=== PATIENT | female | born 1960 | race Caucasian/White ===

== ENCOUNTER 2018-08-26 05:59 | Inpatient (IN) | payer OTHER ==
--- NOTE | 2018-08-19 10:38 | HP ---
AMENDED REPORT NOW INCLUDES COSIGNER DESIGNATION - ESIGNED BEFORE ADJUSTMENT PREOPERATIVE HISTORY AND PHYSICAL: DATE OF ADMISSION: 08/26/18 PROVIDER: Yolette Allison MD * (DICTATED BY ALISE PRAKASH) CHIEF COMPLAINT: Left shoulder pain. HISTORY OF PRESENT ILLNESS: Matthew is a 58-year-old female who has had ongoing trouble for her left shoulder pain. She has tried glenohumeral subacromial injections. She has known glenohumeral osteoarthritis. She has tried physical therapy with minimal relief. She is interested in surgical intervention at this point for correction of her problem. PAST MEDICAL HISTORY: 1. Depression. 2. History of pulmonary embolus. 3. History of drug addiction, has been sober since 1983. 4. Osteoarthritis. PAST SURGICAL HISTORY: 1. Vein stripping in bilateral legs. 2. Breast reduction. 3. Gastric bypass surgery. 4. Tonsillectomy. 5. Carpal tunnel release. 6. Shoulder debridement. 7. Ankle surgery. She reports no complications with anesthesia. CURRENT MEDICATIONS: 1. Folic acid 1 mg daily. 2. Voltaren gel to her finger joints 3 times daily. 3. Venlafaxine HCl 75 mg daily. 4. Famotidine 20 mg twice daily. 5. Cyanocobalamin 1000 mcg/mL injected monthly. 6. Calcium citrate supplement 1 tab twice daily. 7. Diclofenac sodium 75 mg twice daily. 8. Multivitamin daily. 9. Vitamin C supplement 500 mg daily. 10. Requip 1 mg 1 to 2 tablets p.o. in the evening. 11. Oxycodone 10 mg q.4 hours p.r.n. 12. Sertraline 25 mg daily. 13. Oxymorphone ER 10 mg in the morning, 15 mg in the evening. ALLERGIES: No known drug allergies. FAMILY HISTORY: Positive for hypertension and kidney disease in her father, coronary artery disease in her mother. SOCIAL HISTORY: The patient lives alone. She has been on permanent disability. She quit smoking several years ago. She denies alcoholic beverage use. She denies any illicit drug use currently. REVIEW OF SYSTEMS: A 14-point review of systems was discussed with the patient and all systems were negative except discussed in the HPI. PHYSICAL EXAMINATION GENERAL: She is a well-developed, well-nourished pleasant female in no acute distress at rest. She is alert and oriented x3 with appropriate mood and affect. VITAL SIGNS: The patient is 5 feet 7 inches, 216 pounds. Blood pressure 132/78 , pulse of 78, temperature 96.7. HEENT: Normocephalic, atraumatic. Her hearing and vision are grossly intact. NECK: Her trachea is midline. RESPIRATORY: Lungs are clear to auscultation bilaterally. No wheezes, rales or rhonchi. CARDIOVASCULAR: Regular rate and rhythm. No murmurs, rubs or gallops. Normal S1, S2. ABDOMEN: Soft, nondistended, nontender. Normal bowel sounds. EXTREMITIES: Exam of the left upper extremity, skin is intact. No abrasions or open wounds. There is no erythema or warmth. There is normal alignment. No gross deformity. She has forward flexion to 100 degrees, abduction to 80 degrees, external rotation to 40 degrees. She is able to flex and extend her elbow, wrist and hand. Her sensation to light touch is intact. She has a normal vascular exam. IMPRESSION: Left shoulder glenohumeral arthritis. PLAN: The patient is to undergo left total shoulder replacement by Dr. Allison on 08/26/18. The risks, benefits and postoperative course were discussed with the patient at length and she would like to proceed. The patient will likely need an in-hospital pain management consult given her history of long-term opioid use. All the patient's questions were answered to her full satisfaction. She is understanding to call with any problems or concerns. ALISE PRAKASH [id number]/[facility] #: [id number] [facility]
[~2018-08-26 05:59] MED LIST: Buffered Lidocaine 0.9% SYRIN* 5 ML/SYR SYRINGE INTRADERM ONE; DiMENhydriNATE IV* 50 MG/ML VIAL IV PUSH PRN; HYDROmorphone INJ1* 1 MG/ML SYRINGE IV PRN; Naloxone* 0.4 MG/ML 1 ML VIAL IV PRN; Ondansetron TAB* 4 MG PO ONE; PROCHLORPERAZINE INJ 5 MG/ML 2 ML VIAL IV PRN; Scopolamine 1.5 mg* PATCH TRANSDERM PRN; oxyCODONE TAB* 5 MG TAB PO PRN
[2018-08-26] MEDS ORDERED: Dexamethasone TAB* 4 MG PO ONE (06:00)
[2018-08-26] MEDS ORDERED: Famotidine IV* 10 MG/ML 2 ML (20 mg) IV ONE (06:00)
--- OUTSIDE RECORDS SUMMARY | 2018-08-26 06:03 | XMS REPORT ---
:1960 External Reference #:[id number] Author Organization [facility] Address [address] [facility] [address] [address] [place] [address] Phone [phone] Care Team Providers Name Role Phone Beny Russo MD Primary Care Physician Unavailable Payers Type Date Identification Numbers Payment Provider Subscriber Commercial Policy Number: [id number] Jose Gonzales [employer] Name: [id number] [address] PayID: [id number] [place] [address] Advance Directives Type Date Description Status Comment Other Directive 11/25/2017 Health Care Proxy Current and Verified Problems Date Description Provider Status Onset: 06/27/2014 Restless legs Donal Hopper M.D. Active Onset: 06/27/2014 Degenerative joint disease involving Donal Hopper M.D. Active multiple joints Onset: 07/22/2017 Localized, primary osteoarthritis of the Yolette Allison MD Active shoulder region Onset: 07/16/2018 Eruption Yolette Allison MD Active Family History Date Family Member(s) Problem(s) Comments General Cirrhosis Father Cirrhosis Social History Type Date Description Comments Marital Status Lives With partner Work Status Not Currently Working ETOH Use Denies alcohol use Recreational Drug Use Former Drug User Cocaine-not since 1983 Smoking Patient is a former smoker Exercise Type/Frequency Exercises regularly Allergies, Adverse Reactions, Alerts Date Description Reaction Status Severity Comments 04/14/2014 NKDA active Medications Medication Date Status Form Strength Qnty SIG Indications Ordering Provider Methotrexate 10/10 Active Tablets 2.5mg 30tab take 4 M79.642 s capsules/tabl Kev, ets by mouth M.D. once weekly on Fridays, to start 2 weeks after your upcoming shoulder surgery Folic Acid 08/19 Active Tablets 1mg 3tabs take one L40.50 capsule/table Kev, t daily by Clementina mouth Voltaren 04/14 Active Gel 1% 1unit apply to 333.94 Donal /2014 s finger joints Clementina Hopper tid Venlafaxine HCL Active Caps ER 75mg 90cap 1 by mouth Unknown ER /0000 24HR s every day Famotidine Active Tablets 20mg 60tab take one Unknown / s tablet by mouth twice a day Cyanocobalamin Active Solution 1000mcg/M 25ml 1.0 cubic Unknown /0000 L centimeters intramuscular every month Calcium Citrate Active Tablets 180ta 1 by mouth Unknown /0000 bs twice a day Diclofenac Active Tablets 75mg 60tab take 1 tablet Unknown Sodium /0000 DR s by mouth twice a day Multi-Vitamin/M Active Tablets 30tab 1 by mouth Unknown inerals /0000 s every day Vitamin C Active Tablets 500mg 90tab 1 by mouth Unknown /0000 s every day Requip Active Tablets 1mg 30tab take one to Unknown /0000 s two tablet by mouth every evening Oxycodone HCL Active Tab ER 20mg 1/2 tab qh4 Unknown ER /0000 12H prn. Abuse-Det Sertraline HCL Active Tablets 25mg 1 by mouth Unknown /0000 every day Oxymorphone HCL Active Tablets 10mg 1 by mouth in Unknown ER /0000 ER 12HR the am Oxymorphone HCL Active Tablets 15mg 1 by mouth in Unknown ER /0000 ER 12HR the pm Acetaminophen Active Tablets 325mg 2 tablets by Unknown /0000 mouth every 6 hours as needed for pain/fever Advil Active Tablets 200mg 3 tabs 4 Unknown /0000 times a day Methotrexate 03/27 Hx Tablets 2.5mg 48tab 4 tbs by M79.643 Zsofi s mouth every Cristiano, - week [employer] 10/27 Folic Acid 03/27 Hx Tablets 1mg 90tab 1 by mouth Z79.899 Zsofi s every day Cristiano, - [employer] 08/19 Ultracet 07/21 Hx Tablets 37.5-325m 40tab 1-2 tablets Nakia /2014 g s q4-6 hour as Mario, - needed pain M.D. 11/10 Fentanyl 00/00 Hx Patches 25mcg/HR 10uni apply one Unknown /0000 72HR ts patch once - every 3 days 07/12 Ferrous Sulfate Hx Tablets 325(65Fe) 90tab 1 by mouth Unknown /0000 mg s bid - 10/27 Hydrocodone-Mark Hx Tablets 10-325mg 120ta 1 to 2 po q 4 Unknown taminophen /0000 bs hours prn - 12/11 Meclizine HCL Hx Tablets 12.5mg 12tab as needed Unknown /0000 s - 10/27 Percocet Hx Tablets 5-325mg 60tab 1-2 by mouth Unknown /0000 s every 4 to 6 - hours as 01/02 needed pain /2014 Morphine Hx Caps ER 30mg take one tab Unknown Sulfate ER /0000 24HR twice a day - as needed for 06/15 pain 1@am /2017 1@pm Medications Administered in Office Medication Date Status Form Strength Qnty SIG Indications Ordering Provider Triamcinolone 06/09/ Administered Injection Zaneb (Kenalog) 2017 MD Estefany Depomedrol 40MG 03/18/ Administered Injection Johnson F 2017 MD Keyla No Injection 11/25/ Administered Injection Zaneb 2017 MD Estefany Triamcinolone 11/25/ Administered Injection Zaneb (Kenalog) 2017 MD Estefany Triamcinolone 11/25/ Administered Injection Zaneb (Kenalog) 2017 MD Estefany Triamcinolone 06/19/ Administered Injection Zaneb (Kenalog) 2016 MD Estefany Triamcinolone 06/19/ Administered Injection Zaneb (Kenalog) 2016 MD Estefany Depomedrol 40MG 05/27/ Administered Injection Johnson F 2016 MD Keyla Vital Signs Date Vital Result Comment 08/19/2018 Height 67 inches 5'7" Weight 211.00 lb Heart Rate 91 /min BP Systolic Sitting 128 mmHg BP Diastolic Sitting 72 mmHg Respiratory Rate 14 /min Pain Level 4 BMI (Body Mass Index) 33.0 kg/m2 08/14/2018 Height 67 inches Weight 216.00 lb Heart Rate 78 /min BP Systolic 132 mmHg BP Diastolic 78 mmHg Respiratory Rate 16 /min Body Temperature 96.7 F Pain Level 4 BMI (Body Mass Index) 33.8 kg/m2 07/16/2018 Height 67 inches 5'7" Weight 203.00 lb Heart Rate 66 /min BP Systolic Sitting 116 mmHg BP Diastolic Sitting 80 mmHg Respiratory Rate 14 /min Pain Level 4 BMI (Body Mass Index) 31.8 kg/m2 06/09/2018 Height 67 inches 5'7" Weight 203.00 lb BP Systolic 130 mmHg BP Diastolic 88 mmHg Respiratory Rate 18 /min Pain Level 8 BMI (Body Mass Index) 31.8 kg/m2 03/18/2018 Heart Rate 72 /min BP Systolic 122 mmHg BP Diastolic 78 mmHg Body Temperature 97.5 F Pain Level 7 11/25/2017 Height 67 inches 5'7" Weight 203.00 lb BP Systolic 116 mmHg BP Diastolic 62 mmHg Respiratory Rate 18 /min Pain Level 7 BMI (Body Mass Index) 31.8 kg/m2 09/23/2017 Height 67 inches 5'7" Weight 203.00 lb BP Systolic 130 mmHg BP Diastolic 70 mmHg Respiratory Rate 20 /min Pain Level 0 BMI (Body Mass Index) 31.8 kg/m2 07/22/2017 Height 67 inches 5'7" Weight 203.00 lb BP Systolic 130 mmHg BP Diastolic 83 mmHg Respiratory Rate 16 /min Body Temperature 97.5 F Pain Level 1 BMI (Body Mass Index) 31.8 kg/m2 06/19/2017 Height 67 inches 5'7" Weight 203.00 lb Heart Rate 83 /min BP Systolic 140 mmHg BP Diastolic 86 mmHg Respiratory Rate 16 /min Body Temperature 97.6 F Pain Level 5 BMI (Body Mass Index) 31.8 kg/m2 05/27/2017 Height 67 inches 5'7" Weight 203.00 lb BP Systolic 140 mmHg BP Diastolic 84 mmHg Respiratory Rate 17 /min Pain Level 9 BMI (Body Mass Index) 31.8 kg/m2 03/27/2016 Height 67.5 inches 5'7.50" Weight 181.00 lb Heart Rate 76 /min BP Systolic Sitting 128 mmHg BP Diastolic Sitting 70 mmHg Respiratory Rate 14 /min Pain Level 4 BMI (Body Mass Index) 27.9 kg/m2 01/02/2015 Height 67.5 inches 5'7.50" Weight 176.38 lb Heart Rate 72 /min BP Systolic Sitting 110 mmHg BP Diastolic Sitting 62 mmHg Pain Level 0 BMI (Body Mass Index) 27.2 kg/m2 08/19/2014 Height 67.5 inches 5'7.50" Heart Rate 66 /min BP Systolic 123 mmHg BP Diastolic 76 mmHg 07/21/2014 Height 67.5 inches 5'7.50" Weight 175.00 lb Heart Rate 66 /min BP Systolic 129 mmHg BP Diastolic 79 mmHg BMI (Body Mass Index) 27.0 kg/m2 06/27/2014 Height 67.5 inches 5'7.50" Weight 182.00 lb Heart Rate 68 /min BP Systolic Sitting 118 mmHg BP Diastolic Sitting 68 mmHg Pain Level 4 BMI (Body Mass Index) 28.1 kg/m2 06/16/2014 Height 67.5 inches 5'7.50" Heart Rate 94 /min BP Systolic 109 mmHg BP Diastolic 73 mmHg 05/17/2014 Height 67.5 inches 5'7.50" Weight 188.00 lb BP Systolic 120 mmHg BP Diastolic 70 mmHg BMI (Body Mass Index) 29.0 kg/m2 04/14/2014 Height 67.5 inches 5'7.50" Weight 188.75 lb Heart Rate 75 /min BP Systolic Sitting 128 mmHg BP Diastolic Sitting 86 mmHg Pain Level 9 BMI (Body Mass Index) 29.1 kg/m2 Results Test Date Test Result H/L Range Note Urinalysis Profile 08/14/2018 Urine Color Yellow Urine Appearance Clear Urine Specific [place] 1.017 1.010-1.030 Urine pH 8.0 5-9 Urine Urobilinogen Negative Negative Urine Ketones Negative Negative Urine Protein Negative Negative Urine Leukocytes Negative Negative Urine Blood Negative Negative Urine Nitrite Negative Negative Urine Bilirubin Negative Negative Urine Glucose Negative Negative Inr/Protime 08/14/2018 Inr 0.90 0.77-1.02 Laboratory test finding 08/14/2018 Partial Thrombo Time 31.6 seconds 26.0 -36.3 PTT CBC Auto Diff 08/14/2018 White Blood Count 11.3 10^3/uL High 3.5-10.8 Red Blood Count 4.14 10^6/uL 4.00-5.40 Hemoglobin 13.0 g/dL 12.0-16.0 Hematocrit 39 % 35-47 Mean Corpuscular Volume 94 fL 80-97 Mean Corpuscular Hemoglobin 31 pg 27-31 Mean Corpuscular HGB Conc 34 g/dL 31-36 Red Cell Distribution Width 13 % 10.5-15 Platelet Count 236 10^3/uL 150-450 Mean Platelet Volume 10.0 um3 7.4-10.4 Abs Neutrophils 8.1 10^3/uL High 1.5-7.7 Abs Lymphocytes 2.2 10^3/uL 1.0-4.8 Abs Monocytes 0.7 10^3/uL 0-0.8 Abs Eosinophils 0.3 10^3/uL 0-0.6 Abs Basophils 0 10^3/uL 0-0.2 Abs Nucleated RBC 0 10^3/uL Granulocyte % 71.6 % 38-83 Lymphocyte % 19.5 % Low 25-47 Monocyte % 6.1 % 0-7 Eosinophil % 2.5 % 0-6 Basophil % 0.3 % 0-2 Nucleated Red Blood Cells % 0.1 Basic Metabolic Panel 08/14/2018 Sodium 142 mmol/L 135-145 Potassium 3.6 mmol/L 3.5-5.0 Chloride 104 mmol/L 101-111 Co2 Carbon Dioxide 32 mmol/L 22-32 Anion Gap 6 mmol/L 2-11 Glucose 89 mg/dL 70-100 Blood Urea Nitrogen 10 mg/dL 6-24 Creatinine 0.66 mg/dL 0.51-0.95 BUN/Creatinine Ratio 15.2 8-20 Calcium 9.1 mg/dL 8.6-10.3 Egfr Non- 92.0 >60 Egfr 111.3 >60 1 Type & Screen 08/14/2018 Patient Blood Type O Positive Antibody Screen NEGATIVE Urine Culture And 08/14/2018 Urine Culture SEE RESULT BELOW 2 Sensitivities CBC Auto Diff 01/11/2015 White Blood Count 6.6 10^3/uL 4.8-10.8 Red Blood Count 4.16 10^6/uL 4.0-5.4 Hemoglobin 13.3 g/dL 12.0-16.0 Hematocrit 39 % 35-47 Mean Corpuscular Volume 95 fL 80-97 Mean Corpuscular Hemoglobin 32 pg High 27-31 Mean Corpuscular HGB Conc 34 g/dL 31-36 Red Cell Distribution Width 13 % 10.5-15 Platelet Count 197 10^3/uL 150-450 Mean Platelet Volume 10 um3 7.4-10.4 Abs Neutrophils 3.6 10^3/uL 1.5-7.7 Abs Lymphocytes 2.3 10^3/uL 1.0-4.8 Abs Monocytes 0.5 10^3/uL 0-0.8 Abs Eosinophils 0.2 10^3/uL 0-0.6 Abs Basophils 0 10^3/uL 0-0.2 Abs Nucleated RBC 0 10^3/uL Granulocyte % 54.2 % 38-83 Lymphocyte % 34.5 % 25-47 Monocyte % 7.1 % 1-9 Eosinophil % 3.6 % 0-6 Basophil % 0.6 % 0-2 Nucleated Red Blood Cells % 0 Liver Function Panel 01/11/2015 Total Protein 5.9 g/dL Low 6.4-8.9 Albumin 3.9 g/dL 3.2-5.2 Globulin 2.0 g/dL 2-4 Albumin/Globulin Ratio 2.0 1-3 Total Bilirubin 0.40 mg/dL 0.2-1.0 Direct Bilirubin 0.10 mg/dL 0.03-0.18 Indirect Bilirubin 0.3 mg/dL 0.3-1.0 Alkaline Phosphatase 41 U/L 34-104 Alt 11 U/L 7-52 Ast 15 U/L 13-39 Iron & Iron Binding Capacity 01/11/2015 Iron 83 g/dL 50-212 Unsaturated Iron Binding 247 g/dL Total Iron Binding Capacity 330 g/dL 250-450 % Iron Saturation 25 % 15-55 Laboratory test finding 01/11/2015 Ferritin 29.6 ng/mL 11-307 Vitamin B12 294 pg/mL 180-914 3 Folate > 20.00 ng/mL >3.99 Hepatitis C Antibody Nonreactive Nonreactive Ssa/SSB Abs Igg 01/11/2015 SS-A/Ro Antibody <0.2 U 4 SS-B/La Antibody 0.3 U 5 Laboratory test finding 01/11/2015 C Reactive Protein < 1.00 mg/L < 5.00 6 Erythrocyte Sed Rate 10 mm/Hr 0-30 Uric Acid 4.5 mg/dL 2.3-6.6 Rheumatoid Factor <15 IU/mL <15 7 Comp Metabolic Panel 01/11/2015 Sodium 136 mmol/L 133-145 Potassium 3.9 mmol/L 3.5-5.0 Chloride 102 mmol/L 101-111 Co2 Carbon Dioxide 30 mmol/L 22-32 Anion Gap 4 mmol/L 2-11 Glucose 124 mg/dL High 70-100 Blood Urea Nitrogen 8 mg/dL 6-24 Creatinine 0.72 mg/dL 0.51-0.95 BUN/Creatinine Ratio 11.1 8-20 Calcium 8.9 mg/dL 8.6-10.3 Total Protein 5.9 g/dL Low 6.4-8.9 Albumin 3.9 g/dL 3.2-5.2 Globulin 2.0 g/dL 2-4 Albumin/Globulin Ratio 2.0 1-3 Total Bilirubin 0.40 mg/dL 0.2-1.0 Alkaline Phosphatase 41 U/L 34-104 Alt 11 U/L 7-52 Ast 15 U/L 13-39 Egfr Non- 84.4 >60 Egfr 108.6 >60 8 Laboratory test 01/11/2015 Methylmalonic Acid 0.25 nmol/mL <=0.40 9 finding HIV 1/2 AB 01/11/2015 HIV 1 2 Antibody Nonreactive Nonreactive 10 Evaluation Surgical Pathology 06/08/2014 S RUN DATE: <SEE NOTE> Comp Metabolic 04/22/2014 Sodium 138 mmol/L 133-145 Panel Potassium 4.2 mmol/L 3.7-5.6 Chloride 104 mmol/L 101-111 Co2 Carbon Dioxide 30 mmol/L 22-32 Anion Gap 4 mmol/L 2-11 Glucose 88 mg/dL 70-100 Blood Urea Nitrogen 8 mg/dL 6-24 Creatinine 0.80 mg/dL 0.51-0.95 BUN/Creatinine Ratio 10.0 8-20 Calcium 9.0 mg/dL 8.6-10.3 Total Protein 6.2 g/dL Low 6.4-8.9 Albumin 3.9 g/dL 3.2-5.2 Globulin 2.3 g/dL 2-4 Albumin/Globulin Ratio 1.7 1-3 Total Bilirubin 0.40 mg/dL 0.2-1.0 Alkaline Phosphatase 43 U/L 34-104 Alt 21 U/L 7-52 Ast 24 U/L 13-39 Egfr Non- 75.0 >60 Egfr 96.5 >60 12 1 Because ethnic data is not always readily available, this report includes an eGFR for both -Americans and non- Americans. The National Kidney Disease Education Program (NKDEP) does not endorse the use of the MDRD equation for patients that are not between the ages of 18 and 70, are , have extremes of body size, muscle mass, or nutritional status, or are non- or non-. According to the National Kidney Foundation, irrespective of diagnosis, the stage of the disease is based on the level of kidney function: Stage Description GFR(mL/min/1.73 m(2)) 1 Kidney damage with normal or decreased GFR 90 2 Kidney damage with mild decrease in GFR 60-89 3 Moderate decrease in GFR 30-59 4 Severe decrease in GFR 15-29 5 Kidney failure <15 (or dialysis) 2 SEE RESULT BELOW Name: MATTHEW REYES : [address]: Yolette Allison MD Acct: [id number] Unit: [id number] AGE: 58 Location: [facility] Re08/14/18 SEX: F Status: REG REF SPEC: [id number] RENA: 08/14/[address]: Yolette Allison MD REQ: [id number] RECD: 08/14/18 STATUS: COMP _ SOURCE: URINE SPDESC: ORDERED: Urine Culture QUERIES: Urine Source: Clean Catch Procedure Result Reported Site Urine Culture Final 08/15/18- 934 ML No Growth (<1,000 CFU/mL) * ML - Main Lab . END OF REPORT DEPARTMENT OF PATHOLOGY, [address] [place] [address] Hao Duff M.D. Director [facility] # [id number] 3 Normal Range 180 to 914 Indeterminate Range 145 to 180 Deficient Range <145 4 REFERENCE VALUE <1.0 (Negative) 5 REFERENCE VALUE <1.0 (Negative) Test Performed by: [facility] - [address] [address] Certified Ophthalmic Technologist: Valerio Sanderson II, M.D., Ph.D. 6 Acute inflammation: >10.00 7 Test Performed by: [address] [address] Certified Ophthalmic Technologist: Valerio Sanderson II, M.D., Ph.D. 8 Because ethnic data is not always readily available, this report includes an eGFR for both -Americans and non- Americans. The National Kidney Disease Education Program (NKDEP) does not endorse the use of the MDRD equation for patients that are not between the ages of 18 and 70, are , have extremes of body size, muscle mass, or nutritional status, or are non- or non-. According to the National Kidney Foundation, irrespective of diagnosis, the stage of the disease is based on the level of kidney function: Stage Description GFR(mL/min/1.73 m(2)) 1 Kidney damage with normal or decreased GFR 90 2 Kidney damage with mild decrease in GFR 60-89 3 Moderate decrease in GFR 30-59 4 Severe decrease in GFR 15-29 5 Kidney failure <15 (or dialysis) 9 Test Performed by: [place] [address] Certified Ophthalmic Technologist: Valerio Sanderson II, M.D., Ph.D. 10 It is recognized that currently available assays for the detection of antibodies to HIV-1 and/or HIV-2 may not detect all infected individuals. HIV antibodies may be undetectable in some stages of the infection and in some clinical conditions. The performance of this assay has not been established for populations of infants or children. Assayed by Chemiluminescence Microparticle Immunoassay on the Siemens Advia Centaur CP. Values obtained with different methods or kits cannot be used interchangeably.The diagnostic specificity of the ADVIA Centaur 1/O/2 Enhanced assay in the low risk population was 99.90% (6052/6058) with a 95% confidence interval of 99.78 to 99.96%. 11 RUN DATE: 06/15/14 [facility] LAB LIVE PAGE 1 RUN TIME: [address] [place] [address] Specimen Inquiry Name: MATTHEW REYES : [address]: Shivam Marinelli MD Acct: [id number] Unit: [id number] AGE: 54 Location: OR Re06/08/14 SEX: F Status: REG SD SPEC: [id number] RENA: 06/08/14- [facility] DR: Shivam Marinelli MD REQ: [id number] RECD: 06/08/148509 STATUS: SOUT _ ORDERED: Decal, LEVEL III FINAL DIAGNOSIS Loose bodies from left shoulder, excision: Osteocartilaginous loose bodies. PRE-OPERATIVE DIAGNOSIS Osteoarthritis left shoulder. GROSS DESCRIPTION The specimen is received in formalin labeled Matthew GonzalesIvette Bruce, Loose Bodies from Left Shoulder and consists of four mc-white irregular hard fragments ranging from 0.9 x 0.4 x 0.3 cm. to 2.0 x 1.6 x 1.2 cm. The specimen is sectioned and inbound sales representative sections are submitted in one cassette following decalcification. MICROSCOPIC DESCRIPTION Signed (signature on file) Hao Duff MD 1537 END OF REPORT * ML=Testing performed at Main Lab DEPARTMENT OF PATHOLOGY, [address] [place] [address] Hao Duff M.D. Director [facility] # [id number] 12 Because ethnic data is not always readily available, this report includes an eGFR for both -Americans and non- Americans. The National Kidney Disease Education Program (NKDEP) does not endorse the use of the MDRD equation for patients that are not between the ages of 18 and 70, are , have extremes of body size, muscle mass, or nutritional status, or are non- or non-. According to the National Kidney Foundation, irrespective of diagnosis, the stage of the disease is based on the level of kidney function: Stage Description GFR(mL/min/1.73 m(2)) 1 Kidney damage with normal or decreased GFR 90 2 Kidney damage with mild decrease in GFR 60-89 3 Moderate decrease in GFR 30-59 4 Severe decrease in GFR 15-29 5 Kidney failure <15 (or dialysis) Procedures Date CPT Code Description Status Comment 06/09/201881065 Inj/Aspir Major JT Or Bursa W/ US Completed 03/18/201887334 Inject/Drain Joint/Bursa Major W/O US Completed 11/25/201742152 Inject/Drain Joint/Bursa Major W/O US Completed 06/19/201741995 Inject/Drain Joint/Bursa Major W/O US Completed 05/27/201705514 Inject/Drain Joint/Bursa Major W/O US Completed 08/09/2014 95439 Carpal Tunnel Release Completed 06/08/2014 30230 arthroscopy w/removal loose body or foreign Completed body 06/08/2014 41470 arthroscopy w/removal loose body or foreign Completed body 06/08/2014 86652 Arthrotomy Glenohumeral Joint W/Exploration Completed 05/17/2014 13548 Rad Shoulder Comp, Min. 2 Views Completed 05/10/2013 Mammogram Completed Normal Encounters Type Date Location Provider CPT E/M Dx Office Visit 07/21/2018 [facility] [place] [address] D69.2 9:20a Office Visit 07/16/2018 [facility] [place] [address] M19.012 1:30p C.M.AIvette R21 Office Visit 06/09/2018 1:15p [place] [address] M19.012 Of CIvetteMLyn Office Visit 03/18/2018 2:45p [facility] Ramires 15344 M17.11 Of Hermila UNDERWOOD M25.561 Office Visit 09/23/2017 9:30a [facility] [place] [address] M19.012 C.M.AIvette Office Visit 07/22/2017 11:30a [facility] [place] [address] M19.012 C.M.AIvette Office Visit 06/19/2017 11:00a [facility] [place] [address] M25.512 C.M.AIvette M19.012 Office Visit 05/27/2017 1:30p [facility] Of [facility] Ramires 89851 M17.11 Hermila UNDERWOOD M19.012 Office Visit 03/27/2016 1:30p Rheumatology Services Ghulam Quinonez [address] M79.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 10317 333.94 Of [facility] 715.09 Office Visit 05/17/2014 1:30p [facility] Services Of Shivam Marinelli M.D. 88143 715.11 C.M.AIvette Office Visit 04/14/2014 3:00p Rheumatology Services Donal Hopper M.D. 48732 715.09 Of [facility] 333.94 Plan of Care Future Appointment(s):10/05/2018 2:30 pm - KE Cruz at Rheumatology Services [facility]09/08/2018 1:15 pm - Yolette Allison MD at Orthopedic Services [facility]08/26/2018 7:30 am - Dennise Park PA-C at Orthopedic Services [facility]08/26/2018 7:30 am - Yolette Allison MD at Orthopedic Services [facility]08/2018 - Yoel Angulo M.D.L40.50 Arthropathic psoriasis, unspecifiedNew Medication:Folic Acid 1 mgM17.11 Unilateral primary osteoarthritis, right kneeZ79.899 Other joint terminal attack controller (current) drug therapyFollow up:Follow up in 6 weeks with me or SmlmciR80.642 Pain in left handNew Medication:Methotrexate 2.5 mg
--- OUTSIDE RECORDS SUMMARY | 2018-08-26 06:04 | XMS REPORT ---
:1960 External Reference #:[id number] Author Organization [facility] Address [address] [place] [address] Phone [phone] Care Team Providers Name Role Phone Beny Russo MD Primary Care Physician Unavailable Payers Type Date Identification Numbers Payment Provider Subscriber Commercial Policy Number: [id number] Jose Gaocahy Group Name: [id number] [address] PayID: [id number] [place] [address] Advance Directives Type Date Description Status Comment [...] Form Strength Qnty SIG Indications Ordering Provider Folic Acid 03/27 Active Tablets 1mg 90tab 1 by mouth Z79.899 Zsofia /2016 s every day KE Quinonez Voltjael 04/14 Active Gel 1% 1unit apply to 333.94 Donal /2014 s finger joints Clementina Hopper tid Venlafaxine HCL Active Caps ER 75mg 90cap 1 by mouth Unknown ER /0000 24HR s every day Famotidine Active Tablets 20mg 60tab take one Unknown /0000 s tablet by mouth twice a day [...] Unknown ER /0000 ER 12HR the pm Methotrexate 03/27 Hx Tablets 2.5mg 48tab 4 tbs by M79.643 Asaelofia s mouth every Cristiano, - week DIRECTOR OF ASSESSMENT 10/27 Ultracet 07/21 Hx Tablets 37.5-325m 40tab 1-2 tablets Nakia /2014 g s q4-6 hour as Martin, - needed pain M.D. 11/10 Fentanyl Hx Patches 25mcg/HR 10uni apply one Unknown /0000 72HR ts patch once - every 3 days 07/12 Ferrous Sulfate Hx Tablets 325(65Fe) 90tab 1 by mouth Unknown /0000 mg s bid - 10/27 Hydrocodone-Mark Hx Tablets 10-325mg 120ta 1 to 2 po q 4 Unknown taminophen /0000 bs hours prn - 12/11 Meclizine HCL 0000 Hx Tablets 12.5mg 12tab as needed Unknown /0000 s - 10/27 Percocet 0000 Hx Tablets 5-325mg 60tab 1-2 by mouth Unknown /0000 s every 4 to 6 - hours as 01/02 needed pain /2014 Morphine Hx Caps ER 30mg take one tab Unknown Sulfate ER /0000 24HR twice a day - as needed for 06/15 pain 1@am /2018 1@pm Medications Administered in Office Medication Date [...] Keyla Vital Signs Date Vital Result Comment 08/14/2018 Height 67 inches Weight 216.00 lb [...] Test Date Test Result H/L Range Note Ssa/SSB Abs Igg 01/11/2015 SS-A/Ro Antibody <0.2 U 1 SS-B/La Antibody 0.3 U 2 Laboratory test finding 01/11/2015 C Reactive Protein < 1.00 mg/L < 5.00 3 Erythrocyte Sed Rate 10 mm/Hr 0-30 Uric Acid 4.5 mg/dL 2.3-6.6 Rheumatoid Factor <15 IU/mL <15 4 Comp Metabolic Panel 01/11/2015 Sodium 136 mmol/L [...] Egfr Non- 84.4 >60 Egfr 108.6 >60 5 Laboratory test finding 01/11/2015 Methylmalonic Acid 0.25 nmol/mL <= 0.40 6 HIV 1/2 AB Evaluation 01/11/2015 HIV 1 2 Antibody Nonreactive Nonreactive 7 Laboratory test finding 01/11/2015 Ferritin 29.6 ng/mL 11-307 Vitamin B12 294 pg/mL 180-914 8 Folate > 20.00 ng/mL >3.99 Hepatitis C Antibody Nonreactive Nonreactive Iron & Iron Binding Capacity 01/11/2015 Iron 83 g/dL 50-212 Unsaturated Iron Binding 247 g/dL Total Iron Binding Capacity 330 g/dL 250-450 % Iron Saturation 25 % 15-55 Liver Function Panel 01/11/2015 Total Protein 5.9 g/dL Low 6.4-8.9 Albumin 3.9 g/dL 3.2-5.2 Globulin 2.0 g/dL 2-4 Albumin/Globulin Ratio 2.0 1-3 Total Bilirubin 0.40 mg/dL 0.2-1.0 Direct Bilirubin 0.10 mg/dL 0.03-0.18 Indirect Bilirubin 0.3 mg/dL 0.3-1.0 Alkaline Phosphatase 41 U/L 34-104 Alt 11 U/L 7-52 Ast 15 U/L 13-39 CBC Auto Diff 01/11/2015 White Blood Count [...] 0-2 Nucleated Red Blood Cells % 0 Surgical Pathology 06/08/2014 S RUN DATE: 06/15/ <SEE NOTE> 9 Comp Metabolic Panel 04/22/2014 Sodium 138 mmol/L 133-145 Potassium 4.2 mmol/L 3.7-5.6 Chloride 104 mmol/L [...] Egfr Non- 75.0 >60 Egfr 96.5 >60 10 1 REFERENCE VALUE <1.0 (Negative) 2 REFERENCE VALUE <1.0 (Negative) Test Performed by: [place] [address] Traffic Sign Supervisor: Valerio Sanderson II, M.D., Ph.D. 3 Acute inflammation: >10.00 4 Test Performed by: [place] [address] Traffic Sign Supervisor: Valerio Sanderson II, M.D., Ph.D. 5 Because ethnic data is not always readily [...] 15-29 5 Kidney failure <15 (or dialysis) 6 Test Performed by: [place] [address] Traffic Sign Supervisor: Valerio Sanderson II, M.D., Ph.D. 7 It is recognized that currently available assays [...] 95% confidence interval of 99.78 to 99.96%. 8 Normal Range 180 to 914 Indeterminate Range 145 to 180 Deficient Range <145 9 RUN DATE: 06/15/14 [facility] LAB LIVE PAGE 1 RUN TIME: [address] [place] [address] Specimen Inquiry Name: MATTHEW REYES : [address]: Shivam Marinelli MD Acct: [id number] Unit: [id number] AGE: 54 Location: OR Re06/08/14 SEX: F Status: REG [facility] SPEC: [id number] RENA: 06/08/14- [facility] DR: Shivam Marinelli MD REQ: [id number] RECD: 06/08/141854 STATUS: SOUT _ ORDERED: Decal, LEVEL III [...] 1.2 cm. The specimen is sectioned and registered representative sections are submitted in one cassette following decalcification. MICROSCOPIC DESCRIPTION Signed (signature on file) Hao Duff MD 1537 END OF REPORT * ML=Testing performed at Main Lab DEPARTMENT OF PATHOLOGY, [address] [place] [address] Hao Duff M.D. Director [facility] # [id number] 10 Because ethnic data is not always readily [...] Procedures Date CPT Code Description Status Comment 06/09/2018 Inj/Aspir Major JT Or Bursa W/ US Completed 03/18/2018 Inject/Drain Joint/Bursa Major W/O US Completed 11/25/2017 Inject/Drain Joint/Bursa Major W/O US Completed 06/19/2017 Inject/Drain Joint/Bursa Major W/O US Completed 05/27/201750215 Inject/Drain Joint/Bursa Major W/O US Completed 08/09/2014 72438 Carpal Tunnel Release Completed 06/08/2014 15308 arthroscopy w/removal loose body or foreign Completed body 06/08/2014 51998 arthroscopy w/removal loose body or foreign Completed body 06/08/2014 61066 Arthrotomy Glenohumeral Joint W/Exploration Completed 05/17/2014 54312 Rad Shoulder Comp, Min. 2 Views Completed 05/10/2013 Mammogram Completed Normal Encounters Type Date Location Provider CPT E/M Dx Office Visit 07/21/2018 [facility] [address] D69.2 9:20a Office Visit 07/16/2018 [facility] [place] [address] M19.012 1:30p Hermila R21 Office Visit 06/09/2018 1:15p [facility] [place] [address] M19.012 Of Hermila Office Visit 03/18/2018 2:45p [facility] [place] Ramires 79002 M17.11 Of Hermila [place] M25.561 Office Visit 09/23/2017 9:30a [facility] [place] [address] M19.012 [facility] Office Visit 07/22/2017 11:30a [facility] [place] [address] M19.012 [facility] Office Visit 06/19/2017 11:00a [facility] [place] [address] M25.512 C.MLyn M19.012 Office Visit 05/27/2017 1:30p [facility] Of [place] 08114 M17.11 Hermila [place] M19.012 Office Visit 03/27/2016 1:30p Rheumatology Services Ghulam Quinonez, [address] M79.643 Of [facility] M25.50 Z79.899 M79.642 M79.641 M25.522 M25.512 Office Visit 01/02/2015 2:30p Rheumatology Services Asaelmontserratankush Quinonez [facility] [address] 719.49 Of [facility] 715.09 274.9 710.2 V58.69 Office Visit 07/21/2014 1:15p [facility] Of Nakia Martin [address] 354.0 C.MLyn Mcrae Office Visit 06/27/2014 10:20a Rheumatology Services Donal Hopper M.D. 73534 333.94 Of [facility] 715.09 Office Visit 05/17/2014 1:30p [facility] Of Shivam Marinelli M.D. 89196 715.11 C.M[facility]A. Office Visit 04/14/2014 3:00p Rheumatology Services Donal Hopper M.D. 53285 715.09 Of [facility] 333.94 Plan of Care Future Appointment(s):08/26/2018 7:30 am - Dennise Park PA-C at [facility]08/26/2018 7:30 am - Yolette Allison MD at [facility]08/19/2018 2:00 pm - Yoel Angulo M.D. at [facility] Services Of [facility]
[2018-08-26] MEDS ORDERED: Ondansetron ODT TAB* 4 MG ONE (06:07)
[2018-08-26] MEDS ORDERED: Dexamethasone TAB* 4 MG ONE (06:07)
[2018-08-26] MEDS ORDERED: Morphine VIAL* 10 MG/ML 1 ML VIAL ONE (06:07)
[2018-08-26] MEDS ORDERED: Famotidine TAB* 20 MG ONE (06:08)
[2018-08-26] MEDS ORDERED: Famotidine IV* 10 MG/ML 2 ML (20 mg) ONE (06:08)
[2018-08-26] MEDS ORDERED: ceFAZolin 2 GM PREMIX in ORs 2 GM/50 ML BAG IVPB ONE (06:08)
[2018-08-26] MEDS ORDERED: Midazolam* 1 MG/ML 5 ML VIAL (5 MG) ONE (06:59)
[2018-08-26] MEDS ORDERED: fentaNYL* 50 MCG/ML 2 ML VIAL (100 MCG VIAL) ONE ×2 (06:59→11:06)
[2018-08-26] MEDS ORDERED: Atracurium* 10 MG/ML 10 ML VIAL ONE (06:59)
[2018-08-26] MEDS ORDERED: KETAMINE HCL* 50 MG/ML 10 ML VIAL ONE (06:59)
[2018-08-26] MEDS ORDERED: Ropivacaine* 2 MG/ML 20 ML VIAL (0.2%) ONE (07:07)
[2018-08-26] MEDS ORDERED: Lidocaine 2% PF * 5 ML VIAL ONE (08:42)
[2018-08-26] MEDS ORDERED: Propofol* 10 MG/ML 20 ML BTL IV PUSH ONE (08:42)
[2018-08-26] MEDS ORDERED: Phenylephrine INJ* 10 MG/ML 1 ML VIAL (10 MG) ONE (08:42)
[2018-08-26] MEDS ORDERED: Bupivacaine 0.25% SDV* 30 ML ONE (08:42)
[2018-08-26] MEDS ORDERED: PROCHLORPERAZINE INJ 5 MG/ML 2 ML VIAL ONE (08:43)
[2018-08-26] MEDS ORDERED: HYDROmorphone INJ1* 1 MG/ML SYRINGE ONE (09:14)
[2018-08-26] MEDS ORDERED: hydrALAZINE IV* 20 MG/ML VIAL ONE (09:35)
[2018-08-26] MEDS ORDERED: Labetalol IV* 5 MG/ML 20 ML VIAL ONE (09:37)
[2018-08-26] MEDS ORDERED: Ondansetron ODT TAB* 4 MG PO PRN (10:28)
[2018-08-26] MEDS ORDERED: Polyethylene Glycol 3350* 17 GM PACKET PO PRN (10:28)
[2018-08-26] MEDS ORDERED: oxyCODONE TAB* 5 MG TAB PO PRN ×3 (10:28→18:07)
[2018-08-26] MEDS ORDERED: traZODone TAB* 50 MG TAB PO PRN (10:28)
[2018-08-26] MEDS ORDERED: Morphine VIAL* 4 MG/ML VIAL (1 ml vial) IV PRN ×2 (10:28→18:06)
[2018-08-26] MEDS ORDERED: Cyclobenzaprine TAB* 10 MG PO PRN (10:28)
[2018-08-26] MEDS ORDERED: Ondansetron INJ* 2 MG/ML VIAL IV PRN (10:28)
[2018-08-26] MEDS ORDERED: diPHENhydraMINE PO* 25 MG PO PRN (10:28)
[2018-08-26] MEDS ORDERED: Bisacodyl SUPP* 10 MG SUPP PR PRN (10:28)
[2018-08-26] MEDS ORDERED: Magnesium Hydroxide LIQ* 30 ML UDC PO PRN (10:28)
[2018-08-26] MEDS ORDERED: Meclizine TAB* 12.5 MG PO PRN (10:44)
[2018-08-26] MEDS ORDERED: Acetaminophen TAB* 325 MG ONE (10:56)
[2018-08-26] MEDS ORDERED: Enoxaparin(*) 40 MG/0.4 ML SYR SUBCUT SCH (11:00)
[2018-08-26] MEDS: fentaNYL* 50 MCG/ML 2 ML VIAL (100 MCG VIAL) IV PRN ×2 (11:10→11:17)
--- NOTE | 2018-08-26 11:31 | RAD ---
INDICATION: Status post left shoulder replacement surgery. COMPARISON: Comparison is made with a prior study from May 27, 2017. TECHNIQUE: 3 views of the left shoulder were obtained. FINDINGS: The patient is status post left shoulder arthroplasty. The bones and prostheses are in normal alignment. There is a surgical drain present. IMPRESSION: STATUS POST LEFT SHOULDER ARTHROPLASTY.
[2018-08-26] MEDS: Acetaminophen TAB* 325 MG PO SCH ×2 (13:45→22:02)
[2018-08-26] MEDS: ceFAZolin 1 GM in Dextrose (*) 1 GM/50 ML BAG IVPB SCH ×2 (16:33→23:45)
--- NOTE | 2018-08-26 17:48 | CONSULT ---
Consult Consult: INPATIENT PAIN CONSULTATION Matthew Barrera is a 58 year old female. She has a history of arthritic pain going back at least 10 years. It affected multiple joints including her hands and feet as well as her knees. She has recently been diagnosed with Psoriatic Arthritis. She has been on chronic opioid therapy for about 10 years. She gets her medications from Dr. Russo. According to the patient, she is on Opana ER 10 mg in the morning and 15 mg in the evening, and takes oxycodone 20 mg every 4 hours as needed during the day, with a MDD of 6. This was consistent with what is noted on I Stop. She has had left shoulder pain for a while and has seen Dr. Allison for this. Today, she underwent a left total shoulder replacement. She is fairly comfortable now, but had a shoulder block which has not worn off. I am asked to see her in consult to manage post op pain. PAST MEDICAL HISTORY: Restless Leg Syndrome, Psoriatic Arthritis, PE. Gastric Bypass. Left ankle surgery. ALLERGIES: NKDA Current Medications Acetaminophen (Tylenol Tab*) 975 mg PO Q8HR COUNT INCLUDES THE [facility] Last Admin: 08/26/18 13:45 Dose: 975 mg Bisacodyl (Dulcolax Supp*) 10 mg VT DAILY PRN PRN Reason: constipation Citalopram Hydrobromide (Celexa Tab*) 20 mg PO QAM MARLENE Cyclobenzaprine HCl (Flexeril Tab*) 10 mg PO TID PRN PRN Reason: SPASMS Diphenhydramine HCl (Benadryl Po*) 25 mg PO Q6H PRN PRN Reason: itching or sleep Docusate Sodium (Colace Cap*) 100 mg PO BID COUNT INCLUDES THE [facility] Enoxaparin Sodium (Lovenox(*)) 40 mg SUBCUT Q24H COUNT INCLUDES THE [facility] Famotidine (Pepcid Tab*) 20 mg PO QAM COUNT INCLUDES THE [facility] Cefazolin Sodium/Dextrose (Kefzol 1 Gm In Dextrose Duplex (*)) 1 gm in 50 mls @ 200 mls/hr IVPB Q8H COUNT INCLUDES THE [facility] Stop: 08/27/18 08:14 Last Admin: 08/26/18 16:33 Dose: 200 mls/hr Lactated Ringer's (Lactated Ringers 1000 Ml Bag*) 1,000 mls @ 100 mls/hr IV PER RATE COUNT INCLUDES THE [facility] Last Admin: 08/26/18 12:00 Dose: 100 mls/hr Lactulose (Lactulose*) 30 ml PO Q6H PRN PRN Reason: constipation Magnesium Hydroxide (Milk Of Magnesia Liq*) 30 ml PO Q6H PRN PRN Reason: constipation Meclizine HCl (Antivert Tab*) 12.5 mg PO Q6H PRN PRN Reason: VERTIGO Morphine Sulfate (Morphine Vial*) 2 mg IV Q2H PRN PRN Reason: PAIN - BREAKTHROUGH Ondansetron HCl (Zofran Inj*) 4 mg IV Q6H PRN PRN Reason: nausea Ondansetron HCl (Zofran Odt Tab*) 4 mg PO Q6H PRN PRN Reason: NAUSEA Oxycodone HCl (Roxycodone Tab*) 10 mg PO Q4H PRN PRN Reason: PAIN Last Admin: 08/26/18 13:46 Dose: 10 mg Oxycodone HCl (Roxycodone Tab*) 15 mg PO Q4H PRN PRN Reason: PAIN - SEVERE Oxymorphone HCl (Opana Er (Nf)) 15 mg PO QPM COUNT INCLUDES THE [facility] Last Admin: 08/26/18 17:37 Dose: 15 mg Oxymorphone HCl (Opana Er (Nf)) 10 mg PO QAM COUNT INCLUDES THE [facility] Pharmacy Profile Note (Scopolamine Patch Remove*) 1 note PATCH OFF Q72H ONE Stop: 08/29/18 05:49 Polyethylene Glycol/Electrolytes (Miralax*) 17 gm PO DAILY PRN PRN Reason: Constipation Ropinirole HCl (Requip Tab*) 3 mg PO QPM COUNT INCLUDES THE [facility] Last Admin: 08/26/18 17:37 Dose: 3 mg Trazodone HCl (Desyrel Tab*) 25 mg PO BEDTIME PRN PRN Reason: insomnia SOCIAL HISTORY: Denies Tobacco use or alcohol use. Smokes marijuana once a week. Used cocaine in high school, none since 1979. Lives with partner in one story house, [address] VITAL SIGNS: Temp Pulse Resp BP Pulse Ox 98.4 F 83 16 117/59 96 08/26/18 16:04 08/26/18 16:04 08/26/18 17:37 08/26/18 16:04 08/26/18 16:04 EXAM: GENERAL: Awake, alert and oriented LUNGS: Clear bilaterally HEART: regular rhythm ABDOMEN: Soft EXTREMITIES: Left shoulder wrapped, immobilized NEUROLOGIC: alert, oriented. Able to move both legs and right arm. ASSESSMENT: 1. Left Shoulder Replacement 2. Psoriatic Arthritis 3. Chronic Pain PLAN: Opioids will need to be adjusted to account for her chronic use. Will change oxycodone to 30 mg Q4H PRN, and change IV Morphine to 4 mg IV Q2H PRN. Given her gastric bypass, it is unclear how much she absorbs of the Opana ER, so will leave that as is. I will add bowel medications. I will follow. Thanks
[2018-08-26] MEDS ORDERED: CMCS:Oxymorphone ER (NF) 5 MG TAB PO SCH (18:00)
[2018-08-26] MEDS ORDERED: rOPINIRole TAB* 1 MG PO SCH (18:00)
[2018-08-26] MEDS: oxyCODONE TAB* 5 MG TAB PO PRN (20:36)
[2018-08-26] MEDS: Docusate CAP* 100 MG PO SCH (20:36)
[2018-08-26] MEDS ORDERED: Senna TAB PO SCH (21:00)
--- NOTE | 2018-08-26 22:57 | OP ---
CC: PCP, Beny Russo MD * DATE OF OPERATION: 08/26/18 - ROOM #349 DATE OF : 60 ATTENDING SURGEON: Yolette Allison MD ASSISTANTS: ALISE Farrell and DENIZ Patel student. ANESTHESIOLOGIST: Dr. Harper. ANESTHESIA: General, interscalene nerve block. PRE-OP DIAGNOSES: Left shoulder endstage glenohumeral arthritis with intact rotator cuff. POST-OP DIAGNOSES: Left shoulder endstage glenohumeral arthritis with intact rotator cuff. OPERATIVE PROCEDURES: Left total shoulder arthroplasty and open biceps tenodesis. COMPLICATIONS: None. ESTIMATED BLOOD LOSS: 150. IMPLANTS USED: Tornier Simpliciti #2 nucleus with a 48 head and Tri-Lock glenoid size medium 30. INDICATIONS: Matthew Barrera is a 58-year-old female with endstage glenohumeral arthritis. She has failed conservative management including physical therapy, antiinflammatory injection. She does have an intact rotator cuff. After extensive discussion of the risks, and benefits of surgery, the risks included, but are not limited to bleeding, infection, damage to nerves, vessels, surrounding structures, wound nonhealing, persistent pain, need for further surgery, scarring, stiffness, incomplete relief of symptoms, risk of anesthesia. She would like to proceed with surgical treatment. DESCRIPTION OF PROCEDURE: The patient was greeted in the preoperative area by the attending surgeon. Correct extremity was marked, consent was confirmed. The patient underwent interscalene nerve block by the anesthesiologist, after which she was brought back to operating suite where she was placed in supine position on the operating table. After which she underwent general anesthesia with endotracheal intubation. After which she was appropriately positioned in the lazy beach chair position. All bony prominences were padded. She was well secured. The left shoulder was then prepped and draped in the usual sterile fashion beginning with chlorhexidine soap, scrub, and alcohol wipe and a final prep with ChloraPrep. After appropriate surgical pause indicating side, site, procedure, administration of antibiotics, the deltopectoral incision was then made sharply with #15 blade. The soft tissue was carefully dissected to expose the deltopectoral interval. Cephalic veins was identified and taken laterally with deltoid. The soft tissues were carefully dissected. A Klobel was used to expose the clavipectoral fascia, which was then incised. The biceps had a large intracapsular ganglion, this was identified and tracked proximally and distally to determine the pec. When the pec was identified, the proximal 1 cm or so was released and the biceps was then tenodesed using a heavy nonabsorbable suture. Biceps was tenotomized proximal to that and followed proximally. Soft tissues were carefully exposed to expose the subscap. Some of her anatomy was difficult to assess and the 3 sutures were not easy to visualize, therefore, care was taken to maintain hemostasis at all times. The subscap adhesions were carefully released anteriorly. The entire subscap was visualized and released in a subscap peel type fashion. This was then tagged with #5 Ethibond suture for retraction. As the subscap peel was done, the shoulder was externally rotated. She had large osteophytes anteriorly and inferiorly and grade-4 changes to the humeral head. The supraspinatus and infraspinatus were intact and protected throughout the case. CA ligament was partially released to allow for easier access, as it was tight shoulder. After the subscap was released, the head was then gently dislocated with care to prevent any damage to the supraspinatus tendon. The head was exposed, there were large anterior osteophytes, which are removed using osteotome as well rongeur to develop the neck cut. The guide was then used to provisionally irma the neck cut using electrocautery device. The sagittal saw was then used to do the free-hand neck cut, this was found to be acceptable. The [employer] system was then used. First, the size 2 guide was then placed in the center of the head, it was found to be acceptable. The center peg was then drilled bicortically. Then the humeral surface was then reamed, after which the trial nucleus was then placed with excellent purchase and then a cap was placed to protect the head. The attention then directed to the glenoid. The head was then brought back into the wound and the posterior retractor was then used behind the glenoid, which was definitely eroded and had osteophytes. This was then worn away mostly posteriorly, the biceps was identified. The superior labrum was then identified and then biceps was removed. The superior, middle, and inferior glenohumeral ligaments were then released from the subscap to allow to free the subscap further, it was then mobilized. The subscap was tucked into the fossa and a neck retractor was then used to expose the anterior aspect of the neck. The labrum was then removed using electrocautery device. There were grade-4 changes to the glenoid socket. After this has done, there was no cartilage remaining on the socket. The appropriate fit was found to be an M30 and the centering guide was then used to center in the glenoid and it was drilled with excellent purchase. This was then reamed with a three-quarter reamer with care not to take too much bone. After this was done, the 8 mm cannulated drill was then drilled and the drill hole guide was then placed to drill the 3 pegs, which was drilled without any issue. She did have very hard bone. The glenoid was then thoroughly irrigated and lavaged and a dried while a trial was placed. The final implant was then brought to the field and the cement was mixed in the back table. Care was taken to try to dry the holes as much as possible to have a nice dry surface for the cement to adhere. The final implant was then brought in and impacted into position after cement was placed and held for approximately 10 minutes. This was found to have a good fit. At this point, attention was directed to humerus. The humerus was then brought back to the wound and the trial was removed. #5 Ethibond sutures were then passed through the humerus out to the subscapularis insertion for a later subscap closure. The final nucleus was then impacted into position. A size trial of 48 was then trialed and found to have good fit without overstuffing and appropriate shuck. The final implant was then brought to the field and impacted into position with good fit, it was checked to make sure it was appropriately positioned. The shoulder was then reduced. The wounds were then copiously irrigated with sterile saline. The subscap was closed using the previously passed #5 Ethibond suture and then #5 Ethibond was then used to close the interval as a backup suture. The wound was copiously irrigated with sterile saline. A intraarticular drain was placed because her tissues were far more friable than average. The deltopectoral interval was closed with #2 Ethibond sutures. The wounds were irrigated again and the skin was closed in layers with 2-0 Vicryl and 3-0 Monocryl. Sterile dressings were applied. A Cryo/Cuff and UltraSling were placed. She was awoken from anesthesia and returned to PACU in stable condition. POSTOPERATIVE PLAN: She will be nonweightbearing. She will be allowed passive range of motion. She will be in the sling for 6 weeks with no active range of motion other than elbow, wrist, and hand. She will start physical therapy on day #1. We will do acute pain consult due to history of pain medication. DVT prophylaxis will be Lovenox while she is in the hospital, but she will go home without any due to no previous personal or family history. She will receive 24 hour post-operative antibiotics. We will continue following her in hospital until discharge. She will see me back in 10 to 14 days. [id number]/[facility] #: [id number] MTDSagar
[2018-08-27] MEDS: oxyCODONE TAB* 5 MG TAB PO PRN ×4 (00:55→14:55)
[2018-08-27] MEDS: Acetaminophen TAB* 325 MG PO SCH ×2 (05:24→15:06)
[2018-08-27 07:04] LABS: Hematocrit 32 % (35-47); Hemoglobin 10.9 g/dl (12.0-16.0); Mean Platelet Volume 9.8 um3 (7.4-10.4); Platelet Count 225 10^3/ul (150-450)
[2018-08-27 07:16] LABS: EGFR Non-African American 118.5 (>60)
[2018-08-27] MEDS: ceFAZolin 1 GM in Dextrose (*) 1 GM/50 ML BAG IVPB SCH (07:53)
[2018-08-27] MEDS: Docusate CAP* 100 MG PO SCH (07:58)
--- NOTE | 2018-08-27 08:37 | PN ---
Progress Note - Progress Note Date of Service: 08/27/18 SOAP: Subjective: []Patient seen and examined at bedside. She feels well with well controlled pain of her left shoulder. Denies LUE numbness, CP, SOB, dizziness, nausea. Objective: []General: Well appearing, NAD LLE: drain removed without complication and tip intact. Able to flex and extend at elbow, wrist and all digits. Okay sign and thumbs up sign intact. Sensation intact to light touch throughout all digits. Radial pulse 2+. Capillary refill less than two seconds distally. BL calves supple and nontender without erythema, edema or palpable cords. Assessment: []POD 1 sp left total shoulder replacement Plan: [] Non-weight bearing for left upper extremity. No active range of motion of shoulder . Continue elbow, wrist, and hand pendulums shown by PT . Passive range of motion no forward flexion or abduction more than 90 degrees. No external rotation past 25 degrees. PT/OT 40 mg lovenox QD x [address] Dai:has changed oxycodone to 30 mg Q4H PRN, and change IV Morphine to 4 mg IV Q2H PRN. Given her gastric bypass, it is unclear how much she absorbs of the Opana ER, so will leave that as is Vital Signs Temp 98.7 F 08/27/18 11:10 Pulse 102 08/27/18 12:19 Resp 17 08/27/18 11:10 BP 126/67 08/27/18 11:10 Pulse Ox 97 08/27/18 12:19 Intake & Output 08/26/18 08/27/18 08/27/18 18:59 06:59 18:59 Intake Total 2510 2070 365 Output Total 1500 1750 300 Balance 1010 320 65 Intake: IV Fluids 2150 960 LR 2100 960 NS 50ML, Cefazolin 2G 50 IVPB 50 55 ABX - CEFAZOLIN 50 55 Oral 360 1060 310 Output: Urine 1500 1750 300 Other: Estimated Void Medium Estimated Blood Loss < 200 Comment Laboratory Last Values Hgb 10.9 g/dl (12.0-16.0) L 08/27/18 06:43 Hct 32 % (35-47) L 08/27/18 06:43 Plt Count 225 10^3/ul (150-450) 08/27/18 06:43 MPV 9.8 um3 (7.4-10.4) 08/27/18 06:43 Sodium 139 mmol/L (135-145) 08/27/18 06:43 Potassium 4.0 mmol/L (3.5-5.0) 08/27/18 06:43 Chloride 108 mmol/L (101-111) 08/27/18 06:43 Carbon Dioxide 26 mmol/L (22-32) 08/27/18 06:43 Anion Gap 5 mmol/L (2-11) 08/27/18 06:43 BUN 8 mg/dL (6-24) 08/27/18 06:43 Creatinine 0.53 mg/dL (0.51-0.95) 08/27/18 06:43 Est GFR ( Amer) 143.4 (>60) 08/27/18 06:43 Est GFR (Non-Af Amer) 118.5 (>60) 08/27/18 06:43 BUN/Creatinine Ratio 15.1 (8-20) 08/27/18 06:43 Glucose 130 mg/dL (70-100) H 08/27/18 06:43 Calcium 8.8 mg/dL (8.6-10.3) 08/27/18 06:43 <Kianna Adame - Last Filed: 08/27/18 13:14> - Progress Note SOAP: Pt seen and examined at 6 am. Agree with above note. Appreciate pain consult. Pt doing well. Neurovascularly intact. Reviewed operative findings. Will plan for discharge when medical stable and pain controlled. F/u 10-14 days. [] <Yolette Allison - Last Filed: 08/27/18 21:02>
[2018-08-27] MEDS ORDERED: CMCS:Oxymorphone ER (NF) 5 MG TAB PO SCH (09:00)
[2018-08-27] MEDS ORDERED: Famotidine TAB* 20 MG PO SCH (09:00)
[2018-08-27] MEDS ORDERED: Citalopram TAB* 20 MG PO SCH (09:00)
[2018-08-27 11:37] VITALS: BP 126/67
[2018-08-27] MEDS ORDERED: Enoxaparin(*) 40 MG/0.4 ML SYR SUBCUT SCH (12:00)
--- NOTE | 2018-08-28 13:50 | DS ---
DISCHARGE SUMMARY: DATE OF ADMISSION: 08/26/18 DATE OF DISCHARGE: 08/27/18 SURGEON: Yolette Allison M.D.* (DICTATED BY ALISE OLIVEROS) PREOP DIAGNOSIS: Left shoulder end-stage glenohumeral arthritis with rotator cuff intact. OPERATIVE PROCEDURE: Left total shoulder arthroplasty and open biceps tenodesis. HISTORY: Matthew Barrera is a 58-year-old female with end-stage glenohumeral arthritis. She failed conservative management and elected to undergo a left total shoulder arthroplasty. HOSPITAL COURSE: The patient was admitted to [facility] on . She underwent a left total shoulder arthroplasty and open biceps tenodesis without complication. She had a pain consult from Dr. Kirby on 08/26/18. Only adjustment to her pain medications included changing her oxycodone 20 mg q.4 hours to oxycodone 30 mg q.4 hours p.r.n. and he also provided IV morphine 4 mg IV q.2 hours p.r.n. On postop day #1, drain was removed without complication and tip intact, able to flex and extend at the elbow, wrist, and all digits. Okay sign and thumbs-up sign intact. Sensation intact to light touch to all digits. Radial pulse 2+. Capillary refill less than 2 seconds distally bilaterally. Calves supple and nontender without erythema, edema or palpable cords. She was deemed to be medically and orthopedically stable for discharge home. DISCHARGE MEDICATIONS: 1. Diclofenac 75 mg p.o. b.i.d. 2. Famotidine 20 mg p.o. q.a.m. 3. Ropinirole 3 mg p.o. q.p.m. 4. Oxymorphone 10 mg p.o. q.a.m. 5. Meclizine 12.5 mg p.o. q.6 hours p.r.n. 6. Vitamin C 500 mg p.o. q.a.m. 7. Ondansetron 4 mg p.o. q.4 hours p.r.n. 8. Diclofenac gel 1 topical application 4 times a day p.r.n. 9. Tessalon 100 to 200 mg p.o. t.i.d. p.r.n. 10. Oxycodone 30 mg p.o. q.4 hours p.r.n. 11. Ferrous sulfate 325 every other day. 12. Lexapro 10 mg p.o. q.a.m. 13. Oxymorphone 15 mg p.o. q.p.m. 14. Docusate 100 mg p.o. b.i.d. 15. Lovenox 40 mg subcu q.24 hours x14 days. 16. Acetaminophen 975 mg p.o. q.8 hours p.r.n. DISCHARGE PLAN: Nonweightbearing left upper extremity. No active range of motion of shoulder. Continue wrist, elbow, and hand pendulum, passive range of motion, no forward flexion or abduction more than 90 degrees, no external rotation past 25 degrees, okay to shower 08/29/18. Pain control: Pain management as he normally takes at home with the exception of adding 10 mg additional oxycodone, so he will take [address] of the 20 mg as he usually takes. I anticipate that this will only be for an additional 5 days. If he has difficulties with pain control, please contact his pain management doctor. Lovenox 40 mg every day for 2 weeks. Follow up with Dr. Allison in 10 to 14 days. ALISE OLIVEROS [id number]/CPS #: [id number] MTDD
[2018-08-29] MEDS ORDERED: Scopolamine PATCH Remove* 1 NOTE MISC PATCH OFF ONE (05:48)
== END 2018-08-27 15:18 | disposition home or self-care (01) | DRG 315 ==
LOC: AA 05:59 → SSU 11:49
PROVIDERS: ADMIT Orthopaedic Surgery; ATTEND Orthopaedic Surgery
PROC: 0RRK0JZ Replacement of Left Shoulder Joint with Synthetic Substitute, Open Approach (ICD-10-PCS; principal; 2018-08-26 07:30)
DX: M19.012 Primary osteoarthritis, left shoulder (principal); F32.9 Major depressive disorder, single episode, unspecified; L40.50 Arthropathic psoriasis, unspecified; G25.81 Restless legs syndrome; G89.29 Other chronic pain; K21.9 Gastro-esophageal reflux disease without esophagitis; M25.712 Osteophyte, left shoulder; Z86.711 Personal history of pulmonary embolism; Z98.84 Bariatric surgery status; Z82.49 Family history of ischemic heart disease and other diseases of the circulatory system; Z84.1 Family history of disorders of kidney and ureter; Z87.891 Personal history of nicotine dependence
CPT/HCPCS: 36415; 80048; 85014; 85018; 85049; A9270-GY; J0360; J0690; J0780; J1170; J1650; J2250; J2270; J2704; J2795; J3010; J8540

== ENCOUNTER 2019-07-08 11:45 | Observation (INO) | payer MEDICARE, MEDICAID ==
[~2019-07-08 11:45] MED LIST changes: -Buffered Lidocaine 0.9% SYRIN* 5 ML/SYR SYRINGE INTRADERM ONE; +Buffered Lidocaine 1% SYRIN* 1 ML/SYRINGE INTRADERM ONE; -DiMENhydriNATE IV* 50 MG/ML VIAL IV PUSH PRN; -HYDROmorphone INJ1* 1 MG/ML SYRINGE IV PRN; +Lactated Ringers 1000 ML Bag* 1,000 ML IV SCH; -Naloxone* 0.4 MG/ML 1 ML VIAL IV PRN; -Ondansetron TAB* 4 MG PO ONE; -PROCHLORPERAZINE INJ 5 MG/ML 2 ML VIAL IV PRN; -Scopolamine 1.5 mg* PATCH TRANSDERM PRN; +Sodium Citrate/Citric Acid* 15 ML UDC PO ONE; -oxyCODONE TAB* 5 MG TAB PO PRN
[2019-07-19] MEDS ORDERED: Buffered Lidocaine 1% SYRIN* 1 ML/SYRINGE INTRADERM ONE (13:34)
[2019-07-20] MEDS ORDERED: Lactated Ringers 1000 ML Bag* 1,000 ML IV SCH ×2 (06:00→19:00)
--- OUTSIDE RECORDS SUMMARY | 2019-07-20 09:59 | XMS REPORT | Continuity of Care Document ---
:1960 External Reference #:[id number] Author Name ALISE Everett (transmitted by agent of provider Gail Hollingsworth) Address [address] [place] [address] Care Team Providers Name Role Phone Beny Russo MD - Internal Care Team Information [facility] Sales Medicine Sivakumar Zhang MD - Family Care Team Information [facility] Sales Medicine Problems Active Problems Provider Date Restless legs Donal Hopper M.D. Onset: 06/27/2014 Degenerative joint disease involving multiple Donal Hopper M.D. Onset: 06/27 joints Localized, primary osteoarthritis of the Yolette Allison MD Onset: 07/22/2017 shoulder region Eruption Yolette Allison MD Onset: 07/16/2018 Prosthetic arthroplasty of shoulder Yolette Allison MD Onset: 10/06/2018 Social History Type Date Description Comments Sex Unknown ETOH Use Denies alcohol use Tobacco Use Start: Unknown End: Patient is a former smoker Unknown Recreational Drug Use Denies Drug Use Smoking Status Reviewed: 07/02/19 Patient is a former smoker Exercise Type/Frequency Exercises regularly Allergies, Adverse Reactions, Alerts Description No Known Drug Allergies Medications Active Medications SIG Qnty Indications Ordering Date Provider Leflunomide Take One Tablet By 30tabs M06.4 Ghulam Quinonez, 10/05/2018 20mg Mouth Every Day JIG BUILDER Tablets Voltaren apply to finger 1units 333.94 Donal Hopper, 04/14/2014 1% Gel joints tid M.D. Neurontin 2 by mouth every Unknown 300mg night at bedtime Capsules Oxymorphone HCL ER 1 PO bid Silcoff, 20mg MD Beny Tablets ER 12HR Advil 3 tabs 4 times a day Unknown 200mg Tablets Acetaminophen 2 tablets by mouth Unknown 325mg every 6 hours as Tablets needed for pain/fever Sertraline HCL 1 by mouth every day Unknown 25mg Tablets Oxycodone HCL ER ( Not Longer Taking) Unknown 20mg 1/2 tab qh4 prn. Tab ER 12H Abuse-Det Requip take one to two 30tabs Unknown 1mg Tablets tablet by mouth every evening Vitamin C 1 by mouth every day 90tabs Unknown 500mg Tablets Multi-Vitamin/Mineral 1 by mouth every day 30tabs Unknown s Tablets Diclofenac Sodium take 1 tablet by 60tabs Unknown 75mg mouth twice a day Tablets DR Calcium Citrate 1 by mouth twice a 180tabs Unknown day Tablets Cyanocobalamin 1.0 cubic 25ml Unknown centimeters 1000mcg/ML Solution intramuscular every month Famotidine take one tablet by 60tabs Unknown 20mg Tablets mouth twice a day Venlafaxine HCL ER 1 by mouth every day 90caps Unknown 75mg Caps ER 24HR History Medications Medrol take as directed 21units M25.579 Ghulam Quinonez, 03/18/2019 - 4mg until finished as JIG BUILDER 03/26/2019 TBPK medrol dose pack Medications Administered in Office Medication SIG Qnty Indications Ordering Provider Date Triamcinolone (Kenalog) Yolette Allison MD 06/09/2018 Injection Depomedrol 40MG Johnson Ramires MD 03/18/2018 Injection No Injection Yolette Allison MD 11/25/2017 Injection Triamcinolone (Kenalog) Yolette Allison MD 11/25/2017 Injection Triamcinolone (Kenalog) Yolette Allison MD 11/25/2017 Injection Triamcinolone (Kenalog) Yolette Allison MD 06/19/2017 Injection Triamcinolone (Kenalog) Yolette Allison MD 06/19/2017 Injection Depomedrol 40MG Johnson Ramires MD 05/27/2017 Injection Immunizations Description No Information Available Vital Signs Date Vital Result Comment 07/02/2019 10:10am Height 67 inches 5'7" Weight 205.00 lb Heart Rate 84 /min BP Systolic 120 mmHg BP Diastolic 68 mmHg Body Temperature 98.5 F Pain Level 9 O2 % BldC Oximetry 94 % BMI (Body Mass Index) 32.1 kg/m2 05/28/2019 12:38pm Height 67 inches 5'7" Weight 202.00 lb BP Systolic Sitting 140 mmHg BP Diastolic Sitting 80 mmHg Pain Level 7 BMI (Body Mass Index) 31.6 kg/m2 Results Test Date Facility Test Result H/L Range Note CBC No Diff 07/01/2019 [facility] White Blood 6.5 10^3/uL Normal 3.5-10.[address] [place] [address] [phone] Red Blood Count 4.25 10^6/uL Normal 3.70-4.87 Hemoglobin 12.6 g/dL Normal 12.0-16.0 Hematocrit 39 % Normal 35-47 Mean Corpuscular Volume 91 fL Normal 80-97 Mean Corpuscular Hemoglobin 30 pg Normal 27-31 Mean Corpuscular HGB Conc 32 g/dL Normal 31-36 Red Cell Distribution Width 14 % Normal 10-15 Platelet Count 208 10^3/uL Normal 150-450 Mean Platelet Volume 11.2 fL High 7.4-10.4 Laboratory test 07/01/2019 [facility] HCG 0.73 mIU/mL [address] [place] [address] [phone] Basic Metabolic 07/01/2019 [facility] Sodium 139 mmol/L Normal 135-[address] [place] [address] [phone] Potassium 4.5 mmol/L Normal 3.5-5.0 Chloride 104 mmol/L Normal 101-111 Co2 Carbon Dioxide 30 mmol/L Normal 22-32 Anion Gap 5 mmol/L Normal 2-11 Glucose 94 mg/dL Normal 70-100 Blood Urea Nitrogen 14 mg/dL Normal 6-24 Creatinine 0.73 mg/dL Normal 0.51-0.95 BUN/Creatinine Ratio 19.2 Normal 8-20 Calcium 9.0 mg/dL Normal 8.6-10.3 Egfr Non- 81.6 >60 Egfr 98.7 >60 2 Inr/Protime 07/01/2019 [facility] Inr 0.98 Normal 0.82-1.[address] [place] [address] [phone] Laboratory test 07/01/2019 [facility] Partial 31.2 Normal 26.0 -38.[address] [place] [address] Time PTT [phone] Type & Screen 07/01/2019 [facility] Patient O Positive [address] Blood Type [place], [place] [id number] [phone] Antibody Screen NEGATIVE Laboratory test 04/19/2019 [facility] Uric Acid 3.9 mg/dL Normal 2.3-6.[address] [place], [place] [id number] [phone] CBC Auto Diff 03/17/2019 [facility] White 5.3 Normal 3.5-10.8 [address] [facility] Blood 10^3/[place] [address] Count [phone] Red Blood Count 4.19 10^6/uL Normal 3.70-4.87 Hemoglobin 12.6 g/dL Normal 12.0-16.0 Hematocrit 38 % Normal 35-47 Mean Corpuscular Volume 91 fL Normal 80-97 Mean Corpuscular Hemoglobin 30 pg Normal 27-31 Mean Corpuscular HGB Conc 33 g/dL Normal 31-36 Red Cell Distribution Width 15 % Normal 10.5-15 Platelet Count 180 10^3/uL Normal 150-450 Mean Platelet Volume 10.5 fL High 7.4-10.4 Abs Neutrophils 2.4 10^3/uL Normal 1.5-7.7 Abs Lymphocytes 1.9 10^3/uL Normal 1.0-4.8 Abs Monocytes 0.4 10^3/uL Normal 0-0.8 Abs Eosinophils 0.5 10^3/uL Normal 0-0.6 Abs Basophils 0.1 10^3/uL Normal 0-0.2 Abs Nucleated RBC 0.0 10^3/uL Granulocyte % 45.5 % Lymphocyte % 35.9 % Monocyte % 8.2 % Eosinophil % 9.4 % Basophil % 1.0 % Nucleated Red Blood Cells % 0.0 Comp Metabolic 03/17/2019 [facility] Sodium 141 mmol/L Normal 135-[address] [place] [address] [phone] Potassium 3.8 mmol/L Normal 3.5-5.0 Chloride 108 mmol/L Normal 101-111 Co2 Carbon Dioxide 24 mmol/L Normal 22-32 Anion Gap 9 mmol/L Normal 2-11 Glucose 101 mg/dL High 70-100 Blood Urea Nitrogen 10 mg/dL Normal 6-24 Creatinine 0.66 mg/dL Normal 0.51-0.95 BUN/Creatinine Ratio 15.2 Normal 8-20 Calcium 8.8 mg/dL Normal 8.6-10.3 Total Protein 6.0 g/dL Low 6.4-8.9 Albumin 4.0 g/dL Normal 3.2-5.2 Globulin 2.0 g/dL Normal 2-4 Albumin/Globulin Ratio 2.0 Normal 1-3 Total Bilirubin 0.50 mg/dL Normal 0.2-1.0 Alkaline Phosphatase 70 U/L Normal 34-104 Alt 12 U/L Normal 7-52 Ast 18 U/L Normal 13-39 Egfr Non- 92.0 >60 Egfr 111.3 >60 4 Laboratory test 03/17/2019 [facility] C Reactive 2.33 mg/L Normal <8.[address] [place] [address] [phone] Erythrocyte Sed Rate 10 mm/Hr Normal 0-29 CBC Auto 01/15/2019 [facility] White Blood 6.1 10^3/uL Normal 3.5-10.[address] [place] [address] [phone] Red Blood Count 4.47 10^6/uL Normal 4.00-5.40 Hemoglobin 13.2 g/dL Normal 12.0-16.0 Hematocrit 40 % Normal 35-47 Mean Corpuscular Volume 90 fL Normal 80-97 Mean Corpuscular Hemoglobin 29 pg Normal 27-31 Mean Corpuscular HGB Conc 33 g/dL Normal 31-36 Red Cell Distribution Width 14 % Normal 10.5-15 Platelet Count 182 10^3/uL Normal 150-450 Mean Platelet Volume 10.7 fL High 7.4-10.4 Abs Neutrophils 2.6 10^3/uL Normal 1.5-7.7 Abs Lymphocytes 2.2 10^3/uL Normal 1.0-4.8 Abs Monocytes 0.5 10^3/uL Normal 0-0.8 Abs Eosinophils 0.7 10^3/uL High 0-0.6 Abs Basophils 0.1 10^3/uL Normal 0-0.2 Abs Nucleated RBC 0 10^3/uL Granulocyte % 43.4 % Lymphocyte % 35.8 % Monocyte % 8.2 % Eosinophil % 11.3 % Basophil % 1.3 % Nucleated Red Blood Cells % 0 Comp Metabolic 01/15/2019 [facility] Sodium 139 mmol/L Normal 135-[address] [place] [address] [phone] Potassium 4.1 mmol/L Normal 3.5-5.0 Chloride 105 mmol/L Normal 101-111 Co2 Carbon Dioxide 30 mmol/L Normal 22-32 Anion Gap 4 mmol/L Normal 2-11 Glucose 91 mg/dL Normal 70-100 Blood Urea Nitrogen 8 mg/dL Normal 6-24 Creatinine 0.81 mg/dL Normal 0.51-0.95 BUN/Creatinine Ratio 9.9 Normal 8-20 Calcium 8.6 mg/dL Normal 8.6-10.3 Total Protein 5.8 g/dL Low 6.4-8.9 Albumin 3.8 g/dL Normal 3.2-5.2 Globulin 2.0 g/dL Normal 2-4 Albumin/Globulin Ratio 1.9 Normal 1-3 Total Bilirubin 0.40 mg/dL Normal 0.2-1.0 Alkaline Phosphatase 69 U/L Normal 34-104 Alt 17 U/L Normal 7-52 Ast 20 U/L Normal 13-39 Egfr Non- 72.6 >60 Egfr 87.9 >60 5 Laboratory test 01/15/2019 [facility] C Reactive 1.02 mg/L Normal <8.01 [address] [place] [address] [phone] Erythrocyte Sed Rate 10 mm/Hr Normal 0-30 7 1 <5.0 Negative 5.0 - 25.0 Indeterminate (Repeat testing recommended after 72 hours) >25.0 Positive Perimenopausal women can display HCG levels of up to 20 mIU/mL 2 Because ethnic data is not always readily [...] 15-29 5 Kidney failure <15 (or dialysis) 3 Standard intensity warfarin therapeutic range: 2.0-3.0 High intensity warfarin therapeutic range: 2.5-3.5 4 Because ethnic data is not always readily [...] 15-29 5 Kidney failure <15 (or dialysis) 5 Because ethnic data is not always [...] 5 Kidney failure <15 (or dialysis) 6 ORDERED:10/05/18 ;04/04/19 STANDING ORDER 7 Test Performed by: [facility] [address] [place] [id number] Hao Duff M.D. Director of Laboratory Procedures Date Code Description Status 05/10/2013 [id number] Mammogram Completed Medical Devices Description No Information Available Encounters Type Date Location Provider Dx Diagnosis Office Visit 04/19/2019 Rheumatology Ghulam Quinonez, M25.572 Pain in left 2:00p [facility] - JIG BUILDER ankle and joints Ccmob of left foot Z79.899 Other manager long term care (current) drug therapy Office Visit 03/26/2019 2:00p Neurosurgery S[place] M48.061 Spinal stenosis, Services Of ALISE Bruce lumbar region without neurogenic pito M47.26 Other spondylosis with radiculopathy, lumbar region Office Visit 03/18/2019 Rheumatology Ghulam M06.4 Inflammatory 8:30a Services Of KE Vital polyarthropathy Ccmob M54.5 Low back pain M25.572 Pain in left ankle and joints of left foot Z79.899 Other manager long term care (current) drug therapy Office Visit 02/04/2019 10:15a Orthopedic Yolette Allison, Z96.612 Presence of left Services Of artificial [facility] shoulder joint Z47.1 Aftercare following joint replacement surgery Office Visit 01/18/2019 Rheumatology Asaelofiankush M06.4 Inflammatory 3:00p Services Of TD LopezP polyarthropathy Z79.899 Other long-term (current) drug therapy Z96.612 Presence of left artificial shoulder joint Assessments Date Code Description Provider 06/02/2019 M48.062 Spinal stenosis, lumbar region with Davis Bang MD neurogenic claudication 06/02/2019 M51.36 Other intervertebral disc degeneration, Davis Bang MD lumbar region 05/28/2019 M48.062 Spinal stenosis, lumbar region with Davis Bang MD neurogenic claudication 05/28/2019 M51.16 Intervertebral disc disorders with Davis Bang MD radiculopathy, lumbar reg 04/19/2019 M25.572 Pain in left ankle and joints of left Ghulam Quinonez, JIG BUILDER foot 04/19/2019 Z79.899 Other manager long term care (current) drug therapy Asaelofia Cristiano, JIG BUILDER 03/26/2019 M48.061 Spinal stenosis, lumbar region without ALISE Everett neurogenic claudicati 03/26/2019 M47.26 Other spondylosis with radiculopathy, ALISE Everett lumbar region 03/18/2019 M06.4 Inflammatory polyarthropathy Zsofia Cristiano, JIG BUILDER 03/18/2019 M54.5 Low back pain Sherleya Cristiano, JIG BUILDER 03/18/2019 M25.572 Pain in left ankle and joints of left Zsmontserrata Cristiano, JIG BUILDER foot 03/18/2019 Z79.899 Other manager long term care (current) drug therapy Asaelofia Cristiano, JIG BUILDER 02/04/2019 Z96.612 Presence of left artificial shoulder Yolette Allison MD joint 02/04/2019 Z47.1 Aftercare following joint replacement Yolette Allison MD surgery 01/18/2019 M06.4 Inflammatory polyarthropathy Ghulam Quinonez, JIG BUILDER 01/18/2019 Z79.899 Other manager long term care (current) drug therapy Asaelofia Cristiano, JIG BUILDER 01/18/2019 Z96.612 Presence of left artificial shoulder Zsmontserrata Cristiano, JIG BUILDER joint Plan of Treatment Future Appointment(s):10/11/2019 2:30 pm - Davis Bang MD at [facility]surgery [facility]08/09/2019 1:30 pm - Davis Bang MD at [facility]surgery [facility]07/16/2019 9:30 am - Davis Bang MD at [facility]surgery [facility]/08/2019 10:30 am - ALISE Everett at [facility]surgery [facility]07/08/2019 10:30 am - Davis Bang MD at [facility]surgery [facility]/06/2019 2:30 pm - Davis Bang MD at [facility]surgery [facility]07/22/2019 10:30 am - KE Cruz at Rheumatology [facility] Functional Status Description No Information Available Mental Status Description No Information Available Referrals Refer to Dr Reason for Referral Status Appt Date Sivakumar Pedro MD Patient with bilateral radicular pain has disc Sent hernation atL3/L4 and dsic protrusion at L5/S1 [address] [place] [address] [phone]
--- OUTSIDE RECORDS SUMMARY | 2019-07-20 09:59 | XMS REPORT | Continuity of Care Document ---
:1960 External Reference #:[id number] Author Name Beny Russo M.D. Address [address] [place] [id number] Care Team Providers Name Role Phone Darion Sotomayor MD - Surgery Care Team Information Cart Driver [phone] [facility] - Surgery Care Team Information Cart Driver Manisha Morales MD - Gynecology Care Team Information Cart Driver Milad Gaines MD PhD - Rheumatology Care Team Information Cart Driver Melida Willis MD - Obstetrics & Care Team Information Cart Driver [phone] Gynecology Shivam Marinelli MD - Orthopaedic Care Team Information Cart Driver [phone] Surgery Tomas Henriquez DO - Pain Medicine Care Team Information Cart Driver [phone] Alfred Pickett MD - Internal Care Team Information Cart Driver [phone] [facility] - Care Team Information Cart Driver [phone] Gastroenterology [facility] - Care Team Information Cart Driver [phone] Orthopaedic Surgery Yeol Angulo M.D. - Rheumatology Care Team Information Cart Driver Chey Parra MD - Physical Care Team Information Cart Driver Medicine & Rehabilitation Problems Active Problems Provider Date Extrapyramidal disease Beny Russo M.D. Onset: 11/04/2003 Premenstrual tension syndrome Beny Russo M.D. Onset: 11/04/2003 Pain in limb Beny Russo M.D. 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 Onset: 2004 cause Gastroesophageal reflux disease Beny Russo M.D. Onset: 02/12/2006 Sleep apnea Beny Russo M.D. Onset: 02/23/2010 Restless legs Beny Russo M.D. Onset: 10/26/2010 Generalized osteoarthritis of the hand Beny Russo M.D. Onset: 2009 Anemia Beny Russo M.D. Onset: 02/15/2013 Iron deficiency anemia Beny Russo M.D. Onset: 02/15/2013 Bariatric Surgery Status Beny Russo M.D. Onset: 02/15/2013 Chronic pain syndrome Beny Russo M.D. Onset: 02/15/2013 Incontinence without sensory awareness Edith Denise RPA-C Onset: 04/12 Social History Type Date Description Comments Sex Unknown Tobacco Use Reviewed: 06/23/19 Denies Cigarette Use quit in 1989; exposed to passive tobacco smoke through partner Smoking Status Reviewed: 06/23/19 Denies Cigarette Use quit in 1989; exposed to passive tobacco smoke through partner ETOH Use 06/23/2019 Denies alcohol use Recreational Drug Use Does Not Currently Use Illegal Drugs. Has Used In The Past Tobacco Use Start: Unknown Non Smoker Allergies, Adverse Reactions, Alerts Active Allergies Reaction Severity Comments Date Ibuprofen GI S/Es 09/27/2003 Naprosyn Vomiting 09/27/2003 Inactive Allergies Oxycodone N/V 07/19/2005 Medications Active Medications SIG Qnty Indications Ordering Date Provider Oxymorphone HCL ER 1 by mouth every 21tabs G89.4 Rafaela, 04/19/2019 8hours; for chronic Clementina Swan 20mg Tablets ER pain; Rx due 12HR 06/29/19 Gabapentin Take 1 Capsule By 90caps M54.5 Angel Jack, 04/19/2019 300mg Mouth Tonight Then D.O. Capsules One Capsule Twice A Day For 1 Day Then Take One Capsule Three Times A Day For Back And Leg Pain Leflunomide 1 tablet daily, for Unknown 10/05/2018 20mg inflammatory Tablets arthritis Ferrous Sulfate Take One Tablet By 60tabs D50.9 Rafaela, 01/12/2018 Mouth Twice A Day Clementina Swan 325(65Fe) mg On Empty Stomach Tablets With Oj Or Vit C. Escitalopram Take One Tablet By 30tabs F34.1 Rafaela, 10/06/2017 Oxalate Mouth Every Day For Clementina Swan 10mg Mood Tablets Ropinirole HCL Take One To Two 60tabs G25.81 Rafaela, 08/08/2017 1mg Tablets By Mouth Clementina Swan Tablets Every Evening For Restless Legs Benzonatate 1-2 by mouth three 30caps R05 Rafaela, 01/03/2016 100mg times a day as Clementina Swan Capsules needed for cough Voltaren Apply 1-2 Grams Up 200units M15.0 Rafaela, 07/14/2015 1% Gel To Four Times A Day Clementina Swan To Painful Joints On Hands Ondansetron dissolve 1 tablet 30tabs R11.0 Rafaela, 12/13/2014 4mg by mouth every 4 Clementina Swan Tablets Dispers hours as needed for nausea Diclofenac Sodium Take One Tablet By 180tabs M12.9 Rafaela, 05/17/2014 Mouth Two Times A Clementina Swan 75mg Tablets DR Day as Needed For Joint Pains M15.0 Famotidine Take One Tablet By 60tabs K21.9 Valerio Boss 02/15/2013 20mg Tablets Mouth Twice A Day Clementina Renee For Acid Reflux BD Use as Directed 10units Beny Russo, 02/14/2013 3ml Monthly For M.DIvette Vitamin B-12 Injection Cyanocobalamin Inject 1ML Once 1units Z98.84 Beny Russo, 12/13/2012 1000mcg/ML Monthly M.DIvette Solution D51.9 Calcium Citrate 1 chewable 2x/day Unknown 05/07/2012 ?Dose Multivitamin & Mineral one tab po bid Unknown 10/25/2010 Tablet Meclizine HCL 1-2 po q6h prn for 50tabs 386.11 Valerio Boss 11/17/2009 12.5mg dizzyness Clementina Renee Tablets Vit C 1 po qd 0tabs Beny Russo, 03/31/2009 500mg Tablets M.D. History Medications Oxycodone HCL 1/2 tablet by 90tabs G89.4 Beny Russo, 04/19/2019 - 30mg mouth up to every M.D. 06/28/2019 Tablets 3hours as needed for severe pain; rx due 06/09/19 M25.512 Medications Administered in Office Medication SIG Qnty Indications Ordering Provider Date injection, kenalog, 10 mg Beny Russo M.D. 11/05/2016 Injection injection, kenalog, 10 mg Beny Russo M.D. 02/12/2016 Injection B12 Injection Beny Russo M.D. 02/15/2014 Injection SC/Im Injections Beny Russo M.D. 02/15/2014 Injection B12 Injection Nurse's Schedule 09/02/2011 Injection SC/Im Injections Nurse's Schedule 09/02/2011 Injection SC/Im Injections Beny Russo M.D. 09/02/2011 Injection B12 Injection Nurse's Schedule 08/02/2011 Injection SC/Im Injections Nurse's Schedule 08/02/2011 Injection B12 Injection Nurse's Schedule 07/02/2011 Injection SC/Im Injections Nurse's Schedule 07/02/2011 Injection B12 Injection Beny Russo M.D. 05/27/2011 Injection SC/Im Injections Beny Russo M.D. 05/27/2011 Injection TB Intradermal Test Nurse's Schedule 01/08/2010 Injection H1N1 Swine Flu Vaccine Beny Russo M.D. 11/17/2009 Injection TB Intradermal Test Beny Russo M.D. 12/29/2006 Injection TB Intradermal Test Nurse's Schedule 12/29/2006 Injection Immunizations CPT Code Status Date Vaccine Lot # [id number] Given 07/31/2018 Influenza Virus Vaccine, Quadrivalent, Split, [id number] Preservative Free 29392 Given 08/08/2017 Influenza Virus Vaccine, Quadrivalent, Split, [id number] Preservative Free 09684 Given 02/10/2017 Td Immunization [id number] 51717 Given 07/05/2016 Influenza Virus Vaccine, Quadrivalent, Split, [id number] Preservative Free 33113 Given 07/04/2015 Influenza Virus Vaccine, Quadrivalent, Split, [id number] Preservative Free 77079 Given 10/10/2014 Influenza Virus Vaccine, Quadrivalent, Split, [id number] Preservative Free 69554 Given 08/10/2013 Flu, Split Virus 3Yrs [id number] 46139 Given 08/02/2011 Flu, Split Virus 3Yrs [id number] 55988 Given 11/17/2009 Flu, Split Virus 3Yrs [id number] 94764 Given 11/28/2006 Adacel or Boostrix, TDaP [id number] Vital Signs Date Vital Result Comment 06/28/2019 3:35pm BP Systolic 160 mmHg BP Diastolic 80 mmHg 06/23/2019 1:30pm BP Systolic 154 mmHg BP Diastolic 90 mmHg BP Systolic Recheck 154 mmHg BP Diastolic Recheck 94 mmHg Heart Rate 120 /min reg Weight 199.00 lb Results Test Date Facility Test Result H/L Range Note Drug Abuse 06/23/2019 [facility] Urine Alcohol Negative mg/dL Cutoff : 10 W/Confirm, [phone] Ur Urine Amphetamine Negative ng/mL 1 Urine Barbiturates Negative ng/mL 2 Urine Benzodiazepines Negative ng/mL 3 Urine Cocaine Negative ng/mL 4 Urine Methadone Negative ng/mL Negative 5 Urine Opiates Negative ng/mL Negative 6 Urine Phencyclidine Negative ng/mL Cutoff: 25 Urine Tetrahydrocannabinol Presumptive Posi <SEE NOTE> ng/mL Abnormal Cutoff : 50 7 Urine Drug Screen Inhouse 04/19/2019 In House Ua Cocaine - Ua Opiates + Ua Amphetamines - Urine Methanphetamines - Urine Benzodiazepines QN [place] - Urine Oxycodone QL + Comp Metabolic Panel 03/17/2019 [facility] Sodium 141 mmol/L Normal 135-145 [phone] Potassium 3.8 mmol/L Normal 3.5-5.0 Chloride 108 [...] Egfr Non- 92.0 >60 Egfr 111.3 >60 8 Laboratory test 03/17/2019 [facility] C Reactive 2.33 mg/L Normal < 8.01 finding [phone] Protein CBC Auto Diff 03/17/2019 [facility] White Blood 5.3 Normal 3.5-10.8 [phone] Count 10^3/uL Red Blood Count 4.19 10^6/uL Normal 3.70-4.87 [...] % Nucleated Red Blood Cells % 0.0 Laboratory test 03/17/2019 [facility] Erythrocyte Sed 10 mm/Hr Normal 0-29 finding [phone] Rate 1 REFERENCE VALUE Cutoff: 500 2 REFERENCE VALUE Cutoff: 200 3 REFERENCE VALUE Cutoff: 100 4 REFERENCE VALUE Cutoff: 150 5 REFERENCE VALUE Cutoff: 300 6 REFERENCE VALUE Cutoff: 300 7 Presumptive Positive Drug confirmation to follow. Presumptive Positive means that the screening method is positive, but the test needs to be run by a confirmatory method before being finalized. ADDITIONAL INFORMATION This report is intended for use in clinical monitoring or management of patients. It is not intended for use in employment-related testing. This test has been modified from the health center associate's instructions. Its performance characteristics were determined by [facility] in a manner consistent with CLIA requirements. This test has not been cleared or approved by the U.S. Food and Drug Administration. Test Performed by: [facility] [address] [place] [address] 8 Because ethnic data is not always [...] Kidney failure <15 (or dialysis) Procedures Date Code Description Status 06/23/2019 37321 Electrocardiogram Complete Completed 12/10/2018 20795834 Mammogram Completed 03/10/2011 16713202 Colonoscopy Completed Medical Devices Description No Information Available Encounters Type Date Location Provider Dx Diagnosis Office Visit 06/23/2019 Main Office Beny Russo M48.062 Spinal stenosis, 1:30p M.D. lumbar region with neurogenic claudication G89.4 Chronic pain syndrome Z79.891 [facility] (current) use of opiate analgesic G25.81 Restless legs syndrome M15.0 Primary generalized (osteo)arthritis R03.0 Elevated blood-pressure reading, w/o diagnosis of htn R00.0 Tachycardia, unspecified Z01.818 Encounter for other preprocedural examination Office Visit 04/19/2019 4:00p Main Office Beny Russo G89.4 Chronic pain M.D. syndrome Z79.891 [facility] (current) use of opiate analgesic M48.062 Spinal stenosis, lumbar region with neurogenic claudication M54.16 Radiculopathy, lumbar region M15.0 Primary generalized (osteo)arthritis M54.5 Low back pain Office Visit 03/10/2019 11:15a Main Office Beny Russo R60.0 Localized edema M.D. Office Visit 02/13/2019 9:00a Main Office Beny Russo G89.4 Chronic pain M.D. syndrome Z79.891 [facility] (current) use of opiate analgesic M48.062 Spinal stenosis, lumbar region with neurogenic claudication M54.16 Radiculopathy, lumbar region Assessments Date Code Description Provider 06/28/2019 G89.4 Chronic pain syndrome Beny Russo M.D. 06/28/2019 Z79.891 [facility] (current) use of opiate analgesic Beny Russo M.D. 06/23/2019 M48.062 Spinal stenosis, lumbar region with Beny Russo M.D. neurogenic claudication 06/23/2019 G89.4 Chronic pain syndrome Beny Russo M.D. 06/23/2019 Z79.891 [facility] (current) use of opiate analgesic Beny Russo M.D. 06/23/2019 G25.81 Restless legs syndrome Beny Russo M.D. 06/23/2019 M15.0 Primary generalized (osteo)arthritis Beny Russo M.D. 06/23/2019 R03.0 Elevated blood-pressure reading, without Beny Russo M.D. diagnosis of hypertension 06/23/2019 R00.0 Tachycardia, unspecified Beny Russo M.D. 06/23/2019 Z01.818 Encounter for other preprocedural Beny Russo M.D. examination 04/19/2019 G89.4 Chronic pain syndrome Beny Russo M.D. 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 04/19/2019 M48.062 Spinal stenosis, lumbar region with Beny Russo M.D. neurogenic claudication 04/19/2019 M54.16 Radiculopathy, lumbar region Beny Russo M.D. 04/19/2019 M15.0 Primary generalized (osteo)arthritis Beny Russo M.D. 04/19/2019 M54.5 Low back pain Beny Russo M.D. 03/10/2019 R60.0 Localized edema Beny Russo M.D. 02/13/2019 G89.4 Chronic pain syndrome Beny Russo M.D. 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 02/13/2019 M48.062 Spinal stenosis, lumbar region with Beny Russo M.D. neurogenic claudication 02/13/2019 M54.16 Radiculopathy, lumbar region Beny Russo M.D. Plan of Treatment 06/23/2019 - Beny Russo M.D.M48.062 Spinal stenosis, lumbar region with neurogenic afysyumajuwmK73.4 Chronic pain syndromeFollow up:RTO Fri- next week. Bring all of your pain medication with you to this appointment.Z79.891 [facility] (current) use of opiate dgbpyshmjC44.81 Restless legs nopcjrclH60.0 Primary generalized (osteo)hftsunczuK39.0 Elevated blood-pressure reading, without diagnosis of voovyvdbtytqQ01.0 Tachycardia, icpkawykgwgH28.818 Encounter for other preprocedural examination Functional Status Description No Information Available Mental Status Description No Information Available Referrals Description No Information Available
--- OUTSIDE RECORDS SUMMARY | 2019-07-20 09:59 | XMS REPORT | Continuity of Care Document ---
:1960 External Reference #:[id number] Author Name Sharon Henry Care Team Providers Name Role Phone Darion Sotomayor MD - Surgery Care Team Information Automatic Winder Operator [phone] [facility] - Surgery Care Team Information Automatic Winder Operator [phone] Manisha Morales MD - Gynecology Care Team Information Automatic Winder Operator Milad Gaines MD PhD - Rheumatology Care Team Information Automatic Winder Operator Melida Willis MD - Obstetrics & Care Team Information Automatic Winder Operator Gynecology Shivam Marinelli MD - Orthopaedic Care Team Information Automatic Winder Operator Surgery Tomas Henriquez DO - Pain Medicine Care Team Information Automatic Winder Operator [phone] Alfred Pickett MD - Internal Care Team Information Automatic Winder Operator [phone] Medicine [facility] - Care Team Information Automatic Winder Operator [phone] Gastroenterology [facility] - Care Team Information Automatic Winder Operator [phone] Orthopaedic Surgery Yoel Angulo M.D. - Rheumatology Care Team Information Automatic Winder Operator Chey Parra MD - Physical Care Team Information Automatic Winder Operator [phone] Medicine & Rehabilitation Problems Active Problems Provider [...] Medications Active Medications SIG Qnty Indications Ordering Provider Date Oxymorphone HCL ER 1 by mouth every 18tabs G89.4 Beny Russo, 2018 20mg 8hours; for M.D. Tablets ER 12HR chronic pain Oxycodone HCL 1/2 tablet by 90tabs G89.4 Beny Russo, 04/19/2019 30mg mouth up to every M.D. Tablets 3hours as needed for severe pain; rx due 06/09/19 M25.512 Gabapentin Take 1 Capsule By 90caps M54.5 Angel Jack, 04/19/2019 300mg Mouth Tonight Then D.O. Capsules One Capsule Twice A Day For 1 Day Then Take One Capsule Three Times A Day For Back And Leg Pain Leflunomide 1 tablet daily, for Unknown 10/05/2018 20mg inflammatory Tablets arthritis Ferrous Sulfate Take One Tablet By 60tabs D50.9 Beny Russo, 2017 Mouth Twice A Day On M.D. 325(65Fe) mg Tablets Empty Stomach With Oj Or Vit C. Escitalopram Oxalate Take One Tablet By 30tabs F34.1 Beny Russo, Mouth Every Day For M.D. 10mg Tablets Mood Ropinirole HCL Take One To Two 60tabs G25.81 Beny Russo, 08/08/2017 1mg Tablets By Mouth M.D. Tablets Every Evening For Restless Legs Benzonatate 1-2 by mouth three 30caps R05 Beny Russo, 01/03/2016 100mg times a day as needed M.D. Capsules for cough Voltaren Apply 1-2 Grams Up To 200units M15.0 Beny Russo, 07/14/2015 1% Gel Four Times A Day To M.D. Painful Joints On Hands Ondansetron dissolve 1 tablet by 30tabs R11.0 Beny Russo, 12/13/2014 4mg Tablets mouth every 4 hours M.D. Dispers as needed for nausea Diclofenac Sodium Take One Tablet By 180tabs M12.9 Beny Russo, 2013 75mg Mouth Two Times A Day M.D. Tablets DR as Needed For Joint Pains M15.0 Famotidine Take One Tablet By 60tabs K21.9 Valerio Boss 02/15/2013 20mg Tablets Mouth Twice A Day Clementina Renee For Acid Reflux BD Use as Directed 10units Beny Russo, 02/14/2013 3ml Monthly For M.D. Vitamin B-12 Injection Cyanocobalamin Inject 1ML Once 1units Z98.84 Beny Russo, 12/13/2012 1000mcg/ML Monthly M.D. Solution D51.9 Calcium Citrate 1 chewable 2x/day Unknown 05/07/2012 ?Dose Multivitamin & Mineral one tab po bid Unknown 10/25/2010 Tablet Meclizine HCL 1-2 po q6h prn for 50tabs 386.11 Valerio Boss 11/17/2009 12.5mg edy Renee M.D. Tablets Vit C 1 po qd 0tabs Beny Russo, 03/31/2009 500mg Tablets Clementina Medications Administered in Office Medication SIG Qnty [...] CPT Code Status Date Vaccine Lot # [id number] Given 07/31/2018 Influenza Virus Vaccine, Quadrivalent, Split, [id number] Preservative Free 46241 Given 08/08/2017 Influenza Virus Vaccine, Quadrivalent, Split, [id number] Preservative Free 24184 Given 02/10/2017 Td Immunization [id number] 80567 Given 07/05/2016 Influenza Virus Vaccine, Quadrivalent, Split, [id number] Preservative Free 58183 Given 07/04/2015 Influenza Virus Vaccine, Quadrivalent, Split, [id number] Preservative Free 71203 Given 10/10/2014 Influenza Virus Vaccine, Quadrivalent, Split, [id number] Preservative Free 33437 Given 08/10/2013 Flu, Split Virus 3Yrs [id number] 47419 Given 08/02/2011 Flu, Split Virus 3Yrs [id number] 23039 Given 11/17/2009 Flu, Split Virus 3Yrs [id number] 46012 Given 11/28/2006 Adacel or Boostrix, TDaP [id number] Vital Signs Date Vital Result Comment 06/23/2019 1:30pm BP Systolic 154 mmHg BP Diastolic 90 mmHg BP Systolic Recheck 154 mmHg BP Diastolic Recheck 94 mmHg Heart Rate 120 /min reg Weight 199.00 lb 04/19/2019 4:25pm BP Systolic 130 mmHg BP Diastolic 82 mmHg Weight 203.00 lb with sneakers Results Test Date Facility Test Result H/L Range Note Urine Drug Screen Inhouse 04/19/2019 In House [facility] Cocaine - Ua Opiates + Ua Amphetamines - Urine Methanphetamines - Urine Benzodiazepines QN [place] - Urine Oxycodone QL + Comp Metabolic Panel 03/17/2019 [facility] Sodium 141 mmol/L Normal 135-145 [phone] Potassium 3.8 mmol/L Normal 3.5-5.0 Chloride 108 [...] Non- 92.0 >60 Egfr 111.3 >60 1 Laboratory test 03/17/2019 [facility] C Reactive 2.33 mg/L Normal < 8.01 finding [phone] Protein CBC Auto Diff 03/17/2019 [facility] White Blood 5.3 Normal 3.5-10.8 [phone] Count 10^3/uL Red Blood Count 4.19 10^6/uL [...] Blood Cells % 0.0 Laboratory test 03/17/2019 [facility] Erythrocyte Sed 10 mm/Hr Normal 0-29 finding [phone] Rate 1 Because ethnic data is not always [...] dialysis) Procedures Date Code Description Status 06/23/2019 24100 Electrocardiogram Complete Completed 12/10/2018 38965446 Mammogram Completed 03/10/2011 [id number] Colonoscopy Completed Medical Devices Description No Information Available Encounters Type Date Location Provider Dx Diagnosis Office Visit 04/19/2019 Main Office Beny Russo G89.4 Chronic pain 4:00p M.D. 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 Office Visit 02/13/2019 9:00a Main Office Beny Russo G89.4 Chronic pain M.D. 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 neurogenic claudication 06/23/2019 G89.4 Chronic pain syndrome Beny Russo M.D. 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 06/23/2019 G25.81 Restless legs syndrome Beny Russo M.D. 06/23/2019 M15.0 Primary generalized (osteo)arthritis Beny Russo M.D. 06/23/2019 R03.0 Elevated blood-pressure reading, without Beny Russo M.D. diagnosis of hypertension 06/23/2019 R00.0 Tachycardia, unspecified Beny Russo M.D. 06/23/2019 Z01.818 Encounter for other preprocedural Beny Russo M.D. examination 04/19/2019 G89.4 Chronic pain syndrome Beny Russo M.D. 04/19/2019 Z79.891 intermediate (current) use of opiate analgesic Beny Russo M.D. 04/19/2019 M48.062 Spinal stenosis, lumbar region with Beny Russo M.D. neurogenic claudication 04/19/2019 M54.16 Radiculopathy, lumbar region Beny Russo M.D. 04/19/2019 M15.0 Primary generalized (osteo)arthritis Beny Russo M.D. 04/19/2019 M54.5 Low back pain Beny Russo M.D. 03/10/2019 R60.0 Localized edema Beny Russo M.D. 02/13/2019 G89.4 Chronic pain syndrome Beny Russo M.D. 02/13/2019 Z79.891 intermediate (current) use of opiate analgesic Beny Russo M.D. 02/13/2019 M48.062 Spinal stenosis, lumbar region with Beny Russo M.D. neurogenic claudication 02/13/2019 M54.16 Radiculopathy, lumbar region Beny Russo M.D. Plan of Treatment Future Appointment(s):06/28/2019 3:30 pm - Beny Russo M.D. at [facility]/23/2019 - Beny Russo M.D.M48.062 Spinal stenosis, lumbar region with neurogenic qzczgfcdbfgtG66.4 Chronic pain syndromeFollow up:RTO Fri-Tu next week. Bring all of your pain medication with you to this appointment.Z79.891 health policy nurse (current) use of opiate tmwsgczivT86.81 Restless legs etdlzxdeF91.0 Primary generalized (osteo)ojsqculjbA66.0 Elevated blood- pressure reading, without diagnosis of ibugtjjuakpjZ65.0 Tachycardia, wnctaskhwvxG71.818 Encounter for other preprocedural examination Functional Status Description No Information Available Mental Status Description No Information Available Referrals Description No Information Available
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
--- OUTSIDE RECORDS SUMMARY | 2019-07-20 09:59 | XMS REPORT | Continuity of Care Document ---
:1960 External Reference #:[id number] Author Name eBny Russo M.D. Address [address] [address] Care Team Providers Name Role Phone Darion Sotomayor MD - Surgery Care Team Information Punch Molder [phone] [facility] - Surgery Care Team Information Punch Molder Manisha Morales MD - Gynecology Care Team Information Punch Molder Milad Gaines MD PhD - Rheumatology Care Team Information Punch Molder [phone] Melida Willis MD - Obstetrics & Care Team Information Punch Molder Gynecology Shivam Marinelli MD - Orthopaedic Care Team Information Punch Molder [phone] Surgery Tomas Henriquez DO - Pain Medicine Care Team Information Punch Molder [phone] Alfred Pickett MD - Internal Care Team Information Punch Molder [phone] Medicine [place] [facility] - Care Team Information Punch Molder [phone] Gastroenterology [facility] - Care Team Information Punch Molder [phone] Orthopaedic Surgery Yoel Angulo M.D. - Rheumatology Care Team Information Punch Molder Chey Parra MD - Physical Care Team Information Punch Molder Medicine & Rehabilitation Problems Active Problems Provider [...] sensory awareness Edith Denise, ANDREA Onset: 04/12 Neurogenic claudication Beny Russo M.D. Onset: 06/23/2019 Long-term current use of opiate analgesic Beny Russo M.D. Onset: 2018 drug Degenerative joint disease involving Beny Russo M.D. Onset: 06/23/2019 multiple joints Social History Type Date Description Comments Sex [...] Oxymorphone HCL ER 1 by mouth every 16tabs G89.4 Rafaela, 04/19/2019 8hours; for chronic Beny, M.D. 20mg Tablets ER pain; rx due 07/15/19 12HR Gabapentin Take 1 Capsule By 90caps M54.5 [...] 50tabs 386.11 Valerio LoeraIvette 11/17/2009 12.5mg dizznathanael Clementina Renee Tablets Vit C 1 po qd 0tabs Beny Russo, 03/31/2009 500mg Tablets M.D. History Medications Ciprofloxacin HCL 1 twice a day x 10tabs N39.0 Beny Russo, 2018 - 250mg 5 days for uti M.D. 07/13/2019 Tablets Oxycodone HCL 1/2 tablet by 90tabs G89.4 Beny Russo, 04/19/2019 - 30mg mouth up to M.D. 06/28/2019 Tablets every 3hours as needed for severe pain; rx [...] CPT Code Status Date Vaccine Lot # [id number] Given 07/31/2018 Influenza Virus Vaccine, Quadrivalent, Split, [id number] Preservative Free 38490 Given 08/08/2017 Influenza Virus Vaccine, Quadrivalent, Split, [id number] Preservative Free 43880 Given 02/10/2017 Td Immunization [id number] 78036 Given 07/05/2016 Influenza Virus Vaccine, Quadrivalent, Split, [id number] Preservative Free 41802 Given 07/04/2015 Influenza Virus Vaccine, Quadrivalent, Split, [id number] Preservative Free 94347 Given 10/10/2014 Influenza Virus Vaccine, Quadrivalent, Split, [id number] Preservative Free 67074 Given 08/10/2013 Flu, Split Virus 3Yrs [id number] 99552 Given 08/02/2011 Flu, Split Virus 3Yrs [id number] 15660 Given 11/17/2009 Flu, Split Virus 3Yrs [id number] 69582 Given 11/28/2006 Adacel or Boostrix, TDaP [id number] Vital Signs Date Vital Result Comment 07/14/2019 10:58am BP Systolic 134 mmHg BP Diastolic 84 mmHg 07/08/2019 9:07am BP Systolic 178 mmHg BP Diastolic 84 mmHg BP Systolic Recheck 138 mmHg BP Diastolic Recheck 88 mmHg Weight 204.00 lb Results Test Date Facility Test Result H/L Range Note Ua Inhouse 07/08/2019 In House Ua Glucose - 1 Ua Bilirubin - Ua Ketones - Ua Specific [place] 1.030 Ua Blood - Ua PH 6.0 Ua Protein tr Ua Urobilinogen - Ua Nitrite - Ua Leukocytes tr Urinalysis Profile 07/02/2019 [facility] Urine Color Yellow 2 [phone] Urine Appearance Clear Urine Specific [place] 1.020 Normal 1.010-1.030 Urine pH 5.0 Normal [...] Present Abnormal Absent Urine Culture And 07/02/2019 [facility] Urine Culture SEE RESULT 3 Sensitivities [phone] BELOW CBC No Diff 07/01/2019 [facility] White Blood 6.5 10^3/uL Normal 3.5- 10 [phone] Count .8 Red Blood Count 4.25 10^6/uL [...] 11.2 fL High 7.4-10.4 Laboratory test 07/01/2019 [facility] HCG 0.73 mIU/mL 4 finding [phone] Basic Metabolic 07/01/2019 [facility] Sodium 139 mmol/L Normal 135- 145 Panel [phone] Potassium 4.5 mmol/L Normal 3.5-5.0 Chloride 104 mmol/L Normal 101-111 Co2 Carbon Dioxide 30 mmol/L Normal 22-32 Anion Gap 5 mmol/L Normal 2-11 Glucose 94 mg/dL Normal 70-100 Blood Urea Nitrogen 14 mg/dL Normal 6-24 Creatinine 0.73 mg/dL Normal 0.51-0.95 BUN/Creatinine Ratio 19.2 Normal 8-20 Calcium 9.0 mg/dL Normal 8.6-10.3 Egfr Non- 81.6 >60 Egfr 98.7 >60 5 Inr/Protime 07/01/2019 [facility] Inr 0.98 Normal 0.82-1.09 6 [phone] Laboratory test 07/01/2019 [facility] Partial 31.2 seconds Normal 26.0-38.0 finding [phone] Thrombo Time PTT Type & Screen 07/01/2019 [facility] Patient O Positive [phone] Blood Type Antibody Screen NEGATIVE THC Confirmation Urine 06/23/2019 [facility] Urine Carboxy THC 156 ng/ mL 7 [phone] Confirm Urine THC Interpretation Positive. 8 Drug Abuse 06/23/2019 [facility] Urine Alcohol Negative mg/dL Cutoff : 10 W/Confirm, Ur [phone] Urine Amphetamine Negative ng/mL 9 Urine Barbiturates Negative ng/mL 10 Urine Benzodiazepines Negative ng/mL 11 Urine Cocaine Negative ng/mL 12 Urine Methadone Negative ng/mL Negative 13 Urine Opiates Negative ng/mL Negative 14 Urine Phencyclidine Negative ng/mL Cutoff: 25 Urine Tetrahydrocannabinol Presumptive Posi <SEE NOTE> ng/mL Abnormal Cutoff : 50 15 Urine Drug Screen Inhouse 04/19/2019 In House Ua Cocaine - Ua Opiates + Ua Amphetamines - Urine Methanphetamines - Urine Benzodiazepines QN [place] - Urine Oxycodone QL + Comp Metabolic Panel 03/17/2019 [facility] Sodium 141 mmol/L Normal 135-145 [phone] Potassium 3.8 mmol/L Normal 3.5-5.0 Chloride 108 [...] Egfr Non- 92.0 >60 Egfr 111.3 >60 16 Laboratory test 03/17/2019 [facility] C Reactive 2.33 mg/L Normal < 8.01 finding [phone] Protein CBC Auto Diff 03/17/2019 [facility] White Blood 5.3 Normal 3.5-10.8 [phone] Count 10^3/uL Red Blood Count 4.19 10^6/uL [...] Blood Cells % 0.0 Laboratory test 03/17/2019 [facility] Erythrocyte Sed 10 mm/Hr Normal 0-29 finding [phone] Rate 1 void, clear, gold 2 [id number] 3 SEE RESULT BELOW Name: MATTHEW REYES : [address]: Davis Bang MD Acct: [id number] Unit: [id number] AGE: 59 Location: [facility] Re07/02/19 SEX: F Status: REG REF SPEC: [id number] RENA: 07/02/19-[address] [facility] [address]: Davis Bang MD REQ: [id number] RECD: 07/02/19 STATUS: ROD LAUREN DR: Beny Russo MD _ SOURCE: URINE SPDESC: ORDERED: Urine Culture Procedure Result Reported Site Urine Culture Final 07/04/19- 1014 ML Organism 1 ESCHERICHIA COLI [place] Count >100,000 (Many) CFU/ML 1. ESCHERICHIA COLI [...] . END OF REPORT DEPARTMENT OF PATHOLOGY, [address] [place] [address] Hao Duff M.D. Director [facility] # [id number] 4 <5.0 Negative 5.0 - 25.0 Indeterminate (Repeat testing recommended after 72 hours) >25.0 Positive Perimenopausal women can display HCG levels of up to 20 mIU/mL 5 Because ethnic data is not always [...] 5 Kidney failure <15 (or dialysis) 6 Standard intensity warfarin therapeutic range: 2.0-3.0 High intensity warfarin therapeutic range: 2.5-3.5 7 REFERENCE VALUE Cutoff: 3.0 8 ADDITIONAL INFORMATION This report is intended for use in clinical monitoring and management of patients. It is not intended for use in employment-related testing. This test was developed and its performance characteristics determined by [facility] in a manner consistent with CLIA requirements. This test has not been cleared or approved by the U.S. Food and Drug Administration. Test Performed by: [facility] [employer] [facility] [address] [place] [address] 9 REFERENCE VALUE Cutoff: 500 10 REFERENCE VALUE Cutoff: 200 11 REFERENCE VALUE Cutoff: 100 12 REFERENCE VALUE Cutoff: 150 13 REFERENCE VALUE Cutoff: 300 14 REFERENCE VALUE Cutoff: 300 15 Presumptive Positive Drug confirmation to follow. Presumptive Positive means that the screening method is positive, but the test needs to be run by a confirmatory method before being finalized. ADDITIONAL INFORMATION This report is intended for use in clinical monitoring or management of patients. It is not intended for use in employment-related testing. This test has been modified from the veterinary technician instructor's instructions. Its performance characteristics were determined by [facility] in a manner consistent with CLIA requirements. This test has not been cleared or approved by the U.S. Food and Drug Administration. Test Performed by: [facility] [employer] [facility] [employer] [address] [place] [id number] 16 Because ethnic data is not always readily [...] dialysis) Procedures Date Code Description Status 06/23/2019 32734 Electrocardiogram Complete Completed 12/10/2018 75728548 Mammogram Completed 03/10/2011 77508201 Colonoscopy Completed Medical Devices Description No Information Available Encounters Type Date Location Provider Dx Diagnosis Office Visit 07/08/2019 Main Office Pritesh Kay N39.0 Urinary tract 9:00a infection, site not specified G89.4 Chronic pain syndrome 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 Office Visit 02/13/2019 9:00a Main Office Beny Russo G89.4 Chronic pain M.D. 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 07/14/2019 G89.4 Chronic pain syndrome Beny Russo M.D. 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 07/08/2019 N39.0 Urinary tract infection, site not specified Mary Arroyo, P.A. 07/08/2019 G89.4 Chronic pain syndrome Mary Arroyo, P.A. 07/08/2019 Z79.891 snf (current) use of opiate analgesic Mary Arroyo P.A. 07/08/2019 M48.062 Spinal stenosis, lumbar region with Mary Arroyo P.A. neurogenic claudication 07/08/2019 I10 Essential (primary) hypertension Mary Arroyo P.A. 06/28/2019 G89.4 Chronic pain syndrome Beny Russo M.D. 06/28/2019 Z79.891 snf (current) use of opiate analgesic Beny Russo M.D. 06/23/2019 Z01.818 Encounter for other preprocedural Beny Russo M.D. examination 06/23/2019 M48.062 Spinal stenosis, lumbar region with Beny Russo M.D. neurogenic claudication 06/23/2019 G89.4 Chronic pain syndrome Beny Russo M.D. 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 06/23/2019 G25.81 Restless legs syndrome Beny Russo M.D. 06/23/2019 M15.0 Primary generalized (osteo)arthritis Beny Russo M.D. 06/23/2019 R03.0 Elevated blood-pressure reading, without Beny Russo M.D. diagnosis of hypertension 06/23/2019 R00.0 Tachycardia, unspecified Beny Russo M.D. 04/19/2019 G89.4 Chronic pain syndrome Beny Russo M.D. 04/19/2019 Z79.891 snf (current) use of opiate analgesic Beny Russo M.D. 04/19/2019 M48.062 Spinal stenosis, lumbar region with Beny Russo M.D. neurogenic claudication 04/19/2019 M54.16 Radiculopathy, lumbar region Beny Russo M.D. 04/19/2019 M15.0 Primary generalized (osteo)arthritis Beny Russo M.D. 04/19/2019 M54.5 Low back pain Beny Russo M.D. 03/10/2019 R60.0 Localized edema Beny Russo M.D. 02/13/2019 G89.4 Chronic pain syndrome Beny Russo M.D. 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 02/13/2019 M48.062 Spinal stenosis, lumbar region with Beny Russo M.D. neurogenic claudication 02/13/2019 M54.16 Radiculopathy, lumbar region Beny Russo M.D. 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 Comply with diet and exercise. Lose weight and watch salt in diet. Functional Status Description No Information Available Mental Status Description No Information Available Referrals Description No Information Available
[2019-07-20] MEDS ORDERED: Buffered Lidocaine 1% SYRIN* 1 ML/SYRINGE INTRADERM ONE (10:45)
[2019-07-20] MEDS ORDERED: ceFAZolin 2 GM in NS PREMIX(*) 2 GM/100 ML BAG IVPB ONE ×2 (10:45→10:52)
[2019-07-20] MEDS ORDERED: Sodium Citrate/Citric Acid* 15 ML UDC ONE (10:45)
[2019-07-20] MEDS ORDERED: fentaNYL* 50 MCG/ML 2 ML VIAL (100 MCG VIAL) ONE ×6 (13:12→18:38)
[2019-07-20] MEDS ORDERED: Midazolam* 1 MG/ML 2 ML VIAL (2 MG) ONE (13:13)
[2019-07-20] MEDS ORDERED: Bupivacaine 0.25% W/EPI* 10 ML SDV ONE (13:59)
[2019-07-20] MEDS ORDERED: Bacitracin INJECTION* 50,000 UNITS ONE (14:00)
[2019-07-20] MEDS ORDERED: Propofol* 10 MG/ML 20 ML BTL ONE ×2 (14:39→16:42)
[2019-07-20] MEDS ORDERED: Succinylcholine* 20 MG/ML 10 ML VIAL ONE (14:39)
[2019-07-20] MEDS ORDERED: Dexamethasone IV* 4 MG/ML 1 ML (4 MG) ONE (14:39)
[2019-07-20] MEDS ORDERED: Cisatracurium* 2 MG/ML MDV 5 ML ONE (14:40)
[2019-07-20] MEDS ORDERED: Esmolol* 10 MG/ML 10 ML (100 mg) ONE (14:47)
[2019-07-20] MEDS ORDERED: Morphine 10 MG/ML VIAL (1 ml) ONE (14:48)
[2019-07-20] MEDS ORDERED: Labetalol IV* 5 MG/ML 20 ML VIAL ONE (16:41)
[2019-07-20] MEDS ORDERED: Acetaminophen IV 1GM/100ML * 100 ML ONE (16:41)
[2019-07-20] MEDS ORDERED: PROCHLORPERAZINE INJ 5 MG/ML 2 ML VIAL IV PRN (16:45)
[2019-07-20] MEDS ORDERED: Naloxone* 0.4 MG/ML 1 ML VIAL IV PRN (16:45)
[2019-07-20] MEDS ORDERED: DiMENhydriNATE IV* 50 MG/ML VIAL IV PUSH PRN (16:45)
[2019-07-20] MEDS ORDERED: oxyCODONE TAB* 5 MG TAB PO PRN ×2 (18:05→18:20)
[2019-07-20] MEDS: fentaNYL* 50 MCG/ML 2 ML VIAL (100 MCG VIAL) IV PRN ×5 (18:08→18:44)
[2019-07-20] MEDS: Morphine 4 MG/ML VIAL (1 ml) 4 MG/ML VIAL IV PRN ×5 (18:11→18:32)
[2019-07-20] MEDS ORDERED: Morphine 4 MG/ML VIAL (1 ml) 4 MG/ML VIAL ONE ×3 (18:11→18:28)
[2019-07-20] MEDS ORDERED: HYDROmorphone INJ1* 1 MG/ML SYRINGE IV SLOW PU PRN ×2 (18:18→18:23)
[2019-07-20] MEDS ORDERED: Cyclobenzaprine TAB* 10 MG PO PRN (18:24)
--- NOTE | 2019-07-20 20:07 | CONSULT ---
Consult Consult: INPATIENT PAIN CONSULTATION Matthew Barrera is a 59 year old female. She has a medical history significant for Rheumatoid Arthritis and nanda Quinonez for this. She was started on Leflunomide for this. She also takes chronic opioid therapy. She is on high dose opioids. Most recently she was on Opana ER 20 mg Q8H as well as oxycodone 30 mg PO Q 6 PRN with a MDD of 3. She has a history of low back pain radiating down both legs for the past 6 months. She had an MRI of her lumbar spine which revealed a large left disc hernaition at L3/4 and a central disc protrusion at L5/S1 and had EMG/NCS showing bilateral L5 radiculopathy. She was sent to DR. Pedro for a LESI but it could not be done. She was sent to the She was admitted today for a L3/4 Microdiscectomy. I am asked to see her in consult. PAST MEDICAL HISTORY: Depression, GERD, Pulmonary Embolus. History of RLS. Allergies Allergy/AdvReac Type Severity Reaction Status Date / Time No Known Allergies Allergy Verified 07/20/19 10:41 Current Medications Cyclobenzaprine HCl (Flexeril Tab*) 10 mg PO TID PRN PRN Reason: SPASMS Hydromorphone HCl (Dilaudid Inj1s*) 0.5 mg IV SLOW PU Q2H PRN PRN Reason: PAIN - MODERATE Lactated Ringer's (Lactated Ringers 1000 Ml Bag*) 1,000 mls @ 75 mls/hr IV .per rate MARLENE Oxycodone HCl (Roxycodone Tab*) 10 mg PO Q4H PRN PRN Reason: PAIN - MODERATE SOCIAL HISTORY: Denies alcohol. No cigarette. Denies illicit drugs. Abused cocaine in the . Stopped in 1983. Lives with longtime boyfriend in 1 story house with three steps to enter. Vital Signs Temp Pulse Resp BP Pulse Ox 99.1 F 86 12 120/70 97 07/20/19 18:05 07/20/19 19:01 07/20/19 19:15 07/20/19 19:01 07/20/19 19:01 EXAM: GENERAL: No distress LUNGS: Clear HEART: reg rhythm ABDOMEN: Soft, NEUROLOGIC: Sensation appears intact. Can move all 4 extremities ASSESSMENT: 1. L3/4 Discectomy 2. Chronic Opioid Use PLAN: She will need more pain meds as she is used to quite a bit more. Opana ER not available. Will start OxyContin 40 mg BID and Oxycodone 30 mg PO q 4 PRN. I will order bowel meds and she will need her antidepressant. After discharge, trials of lowering her opioids, very slowly may be attempted. I ordered her gabapentin for ?RLS.
[2019-07-20] MEDS ORDERED: Magnesium Hydroxide LIQ* 30 ML UDC PO PRN (20:32)
[2019-07-20] MEDS: oxyCODONE SR TAB(*) 40 MG TAB.SR PO SCH (20:55)
[2019-07-20] MEDS: Docusate CAP* 100 MG PO SCH (20:55)
[2019-07-20] MEDS ORDERED: Senna TAB 8.6 mg* TAB PO SCH (21:00)
[2019-07-20] MEDS ORDERED: Gabapentin CAP(*) 300 MG PO SCH ×2 (21:00)
[2019-07-21] MEDS: oxyCODONE TAB* 5 MG TAB PO PRN ×3 (03:41→12:25)
--- NOTE | 2019-07-21 05:09 | OP ---
DATE OF OPERATION: 07/20/19 - ROOM #349 DATE OF : 60 SURGEON: Davis Bang MD. MORTGAGE PROCESSING MANAGER: Sobia Ferguson, surgical PA. The case was done with the assistance of surgical PA because of the complexity of the case. ANESTHESIA: General. PRE-OP DIAGNOSES: 1. Degenerative disk disease. 2. Lumbar stenosis. 3. Left L3-4 herniated nucleus pulposus. POST-OP DIAGNOSES: 1. Degenerative disk disease. 2. Lumbar stenosis. 3. Left L3-4 herniated nucleus pulposus. OPERATIVE PROCEDURE: The patient underwent minimally invasive left L3-4, ipsi- contralateral laminectomy with left L3-4 microdiskectomy. ESTIMATED BLOOD LOSS: 20. COMPLICATIONS: None. SUMMARY: The patient is a very pleasant 59-year-old female with complaints of back pain radiating to both lower extremities, left worse than the right, with pain centered mostly all the way down to her left knee with MRI findings consistent with lumbar stenosis and degenerative disk disease with leftward disk herniation at L3-4. The patient, after failing conservative treatment modalities, was offered the option of surgical intervention. After explaining expectations, limitations, possible complications of the procedure to the patient, with complications including, but not limited to bleeding, infection, risks of injury to adjacent structures, coma, paralysis, , need for additional procedure, anesthesia risk, stroke, blindness, cancer, instability, spinal fluid leak, loss of bladder or bowel control, postoperative hematoma, infection, deep venous thrombosis, injury to intraabdominal contents, and anesthesia risks, the patient was agreeable to proceed with surgery. Informed consent was obtained. The patient understood that his condition may not improve and in fact may get worse after surgery and that she may need to have additional procedures in the future. She also understood that operative plan may be modified according to intraoperative findings and conditions and that she may need to have additional procedures in the future. The patient understood that she may require prolonged ICU stay, tracheostomy, gastrostomy, and prolonged hospitalization or rehabilitation. DESCRIPTION OF PROCEDURE: The patient was brought to the operating room, was placed under general anesthesia by the anesthesia team. She was carefully positioned prone on the Chano frame on a Jack table and all bony prominences were meticulously padded. Her skin was prepped and draped in a standard fashion. After appropriate surgical pause and patient identification, a small incision over the left L3-4 disk space was performed with #10 surgical blade after infiltrating the skin with local anesthetic, Marcaine with epinephrine. Incision was carried down through the subcutaneous tissue with Bovie cautery and the dorsal fascia was divided with the use of #10 surgical blade. Over a series of dilators, the [employer] tubular retractor system was introduced into the field and intraoperative fluoroscopic imaging confirmed appropriate surgical level. Operative microscope was brought into the field and after removing the small soft tissue that was remaining, the left carlton- lamina of L3 and L3-4 facet was exposed. High-speed drill and Kerrison punches were used to fashion an ipsi-contralateral laminectomy at L3 and partial medial facetectomy at L3-4 in order to provide adequate decompression of the spinal canal. The ligamentum flavum was then gently elevated and dissected towards the left side with Kerrison punches. The central and lateral portion of the thecal sac and the left L4 nerve root was readily identified as well as the axilla of the L3 nerve root. The nerve roots were meticulously decompressed with Kerrison punches and performance of extensive foraminotomies. A large disk bulging under the posterior longitudinal ligament was identified as expected from the preoperative MRI imaging. The posterior longitudinal ligament was fibrosed. It was then incised with #11 surgical blade and diskectomy was performed towards the midline, extending towards the other side, and lateral to the foramen. At the end of the diskectomy, which was carried out with down pushing curette and series of pituitary rongeurs, the thecal sac as well as the nerve roots were found to free of any pressure phenomenon. After copious irrigation and meticulous hemostasis and confirmation of meticulous decompression and meticulous inspection, the tubular retractor was gently removed and the wound closed by layers. Local infiltration with Marcaine with epinephrine was used for assistance with postoperative analgesia. 0 interrupted Vicryls were used to approximate the dorsal fascia. All the subcutaneous tissue was reapproximated with inverted interrupted 2-0 Vicryl sutures. At the end of the procedure, all counts were reported to be correct. The patient remained hemodynamically stable. The skin was covered with Dermabond. The patient was then turned supine, was extubated and was transferred to Recovery in excellent condition. The case was done with the assistance of surgical PA because of the complexity of the case. [id number]/[facility] #: [id number] LULU
[2019-07-21] MEDS: Docusate CAP* 100 MG PO SCH (08:15)
[2019-07-21] MEDS ORDERED: Acetaminophen TAB* 325 MG PO PRN (08:27)
--- NOTE | 2019-07-21 08:40 | PN ---
Progress Note - Progress Note Date of Service: 07/21/19 SOAP: Subjective: [] 59 y/o female s/p L3/L4 microdiscectomy POD #1 patient did well overnight, complains of some headache, but no nausea or vomiting. She reports that her leg pain has resolved and is very happy with the outcome of her surgery. She has notice that her walking ability has improved and feels that she can now stand up with out having to lean forward. Her pain was well managed by Dr. Kirby, currently has no other issues and has been stable overnight. Objective: [] Initial Vitals Temp Pulse Resp BP Pulse Ox 98.6 F 75 18 135/85 93 07/01/19 13:49 07/01/19 13:49 07/01/19 13:49 07/01/19 13:49 07/01/19 13:49 General: patient sitting at the edge of bed, she comfortable, NAD Neuro: A&O x 3 CN II - XII grossly intact, EOM intact, pupils equal in size, upper extremity motor strength intact 5/5, lower extremity motor strength 5/5 bilaterally, sensation intact with light touch. Assessment: [] 59 y/o female post L3/L4 micordiscectomy POD#1 patient doing well, her ambulation has improved since surgery. Plan: [ 1) mitchell control as needed 2) will follow up with Dr. Kirby for discharge pain meds 3) Walk with PT 4) Discharge planning.
[2019-07-21] MEDS ORDERED: Escitalopram * 10 MG TAB PO SCH (09:00)
[2019-07-21] MEDS: oxyCODONE SR TAB(*) 40 MG TAB.SR PO SCH (09:14)
[2019-07-21] MEDS ORDERED: Calcium Carbonate CHEW TAB* 500 MG (TUMS) PO PRN (12:54)
[2019-07-21] MEDS ORDERED: HYDROmorphone INJ* 0.5 MG/0.5 ML SYRINGE IV SLOW PU PRN (13:23)
[2019-07-21 15:25] VITALS: BP 142/80
--- NOTE | 2019-07-26 12:27 | DS ---
DISCHARGE SUMMARY: DATE OF ADMISSION: 07/20/19 DATE OF DISCHARGE: 07/21/19 ATTENDING PHYSICIAN: Dr. Bang.* (DICTATED BY ALISE PARK) DIAGNOSES ON ADMISSION: 1. Degenerative disk disease. 2. Lumbar stenosis. 3. Left herniated nucleus pulposus. DIAGNOSES ON DISCHARGE: 1. Degenerative disk disease. 2. Lumbar stenosis. 3. Left L3-L4 herniated nucleus pulposus. DISPOSITION ON DISCHARGE: Good. PLACE TO DISCHARGE: Home. PROCEDURE: The patient underwent a minimally invasive L3-L4 ipsi-contralateral laminectomy with left L3-L4 microdiscectomy. HOSPITAL DISCOURSE: The patient is a very pleasant 59-year-old female with complaints of back pain radiating into both lower extremities, left worse than right with pain centered mostly all the way down to her left knee with MRI findings consistent with lumbar stenosis and degenerative disk disease with leftwards disk herniation at L3-L4. After failing conservative treatment modalities, she was offered surgical intervention. After explaining the expectation and limitations and possible complications of the procedure to the patient, the patient was consented for surgery. The patient underwent surgery, the patient tolerated procedure well, was admitted to short stay unit for 24- hour observation. At that point, Dr. Kirby was consulted for the patient for pain management. 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 The patient did well the next day, her surgical pain was well managed and the patient reported that she was able to get up and ambulate independently and was voiding without any issues. The patient was ready for discharge on the following day, was given discharge instructions, which include no heavy lifting, bending, twisting, driving, follow up with primary care within 1 week, follow up with Neurosurgery within 1 week, avoid hot tubs and pools. Also she was discharged with pain medications to help manage her pain. Was also instructed to follow up with her pain management provider as advised by Dr. Kirby to continue her regimen. The patient had no questions, was discharged home. It has been a pleasure being a part of this patient's healthcare. ALISE PARK [id number]/[facility] #: [id number] [facility]
== END 2019-07-21 15:47 | disposition home or self-care (01) ==
LOC: AA 07-20 09:54 → INTOOBSV 07-20 09:54 → SSU 07-20 19:43
PROVIDERS: ADMIT Neurological Surgery; ATTEND Neurological Surgery
DX: M51.16 Intervertebral disc disorders with radiculopathy, lumbar region (principal); M51.26 Other intervertebral disc displacement, lumbar region; M48.062 Spinal stenosis, lumbar region with neurogenic claudication; Z79.899 Other long term (current) drug therapy; G89.4 Chronic pain syndrome; Z79.891 Long term (current) use of opiate analgesic; G25.81 Restless legs syndrome; M15.0 Primary generalized (osteo)arthritis; R03.0 Elevated blood-pressure reading, without diagnosis of hypertension; R00.0 Tachycardia, unspecified; M06.9 Rheumatoid arthritis, unspecified; F32.9 Major depressive disorder, single episode, unspecified; K21.9 Gastro-esophageal reflux disease without esophagitis; Z86.711 Personal history of pulmonary embolism
CPT/HCPCS: 36415; 76000; 86850; 86900; 86901; 96361; 96374; 96375; 96376; A9270-GY; G0378; J0330; J0690; J1100; J2250; J2270; J2704; J3010

== ENCOUNTER 2023-04-26 15:30 | Observation (INO) ==
[2023-04-26] MEDS ORDERED: Morphine 4 MG/ML VIAL (1 ml) IV ONE ×3 (15:50→23:28)
[2023-04-26] MEDS ORDERED: Ondansetron 4 mg VIAL 2 MG/ML 2 ml VIAL IV ONE (15:56)
[2023-04-26] MEDS ORDERED: Ondansetron 4 mg VIAL 2 MG/ML 2 ml VIAL ONE (15:57)
[2023-04-26 16:39] LABS: INR 1.03 (0.88-1.18)
[2023-04-26 16:40] LABS: ABS Eosinophils 0.1 10^3/uL (0.0-0.5); ABS Lymphocytes 0.7 10^3/uL (1.0-4.8); ABS Monocytes 0.3 10^3/uL (0.0-0.9); ABS Neutrophils 9.2 10^3/uL (1.5-7.6); ABS Nucleated RBC 0.01 10^3/ul; Eosinophil % 1.4 %; Hematocrit 37.4 % (35-45); Hemoglobin 12.3 g/dL (11.5-14.3); Lymphocyte % 6.9 %; Mean Platelet Volume 10.5 fL (7.5-11.2); Platelet Count 203 10^3/uL (150-450); Red Blood Count 3.98 10^6/uL (3.63-4.92); Red Cell Distribution Width 14.5 % (12-17); White Blood Count 10.4 10^3/uL (3.8-11.8)
[2023-04-26 17:00] LABS: ALT 10 U/L (7-52); AST 17 U/L (13-39); Albumin/Globulin Ratio 1.5 (1-3); Alkaline Phosphatase 49 U/L (35-149); Anion Gap 6 mmol/L (2-16); Blood Urea Nitrogen 11 mg/dL (6-24); C Reactive Protein < 1.00 mg/L (<8.01); CO2 Carbon Dioxide 20 mmol/L (22-32); Chloride 114 mmol/L (101-111); Creatine Kinase 36 U/L (10-223); Creatinine, Serum 0.55 mg/dL (0.51-0.95); Glucose 172 mg/dL (70-100); Sodium 140 mmol/L (135-145); eGFR CKD-EPI 103.6 (>60)
[2023-04-26] MEDS ORDERED: Potassium EFFERVES 25 meq TAB PO ONE (17:07)
[2023-04-26] MEDS ORDERED: Iohexol 350 (CONTRAST) 500 ML MDV IV ONE (18:25)
[2023-04-26] MEDS ORDERED: CALCIUM GLUCONATE 1GM/50ML NS 1 GM/50 ML BAG IV ONE (23:25)
[2023-04-26] MEDS ORDERED: Calcium Gluconate 2 GM in NS 0.9% 100 ml BAG 100 ML IV ONE (23:26)
[2023-04-27] MEDS ORDERED: Potassium Chloride LIQUID 20 MEQ/15 ML LIQUID PO ONE (00:15)
[2023-04-27] MEDS ORDERED: Ondansetron 4 mg VIAL 2 MG/ML 2 ml VIAL IV PRN (00:15)
[2023-04-27 00:25] LABS: Magnesium 1.3 mg/dL (1.9-2.7)
[2023-04-27 00:31] LABS: Urine Appearance Cloudy; Urine Bilirubin Negative (Negative); Urine Blood Negative (Negative); Urine Color Yellow; Urine Glucose 1+(50 mg/dL) (Negative); Urine Ketones Trace (Negative); Urine Nitrite Negative (Negative); Urine Protein Negative (Negative); Urine Specific Gravity 1.034 (1.002-1.030); Urine Urobilinogen Negative (Negative)
[2023-04-27] MEDS ORDERED: Magnesium Sulf 4 GM/100 ML IV 4,000 MG/100 ML BAG IVPB ONE (00:32)
[2023-04-27 00:34] LABS: Urine Bacteria Absent (Absent); Urine Red Blood Cell Trace(0-2/hpf) (Absent); Urine Squamous Epithelial Cell Present (Absent); Urine White Blood Cell 1+(6-10/hpf) (Absent)
[2023-04-27 01:00] LABS: Calcium (PTH Intact) 8.8 mg/dL (8.6-10.3)
[2023-04-27 06:20] LABS: ABS Lymphocytes 0.7 10^3/uL (1.0-4.8); ABS Monocytes 0.1 10^3/uL (0.0-0.9); ABS Neutrophils 10.4 10^3/uL (1.5-7.6); ABS Nucleated RBC 0.01 10^3/ul; Eosinophil % 0.1 %; Hematocrit 40.7 % (35-45); Hemoglobin 13.7 g/dL (11.5-14.3); Mean Corpuscular Hemoglobin 31.6 pg (27-33); Mean Corpuscular Hgb Conc 33.5 g/dL (31-36); Mean Corpuscular Volume 94.4 fL (80-97); Mean Platelet Volume 10.9 fL (7.5-11.2); Nucleated Red Blood Cells % 0.1 /100 WBC (0.0-0.4); Platelet Count 258 10^3/uL (150-450); Red Blood Count 4.31 10^6/uL (3.63-4.92); Red Cell Distribution Width 14.8 % (12-17); White Blood Count 11.2 10^3/uL (3.8-11.8)
[2023-04-27 06:44] LABS: ALT 15 U/L (7-52); Albumin 4.3 g/dL (3.2-5.2); Albumin/Globulin Ratio 1.4 (1-3); Alkaline Phosphatase 70 U/L (35-149); Blood Urea Nitrogen 10 mg/dL (6-24); CO2 Carbon Dioxide 25 mmol/L (22-32); Calcium 9.6 mg/dL (8.6-10.3); Chloride 105 mmol/L (101-111); Creatinine, Serum 0.51 mg/dL (0.51-0.95); Glucose 161 mg/dL (70-100); Magnesium 2.9 mg/dL (1.9-2.7); Sodium 137 mmol/L (135-145); Total Protein 7.3 g/dL (6.4-8.9); eGFR CKD-EPI 105.5 (>60)
[2023-04-27 06:47] LABS: Anion Gap 7 mmol/L (2-16)
[2023-04-27 07:24] LABS: Potassium Redraw 3.6 mmol/L (3.5-5.0)
[2023-04-27] MEDS ORDERED: Al Hydrox/Mg Hydrox/Simet LIQ 30 ML UDC PO ONE (08:22)
[2023-04-27] MEDS ORDERED: Albuterol HFA INHALER 8 gm MDI INH PRN (08:23)
[2023-04-27] MEDS ORDERED: Multivitamins/Minerals TAB PO SCH (09:00)
[2023-04-27] MEDS ORDERED: HYDROXYCHLOROQUINE PO SCH (09:00)
[2023-04-27] MEDS ORDERED: Enoxaparin 40 MG/0.4 ML SYR SUBCUT SCH (09:00)
[2023-04-27] MEDS ORDERED: LEFLUNOMIDE 20 MG PO SCH (09:00)
[2023-04-27] MEDS ORDERED: Buprenorp/Nalox 8-2 MG FILM SL SCH (09:00)
[2023-04-27] MEDS ORDERED: Calcium Carb (TUMS) 500 mg CHEW TAB PO SCH (09:00)
[2023-04-27] MEDS ORDERED: Leflunomide 10 mg TAB (NF) PO SCH (11:00)
[2023-04-27 14:24] VITALS: BP 96/72
== END 2023-04-27 17:50 | disposition short-term general hospital (02) ==
LOC: EDHOLD 15:30 → ED 15:30 → SUATTDRO 04-27 00:15 → MEDTELE 04-27 06:22
PROVIDERS: ADMIT Internal Medicine; ATTEND Family Medicine

== ENCOUNTER 2024-03-29 10:34 | Observation (INO) ==
[~2024-03-29 10:34] MED LIST changes: -Buffered Lidocaine 1% SYRIN* 1 ML/SYRINGE INTRADERM ONE; +Chlorhexidine MOUTHWASH 0.12% 15 ML UDC ONE; -Lactated Ringers 1000 ML Bag* 1,000 ML IV SCH; +Midazolam 2 mg/2 ml VIAL 1 mg/ml 2 ml VIAL (2 mg) ONE; +Naloxone 0.4 mg VIAL 0.4 mg/ml 1 ml VIAL IV PRN; -Sodium Citrate/Citric Acid* 15 ML UDC PO ONE; +ceFAZolin 2 GM in NS PREMIX 2 GM/100 ML BAG IVPB ONE; +fentaNYL 100 mcg/2 ml 50 MCG/ML VIAL ONE
[2024-03-29] MEDS ORDERED: Chlorhexidine MOUTHWASH 0.12% 15 ML UDC ONE (10:50)
[2024-03-29 11:49] LABS: Rapid COVID-19 Molecular Undetected (Undetected)
[2024-03-29] MEDS ORDERED: Midazolam 2 mg/2 ml VIAL 1 mg/ml 2 ml VIAL (2 mg) ONE (13:11)
[2024-03-29] MEDS ORDERED: Propofol 10 MG/ML 20 ML BTL ONE (13:17)
[2024-03-29] MEDS ORDERED: Ondansetron 4 mg VIAL 2 MG/ML 2 ml VIAL ONE (13:17)
[2024-03-29] MEDS ORDERED: Dexamethasone IV 4 MG/ML VIAL 1 ml VIAL ONE (13:17)
[2024-03-29] MEDS ORDERED: Rocuronium 50 mg VIAL 10 mg/ml 5 ml VIAL (50 mg) ONE ×2 (13:19→15:05)
[2024-03-29] MEDS ORDERED: fentaNYL 100 mcg/2 ml 50 MCG/ML VIAL ONE ×4 (13:20→17:31)
[2024-03-29] MEDS ORDERED: Lidocaine 2% PF 5 ML VIAL ONE (13:21)
[2024-03-29] MEDS ORDERED: Thrombin 5,000 UNITS 1 APPLIC KIT - topical use - TOPICAL ONE (13:56)
[2024-03-29] MEDS ORDERED: Lidocaine 1% w EPI 1:100,000 MDV 20 ML VIAL ONE (13:56)
[2024-03-29] MEDS ORDERED: ceFAZolin VIAL VIAL ONE (13:56)
[2024-03-29] MEDS ORDERED: Gelfoam Sponge SIZE 100 SPONGE ONE (13:57)
[2024-03-29] MEDS ORDERED: ceFAZolin 2 GM in NS PREMIX 2 GM/100 ML BAG IVPB ONE (14:25)
[2024-03-29] MEDS ORDERED: HYDROmorphone 0.5 MG/0.5 ML SYRINGE ONE ×4 (14:50→16:26)
[2024-03-29] MEDS ORDERED: Acetaminophen IV 1 GM/100ML 1,000 MG/100 ML BAG IV ONE (15:05)
[2024-03-29] MEDS ORDERED: Levalbuterol HFA INHALER MDI ONE (15:47)
[2024-03-29] MEDS ORDERED: KETAMINE HCL 10 MG/ML 20 ml VIAL (200 MG) ONE (16:06)
[2024-03-29] MEDS ORDERED: HYDROcodone/ACETAMIN 5/325 mg TAB PO PRN (16:29)
[2024-03-29] MEDS ORDERED: Benzocaine/Menthol LOZ MT PRN (16:29)
[2024-03-29] MEDS ORDERED: Phenol 1.4% Throat Spray BTL MT PRN (16:29)
[2024-03-29] MEDS ORDERED: Morphine 2 MG/ML SYRINGE IV PRN (16:29)
[2024-03-29] MEDS ORDERED: Calcium Carb (TUMS) 500 mg CHEW TAB PO PRN (16:29)
[2024-03-29] MEDS ORDERED: Senna TAB 8.6 mg TAB PO PRN (16:29)
[2024-03-29] MEDS ORDERED: Dextran 70/Hypromellose Tears Eye Drops 15 ml BTL (for Artificials Tears) BOTH EYES PRN (16:29)
[2024-03-29] MEDS ORDERED: Albuterol HFA INHALER 8 gm MDI INH PRN (16:32)
[2024-03-29] MEDS: fentaNYL 100 mcg/2 ml 50 MCG/ML VIAL IV PRN (17:32)
[2024-03-29] MEDS ORDERED: Ondansetron ODT 4 mg TAB 4 MG TAB PO PRN (19:12)
[2024-03-29] MEDS: Lactated Ringers 1000 ml BAG 1,000 ML IV SCH ×2 (20:31→20:55)
[2024-03-29] MEDS: Buffered Lidocaine 1% SYRIN 1 ml INTRADERM ONE (20:31)
[2024-03-29] MEDS: HYDROcodone/ACETAMIN 5/325 mg TAB PO PRN (20:50)
[2024-03-29] MEDS: Buprenorp/Nalox 8-2 MG FILM SL SCH (20:51)
[2024-03-30 05:41] LABS: ABS Lymphocytes 0.9 10^3/uL (1.0-4.8); ABS Monocytes 0.3 10^3/uL (0.0-0.9); ABS Neutrophils 5.9 10^3/uL (1.5-7.6); ABS Nucleated RBC 0.01 10^3/ul; Hematocrit 37.5 % (35-45); Hemoglobin 12.3 g/dL (11.5-14.3); Lymphocyte % 12.1 %; Mean Corpuscular Hemoglobin 31.6 pg (27-33); Mean Corpuscular Hgb Conc 32.9 g/dL (31-36); Mean Platelet Volume 10.7 fL (7.5-11.2); Nucleated Red Blood Cells % 0.1 %/100WBC (0.0-0.8); Platelet Count 167 10^3/uL (150-450); Red Cell Distribution Width 14.2 % (12-17); White Blood Count 7.1 10^3/uL (3.8-11.8)
[2024-03-30 06:19] LABS: Calcium 8.7 mg/dL (8.6-10.3); Creatinine, Serum 0.67 mg/dL (0.51-0.95); Magnesium 1.8 mg/dL (1.9-2.7); Potassium 4.4 mmol/L (3.5-5.0); eGFR CKD-EPI 98.1 (>60)
[2024-03-30] MEDS: CMCS:Leflunomide 10 mg TAB (NF) PO SCH (07:58)
[2024-03-30 10:26] VITALS: BP 129/64
== END 2024-03-30 11:00 | disposition home or self-care (01) ==
LOC: OR 10:34 → SSU 10:34
PROVIDERS: ADMIT Neurological Surgery; ATTEND Neurological Surgery

== ENCOUNTER 2024-04-13 17:27 | Inpatient (IN) ==
[2024-04-13] MEDS: Lactated Ringers SEPSIS* BAG 1,850 ML IV ONE (18:52)
[2024-04-13 18:55] LABS: ABS Lymphocytes 0.6 10^3/uL (1.0-4.8); ABS Monocytes 0.3 10^3/uL (0.0-0.9); ABS Neutrophils 16.7 10^3/uL (1.5-7.6); Hematocrit 38.2 % (35-45); Hemoglobin 12.8 g/dL (11.5-14.3); Lymphocyte % 3.6 %; Mean Corpuscular Hemoglobin 31.1 pg (27-33); Mean Corpuscular Hgb Conc 33.4 g/dL (31-36); Mean Corpuscular Volume 93.3 fL (80-97); Mean Platelet Volume 8.4 fL (7.5-11.2); Platelet Count 200 10^3/uL (150-450); Red Cell Distribution Width 14.7 % (12-17); White Blood Count 17.7 10^3/uL (3.8-11.8)
[2024-04-13 19:03] LABS: Activated Partial Thrombo Time 30.6 seconds (26.0-38.0); INR 1.15 (0.83-1.13)
[2024-04-13 19:44] LABS: Urine Appearance Clear; Urine Bilirubin 1+ (Negative); Urine Blood Negative (Negative); Urine Color Dark-Yellow; Urine Glucose Negative (Negative); Urine Ketones 2+ (Negative); Urine Nitrite Negative (Negative); Urine Protein 1+ (>=30 mg/dL) (Negative); Urine Specific Gravity 1.021 (1.002-1.030); Urine Urobilinogen 2+ (Negative); Urine pH 5.5 (5.0-8.0)
[2024-04-13 19:51] LABS: Urine Bacteria Absent /HPF (Absent); Urine Red Blood Cell Trace(0-2/hpf) /HPF (0-Trace); Urine Squamous Epithelial Cell Present /HPF (Absent); Urine White Blood Cell Trace(0-5/hpf) /HPF (0-Trace)
[2024-04-13] MEDS: Vancomycin 1,500 MG in NS 0.9% 250 ml 250 ML IVPB ONE (19:56)
[2024-04-13 20:09] LABS: Albumin 2.7 g/dL (3.2-5.2); Albumin/Globulin Ratio 1.1 (1-3); C Reactive Protein 310.13 mg/L (<8.01); Calcium 7.9 mg/dL (8.6-10.3); Creatinine, Serum 0.61 mg/dL (0.51-0.95); Globulin 2.4 g/dL (2-4); Potassium 4.3 mmol/L (3.5-5.0); Total Bilirubin 1.5 mg/dL (0.2-1.0); Total Protein 5.1 g/dL (6.4-8.9); eGFR CKD-EPI 100.4 (>60)
[2024-04-13 20:22] LABS: High Sensitivity Troponin 1 Hr 9 pg/mL (<15)
[2024-04-13] MEDS ORDERED: Morphine 2 MG/ML SYRINGE IV PRN ×2 (21:06→23:11)
[2024-04-13] MEDS: Acetaminophen IV 1 GM/100ML 1,000 MG/100 ML BAG IV PRN (21:51)
[2024-04-13] MEDS ORDERED: Vancomycin 1,000 MG in NS 0.9% 250 ml 250 ML IVPB SCH (22:24)
[2024-04-13] MEDS ORDERED: Vancomycin per Pharmacy 1 EA NOTE FOLLOW UP PRN (22:44)
[2024-04-13] MEDS: Morphine 2 MG/ML SYRINGE IV PRN (23:44)
[2024-04-13] MEDS ORDERED: Albuterol HFA INHALER 8 gm MDI INH PRN (23:48)
[2024-04-13] MEDS ORDERED: Ondansetron ODT 4 mg TAB 4 MG TAB PO PRN (23:48)
[2024-04-13] MEDS: cefTRIAXone 1 gm/50 mL D5W 1 GM/50 ML BAG IV SCH (23:50)
[2024-04-14] MEDS: Lactated Ringers 1000 ml BAG 1,000 ML IV SCH (00:45)
[2024-04-14] MEDS: HYDROmorphone 1 MG/1 ML SYRINGE IV SLOW PU PRN ×2 (02:56→15:34)
[2024-04-14] MEDS ORDERED: Lorazepam PYXIS KEY PRN (04:02)
[2024-04-14] MEDS ORDERED: LORazepam 2 mg VIAL 1 ml IV PUSH ONE (04:02)
[2024-04-14 04:12] LABS: Activated Partial Thrombo Time 28.6 seconds (26.0-38.0); Creatinine, Serum 0.54 mg/dL (0.51-0.95); INR 1.22 (0.83-1.13); eGFR CKD-EPI 103.4 (>60)
[2024-04-14] MEDS: LORazepam 2 MG/ML 1 mL Syringe IV ONE (04:23)
[2024-04-14 05:38] LABS: ABS Lymphocytes 1.1 10^3/uL (1.0-4.8); ABS Monocytes 0.5 10^3/uL (0.0-0.9); ABS Neutrophils 13.5 10^3/uL (1.5-7.6); ABS Nucleated RBC 0.01 10^3/ul; Hematocrit 30.3 % (35-45); Hemoglobin 10.2 g/dL (11.5-14.3); Lymphocyte % 7.2 %; Mean Corpuscular Hemoglobin 31.4 pg (27-33); Mean Corpuscular Hgb Conc 33.8 g/dL (31-36); Mean Corpuscular Volume 92.9 fL (80-97); Mean Platelet Volume 8.2 fL (7.5-11.2); Platelet Count 176 10^3/uL (150-450); Red Blood Count 3.26 10^6/uL (3.63-4.92); Red Cell Distribution Width 14.6 % (12-17); White Blood Count 15.1 10^3/uL (3.8-11.8)
[2024-04-14 07:50] LABS: Calcium 7.6 mg/dL (8.6-10.3); Creatinine, Serum 0.44 mg/dL (0.51-0.95); Magnesium 1.8 mg/dL (1.9-2.7); eGFR CKD-EPI 108.6 (>60)
[2024-04-14] MEDS: Vancomycin 1,250 MG in NS 0.9% 250 ml 250 ML IVPB SCH (09:41)
[2024-04-14] MEDS: Heparin 5000 UNITS/ML 1 mL VIAL SUBCUT SCH (10:23)
[2024-04-14] MEDS: Buprenorp/Nalox 8-2 MG FILM SL SCH (11:10)
[2024-04-14] MEDS: cefTRIAXone 1 gm/50 mL D5W 1 GM/50 ML BAG IV SCH (23:44)
[2024-04-15 08:20] LABS: Hematocrit 31.3 % (35-45); Hemoglobin 10.5 g/dL (11.5-14.3); Mean Corpuscular Hemoglobin 31.3 pg (27-33); Mean Corpuscular Hgb Conc 33.4 g/dL (31-36); Mean Corpuscular Volume 93.9 fL (80-97); Mean Platelet Volume 7.5 fL (7.5-11.2); Platelet Count 195 10^3/uL (150-450); Red Blood Count 3.34 10^6/uL (3.63-4.92); Red Cell Distribution Width 14.6 % (12-17); White Blood Count 13.5 10^3/uL (3.8-11.8)
[2024-04-15 08:46] LABS: Vancomycin Trough 7.9 mcg/mL
[2024-04-15 08:59] LABS: Magnesium 1.7 mg/dL (1.9-2.7)
[2024-04-15] MEDS: Vancomycin Trough Check NOTE FOLLOW UP ONE (10:02)
[2024-04-15] MEDS: Vancomycin 1,250 MG in NS 0.9% 250 ml 250 ML IVPB SCH (10:04)
[2024-04-15] MEDS: Oxacillin 2 GM in NS 0.9% 100 ml BAG 100 ML IVPB SCH (12:56)
[2024-04-15] MEDS: Magnesium Sulfate 2 gm BAG 2 GM/50 ML BAG IVPB ONE (13:56)
[2024-04-15] MEDS ORDERED: Sulfur Hexaflouride MICROSPHR 25 MG VIAL ONE (15:04)
[2024-04-15] MEDS: Magnesium Sulfate IV 1GM/100ML 1 GM/100 ML BAG IV ONE (16:18)
[2024-04-15] MEDS: Sulfur Hexaflouride MICROSPHR 25 MG VIAL IV ONE (17:14)
[2024-04-15] MEDS: Iohexol 350 (CONTRAST) 500 ML MDV IV ONE (18:05)
[2024-04-16 06:49] LABS: Hematocrit 27.9 % (35-45); Hemoglobin 9.4 g/dL (11.5-14.3); Mean Corpuscular Hemoglobin 31.8 pg (27-33); Mean Corpuscular Hgb Conc 33.8 g/dL (31-36); Mean Platelet Volume 7.1 fL (7.5-11.2); Platelet Count 180 10^3/uL (150-450); Red Blood Count 2.97 10^6/uL (3.63-4.92); Red Cell Distribution Width 14.4 % (12-17); White Blood Count 11.5 10^3/uL (3.8-11.8)
[2024-04-16] MEDS: Magnesium Sulf 4 GM/100 ML IV 4,000 MG/100 ML BAG IVPB ONE (08:34)
[2024-04-17 05:38] LABS: Hemoglobin 9.5 g/dL (11.5-14.3); Mean Corpuscular Hemoglobin 31.8 pg (27-33); Mean Corpuscular Volume 93.7 fL (80-97); Mean Platelet Volume 7.1 fL (7.5-11.2); Platelet Count 173 10^3/uL (150-450); Red Blood Count 2.98 10^6/uL (3.63-4.92); Red Cell Distribution Width 14.4 % (12-17); White Blood Count 8.7 10^3/uL (3.8-11.8)
[2024-04-17 06:20] LABS: Calcium 7.1 mg/dL (8.6-10.3); Creatinine, Serum 0.44 mg/dL (0.51-0.95); Magnesium 2.1 mg/dL (1.9-2.7); Potassium 3.7 mmol/L (3.5-5.0); eGFR CKD-EPI 108.6 (>60)
[2024-04-17] MEDS: Potassium Chlor 20 meq TAB.ER PO ONE ×2 (09:55→14:13)
[2024-04-17] MEDS: Calcium (OSCAL) 500 mg TAB PO SCH (11:16)
[2024-04-17 11:19] LABS: Albumin 2.1 g/dL (3.2-5.2); Albumin/Globulin Ratio 1.1 (1-3); Direct Bilirubin 0.3 mg/dL (0.03-0.18); Globulin 1.9 g/dL (2-4); Indirect Bilirubin 0.3 mg/dL (0.3-1.0); Total Bilirubin 0.6 mg/dL (0.2-1.0)
[2024-04-17] MEDS: HYDROmorphone 1 MG/1 ML SYRINGE IV ONE (17:18)
[2024-04-17] MEDS: Iohexol 300 (CONTRAST) 10 ML SDV IV ONE (17:39)
[2024-04-18 06:55] LABS: ABS Eosinophils 0.1 10^3/uL (0.0-0.5); ABS Lymphocytes 1.6 10^3/uL (1.0-4.8); ABS Monocytes 0.8 10^3/uL (0.0-0.9); ABS Neutrophils 7.9 10^3/uL (1.5-7.6); ABS Nucleated RBC 0.02 10^3/ul; Eosinophil % 0.8 %; Hematocrit 30.6 % (35-45); Hemoglobin 10.2 g/dL (11.5-14.3); Mean Corpuscular Hemoglobin 31.5 pg (27-33); Mean Corpuscular Hgb Conc 33.4 g/dL (31-36); Mean Corpuscular Volume 94.2 fL (80-97); Mean Platelet Volume 7.5 fL (7.5-11.2); Nucleated Red Blood Cells % 0.1 %/100WBC (0.0-0.8); Platelet Count 268 10^3/uL (150-450); Red Blood Count 3.25 10^6/uL (3.63-4.92); Red Cell Distribution Width 14.5 % (12-17); White Blood Count 10.4 10^3/uL (3.8-11.8)
[2024-04-18 08:10] LABS: C Reactive Protein 102.23 mg/L (<8.01); Calcium 7.4 mg/dL (8.6-10.3); Creatinine, Serum 0.44 mg/dL (0.51-0.95); Potassium 4.2 mmol/L (3.5-5.0); eGFR CKD-EPI 108.6 (>60)
[2024-04-19 06:19] LABS: Mean Corpuscular Hemoglobin 31.2 pg (27-33); Mean Corpuscular Hgb Conc 33.4 g/dL (31-36); Mean Corpuscular Volume 93.6 fL (80-97); Mean Platelet Volume 7.5 fL (7.5-11.2); Platelet Count 293 10^3/uL (150-450); Red Blood Count 2.88 10^6/uL (3.63-4.92); Red Cell Distribution Width 14.5 % (12-17); White Blood Count 10.9 10^3/uL (3.8-11.8)
[2024-04-19] MEDS: metroNIDAZOLE IV 250 MG/50ML 50 ML IVPB SCH (14:06)
[2024-04-19] MEDS: metroNIDAZOLE IV 500 MG/100ML 100 ML IVPB SCH (14:56)
[2024-04-19] MEDS: HYDROcodone/ACETAMIN 5/325 mg TAB PO ONE (16:16)
[2024-04-19] MEDS: HYDROcodone/ACETAMIN 5/325 mg TAB PO SCH (20:50)
[2024-04-21] MEDS ORDERED: HYDROcodone/ACETAMIN 5/325 mg TAB PO ONE (13:00)
[2024-04-21] MEDS: HYDROcodone/ACET. 7.5/325 LIQ 15 ML UDC PO ONE (13:26)
[2024-04-21 14:04] VITALS: BP 153/93
== END 2024-04-21 15:18 | disposition home or self-care (01) | DRG 862 ==
LOC: ED 17:27 → EDHOLD 17:27 → SUATTDRO 21:04 → MED 04-14 21:24
PROVIDERS: ADMIT Internal Medicine; ATTEND Internal Medicine

== ENCOUNTER 2024-04-21 21:11 | Observation (INO) ==
[2024-04-21] MEDS ORDERED: Lorazepam PYXIS KEY PRN (21:46)
[2024-04-21 21:47] LABS: ABS Basophils 0.1 10^3/uL (0.0-0.1); ABS Lymphocytes 1.8 10^3/uL (1.0-4.8); ABS Monocytes 1.3 10^3/uL (0.0-0.9); ABS Neutrophils 8.4 10^3/uL (1.5-7.6); ABS Nucleated RBC 0.02 10^3/ul; Eosinophil % 0.1 %; Hematocrit 29.1 % (35-45); Hemoglobin 9.6 g/dL (11.5-14.3); Lymphocyte % 15.6 %; Mean Corpuscular Hemoglobin 30.8 pg (27-33); Mean Corpuscular Hgb Conc 32.9 g/dL (31-36); Mean Corpuscular Volume 93.5 fL (80-97); Mean Platelet Volume 8.2 fL (7.5-11.2); Nucleated Red Blood Cells % 0.2 %/100WBC (0.0-0.8); Platelet Count 571 10^3/uL (150-450); Red Blood Count 3.11 10^6/uL (3.63-4.92); Red Cell Distribution Width 14.7 % (12-17); White Blood Count 11.6 10^3/uL (3.8-11.8)
[2024-04-21] MEDS ORDERED: LORazepam 2 MG/ML 1 mL Syringe ONE (21:49)
[2024-04-21] MEDS: LORazepam 2 MG/ML 1 mL Syringe IV ONE ×2 (22:00→22:30)
[2024-04-21 22:01] LABS: Activated Partial Thrombo Time 32.5 seconds (26.0-38.0); INR 1.17 (0.83-1.13)
[2024-04-21] MEDS: Oxacillin 2 GM in NS 0.9% 100 ml BAG 100 ML IVPB ONE (22:08)
[2024-04-21] MEDS: Lactated Ringers 1000 ml BAG 1,000 ML IV ONE (22:09)
[2024-04-21] MEDS: LORazepam 2 mg VIAL 1 ml IV PUSH ONE (22:28)
[2024-04-21 22:40] LABS: Albumin 2.6 g/dL (3.2-5.2); Albumin/Globulin Ratio 0.9 (1-3); C Reactive Protein 88.58 mg/L (<8.01); Calcium 7.9 mg/dL (8.6-10.3); Creatinine, Serum 0.57 mg/dL (0.51-0.95); Globulin 2.8 g/dL (2-4); Potassium 3.7 mmol/L (3.5-5.0); Total Bilirubin 0.6 mg/dL (0.2-1.0); Total Protein 5.4 g/dL (6.4-8.9)
[2024-04-21 23:30] LABS: High Sensitivity Troponin 1 Hr 6 pg/mL (<15)
[2024-04-22] MEDS ORDERED: Albuterol HFA INHALER 8 gm MDI INH PRN (00:23)
[2024-04-22 00:33] LABS: Urine Appearance Clear; Urine Bilirubin Negative (Negative); Urine Blood Negative (Negative); Urine Color Yellow; Urine Glucose Negative (Negative); Urine Ketones Trace (Negative); Urine Nitrite Negative (Negative); Urine Protein Negative (Negative); Urine Specific Gravity 1.016 (1.002-1.030); Urine Urobilinogen Negative (Negative); Urine pH 5.5 (5.0-8.0)
[2024-04-22] MEDS ORDERED: Ondansetron ODT 4 mg TAB 4 MG TAB PO PRN (00:40)
[2024-04-22] MEDS: Oxacillin 2 GM in NS 0.9% 100 ML BAG IVPB SCH (02:57)
[2024-04-22] MEDS: Enoxaparin 40 MG/0.4 ML SYR SUBCUT SCH (03:01)
[2024-04-22 05:45] LABS: ABS Basophils 0.1 10^3/uL (0.0-0.1); ABS Lymphocytes 1.2 10^3/uL (1.0-4.8); ABS Monocytes 0.9 10^3/uL (0.0-0.9); ABS Neutrophils 6.6 10^3/uL (1.5-7.6); ABS Nucleated RBC 0.01 10^3/ul; Eosinophil % 0.3 %; Hematocrit 24.3 % (35-45); Hemoglobin 8.4 g/dL (11.5-14.3); Lymphocyte % 13.9 %; Mean Corpuscular Hemoglobin 32.4 pg (27-33); Mean Corpuscular Hgb Conc 34.4 g/dL (31-36); Mean Corpuscular Volume 94.1 fL (80-97); Mean Platelet Volume 7.8 fL (7.5-11.2); Nucleated Red Blood Cells % 0.1 %/100WBC (0.0-0.8); Platelet Count 440 10^3/uL (150-450); Red Blood Count 2.58 10^6/uL (3.63-4.92); Red Cell Distribution Width 14.3 % (12-17); White Blood Count 8.9 10^3/uL (3.8-11.8)
[2024-04-22 06:05] LABS: Albumin 2.1 g/dL (3.2-5.2); Calcium 7.4 mg/dL (8.6-10.3); Creatinine, Serum 0.36 mg/dL (0.51-0.95); Globulin 2.2 g/dL (2-4); Magnesium 1.8 mg/dL (1.9-2.7); Potassium 3.5 mmol/L (3.5-5.0); Total Bilirubin 0.5 mg/dL (0.2-1.0); Total Protein 4.3 g/dL (6.4-8.9)
[2024-04-22 08:08] LABS: Urine Benzodiazepine Screen None Detected (None Detect); Urine Cannabinoids Screen Presumptive Positive (None Detect); Urine Opiates Screen Presumptive Positive (None Detect)
[2024-04-22] MEDS: Magnesium Sulfate 2 gm BAG 2 GM/50 ML BAG IVPB ONE (08:16)
[2024-04-22] MEDS: Potassium Chlor 20 meq TAB.ER PO ONE (08:36)
[2024-04-22] MEDS: Buprenorp/Nalox 8-2 MG FILM SL SCH (08:37)
[2024-04-22 08:57] LABS: Urine Benzodiazepine Screen None Detected (None Detect); Urine Buprenorphine Screen Presumptive Positive (None Detect); Urine Cannabinoids Screen Presumptive Positive (None Detect); Urine Fentanyl Screen None Detected (None Detect); Urine Hydrocodone Screen None Detected (None Detect); Urine Opiates Screen Presumptive Positive (None Detect)
[2024-04-22 12:55] LABS: Urine Appearance Clear; Urine Bilirubin Negative (Negative); Urine Blood Negative (Negative); Urine Color Yellow; Urine Glucose Negative (Negative); Urine Ketones Trace (Negative); Urine Nitrite Negative (Negative); Urine Protein Negative (Negative); Urine Specific Gravity 1.019 (1.002-1.030); Urine Urobilinogen Negative (Negative); Urine pH 6.5 (5.0-8.0)
[2024-04-22] MEDS: Acetaminophen IV 1 GM/100ML 1,000 MG/100 ML BAG IV PRN (20:57)
[2024-04-23 06:05] LABS: Hematocrit 26.3 % (35-45); Hemoglobin 8.9 g/dL (11.5-14.3); Mean Corpuscular Hemoglobin 31.9 pg (27-33); Mean Corpuscular Hgb Conc 33.7 g/dL (31-36); Mean Corpuscular Volume 94.5 fL (80-97); Mean Platelet Volume 7.6 fL (7.5-11.2); Platelet Count 494 10^3/uL (150-450); Red Blood Count 2.78 10^6/uL (3.63-4.92); Red Cell Distribution Width 15.1 % (12-17); White Blood Count 10.1 10^3/uL (3.8-11.8)
[2024-04-23 06:45] LABS: Calcium 7.5 mg/dL (8.6-10.3); Creatinine, Serum 0.37 mg/dL (0.51-0.95); Magnesium 1.9 mg/dL (1.9-2.7); Potassium 3.7 mmol/L (3.5-5.0); eGFR CKD-EPI 113.3 (>60)
[2024-04-23] MEDS: Potassium Chlor 20 meq TAB.ER PO ONE (09:54)
[2024-04-23] MEDS: Magnesium Sulfate 2 gm BAG 2 GM/50 ML BAG IVPB ONE (10:42)
[2024-04-23] MEDS: HYDROcodone/ACETAMIN 5/325 mg TAB PO SCH (10:59)
[2024-04-25 01:12] LABS: Calcium 7.3 mg/dL (8.6-10.3); Creatinine, Serum 0.33 mg/dL (0.51-0.95); Magnesium 1.8 mg/dL (1.9-2.7); Potassium 3.8 mmol/L (3.5-5.0); eGFR CKD-EPI 116.4 (>60)
[2024-04-26 05:38] LABS: Hematocrit 25.4 % (35-45); Hemoglobin 8.7 g/dL (11.5-14.3); Mean Corpuscular Hemoglobin 32.5 pg (27-33); Mean Corpuscular Hgb Conc 34.1 g/dL (31-36); Mean Corpuscular Volume 95.4 fL (80-97); Mean Platelet Volume 7.4 fL (7.5-11.2); Platelet Count 486 10^3/uL (150-450); Red Blood Count 2.66 10^6/uL (3.63-4.92); Red Cell Distribution Width 15.6 % (12-17); White Blood Count 7.7 10^3/uL (3.8-11.8)
[2024-04-26 06:16] LABS: Anion Gap 9 mmol/L (2-16); Blood Urea Nitrogen 4 mg/dL (6-24); CO2 Carbon Dioxide 28 mmol/L (22-32); Calcium 7.7 mg/dL (8.6-10.3); Chloride 102 mmol/L (101-111); Creatinine, Serum 0.35 mg/dL (0.51-0.95); Glucose 87 mg/dL (70-100); Magnesium 1.7 mg/dL (1.9-2.7); Potassium 3.9 mmol/L (3.5-5.0); Sodium 139 mmol/L (135-145); eGFR CKD-EPI 114.8 (>60)
[2024-04-26 08:38] LABS: % Iron Saturation 15 % (15-55); .Transferrin 147 mg/dL (203-362); Iron 30 ug/dL (50-212); Total Iron Binding Capacity 206 mcg/dL (250-450); Unsaturated Iron Binding 176 ug/dL
[2024-04-26] MEDS: Magnesium Sulfate 2 gm BAG 2 GM/50 ML BAG IVPB ONE (08:44)
[2024-04-26 09:00] LABS: Ferritin 335.1 ng/mL (11-307)
[2024-04-26 09:04] LABS: Folate 5.71 ng/mL (5.90-24.80)
[2024-04-26 09:05] LABS: Vitamin B12 > 1450 pg/mL (180-914)
[2024-04-27 06:34] LABS: ABS Basophils 0.1 10^3/uL (0.0-0.1); ABS Eosinophils 0.1 10^3/uL (0.0-0.5); ABS Lymphocytes 1.8 10^3/uL (1.0-4.8); ABS Monocytes 0.9 10^3/uL (0.0-0.9); ABS Neutrophils 4.9 10^3/uL (1.5-7.6); Eosinophil % 1.5 %; Hematocrit 26.9 % (35-45); Hemoglobin 9.2 g/dL (11.5-14.3); Lymphocyte % 22.8 %; Mean Corpuscular Hemoglobin 32.9 pg (27-33); Mean Corpuscular Hgb Conc 34.2 g/dL (31-36); Mean Corpuscular Volume 96.2 fL (80-97); Mean Platelet Volume 7.4 fL (7.5-11.2); Nucleated Red Blood Cells % 0.1 %/100WBC (0.0-0.8); Platelet Count 500 10^3/uL (150-450); Red Blood Count 2.79 10^6/uL (3.63-4.92); Red Cell Distribution Width 16.6 % (12-17); White Blood Count 7.7 10^3/uL (3.8-11.8)
[2024-04-27 06:57] LABS: Calcium 7.8 mg/dL (8.6-10.3); Creatinine, Serum 0.39 mg/dL (0.51-0.95); Potassium 4.1 mmol/L (3.5-5.0); eGFR CKD-EPI 111.8 (>60)
[2024-04-27 13:32] VITALS: BP 125/73
== END 2024-04-27 15:40 | disposition home or self-care (01) ==
LOC: EDHOLD 21:11 → ED 21:11 → SUATTDRO 23:34 → MED 04-22 03:47
PROVIDERS: ADMIT Student in an Organized Health Care Education/Training Program; ATTEND Hospitalist

== ENCOUNTER 2024-08-02 11:34 | Inpatient (IN) ==
[2024-08-02] MEDS: Piperacillin/Tazobac 3.375 BAG 3.375 GM/100 ML BAG IV ONE (12:11)
[2024-08-02 12:18] LABS: ABS Basophils 0.1 10^3/uL (0.0-0.1); ABS Lymphocytes 0.9 10^3/uL (1.0-4.8); ABS Monocytes 0.5 10^3/uL (0.0-0.9); ABS Neutrophils 18.5 10^3/uL (1.5-7.6); ABS Nucleated RBC 0.01 10^3/ul; Eosinophil % 0.1 %; Hematocrit 37.2 % (35-45); Hemoglobin 11.9 g/dL (11.5-14.3); Lymphocyte % 4.3 %; Mean Corpuscular Hemoglobin 28.8 pg (27-33); Mean Corpuscular Hgb Conc 31.9 g/dL (31-36); Mean Corpuscular Volume 90.4 fL (80-97); Mean Platelet Volume 10.9 fL (7.5-11.2); Platelet Count 204 10^3/uL (150-450); Red Blood Count 4.12 10^6/uL (3.63-4.92); Red Cell Distribution Width 14.6 % (12-17); White Blood Count 19.9 10^3/uL (3.8-11.8)
[2024-08-02 12:29] LABS: INR 1.41 (0.85-1.14)
[2024-08-02 12:34] LABS: Albumin 3.3 g/dL (3.2-5.2); Albumin/Globulin Ratio 1.3 (1-3); Calcium 9.1 mg/dL (8.6-10.3); Creatinine, Serum 1.06 mg/dL (0.51-0.95); Globulin 2.5 g/dL (2-4); Potassium 3.4 mmol/L (3.5-5.0); Total Bilirubin 0.8 mg/dL (0.2-1.0); Total Protein 5.8 g/dL (6.4-8.9); eGFR CKD-EPI 58.7 (>60)
[2024-08-02] MEDS: Vancomycin 1,000 MG in NS 0.9% 250 ml 250 ML IVPB ONE (12:52)
[2024-08-02] MEDS: Lactated Ringers SEPSIS* BAG 1,850 ML IV ONE (12:52)
[2024-08-02] MEDS: HYDROcodone/ACETAMIN 5/325 mg TAB PO ONE (13:43)
[2024-08-02] MEDS ORDERED: Albuterol HFA INHALER 8 gm MDI INH PRN (15:17)
[2024-08-02] MEDS ORDERED: Vancomycin per Pharmacy 1 EA NOTE FOLLOW UP SCH (16:00)
[2024-08-02 16:16] LABS: C Reactive Protein 461.93 mg/L (<8.01)
[2024-08-02] MEDS: Enoxaparin 40 MG/0.4 ML SYR SUBCUT SCH (17:34)
[2024-08-02] MEDS: HYDROcodone/ACETAMIN 5/325 mg TAB PO PRN (18:13)
[2024-08-02] MEDS: HYDROmorphone 0.5 MG/0.5 ML SYRINGE IV PRN (21:29)
[2024-08-02] MEDS: Mometasone/Formoter 200/5 MDI INH SCH (22:00)
[2024-08-02] MEDS: Potassium Chlor 20 meq TAB.ER PO ONE (22:02)
[2024-08-02] MEDS: Buprenorp/Nalox 4-1 MG FILM SL SCH (22:09)
[2024-08-02] MEDS: cefTRIAXone 2 gm/50 mL D5W 2 GM/50 ML BAG IV SCH ×2 (23:05→23:26)
[2024-08-03] MEDS: HYDROmorphone 0.5 MG/0.5 ML SYRINGE IV PRN ×2 (02:18→04:46)
[2024-08-03 07:12] LABS: Urine Appearance Turbid; Urine Bilirubin Negative (Negative); Urine Blood Negative (Negative); Urine Color Yellow; Urine Glucose Negative (Negative); Urine Ketones 3+ (Negative); Urine Nitrite Negative (Negative); Urine Protein 1+ (>=30 mg/dL) (Negative); Urine Specific Gravity 1.024 (1.002-1.030); Urine Urobilinogen Negative (Negative); Urine pH 5.5 (5.0-8.0)
[2024-08-03 07:18] LABS: Hematocrit 36.3 % (35-45); Hemoglobin 11.9 g/dL (11.5-14.3); Mean Corpuscular Hemoglobin 29.4 pg (27-33); Mean Corpuscular Hgb Conc 32.7 g/dL (31-36); Mean Corpuscular Volume 89.9 fL (80-97); Mean Platelet Volume 11.2 fL (7.5-11.2); Platelet Count 240 10^3/uL (150-450); Red Blood Count 4.03 10^6/uL (3.63-4.92); Red Cell Distribution Width 14.6 % (12-17); White Blood Count 23.9 10^3/uL (3.8-11.8)
[2024-08-03 07:21] LABS: ABS Lymphocytes 0.3 10^3/uL (1.0-4.8); ABS Monocytes 0.9 10^3/uL (0.0-0.9); ABS Neutrophils 22.7 10^3/uL (1.5-7.6); ABS Nucleated RBC 0.01 10^3/ul; RBC Morphology Normal (Normal)
[2024-08-03 07:26] LABS: Calcium 8.7 mg/dL (8.6-10.3); Creatinine, Serum 0.57 mg/dL (0.51-0.95); Magnesium 1.6 mg/dL (1.9-2.7); Phosphorus 3.2 mg/dL (2.5-5.0); Potassium 3.3 mmol/L (3.5-5.0); Vancomycin Random 3.5 mcg/mL; eGFR CKD-EPI 101.4 (>60)
[2024-08-03] MEDS: Potassium Chlor 20 meq TAB.ER PO ONE (08:06)
[2024-08-03] MEDS: Magnesium Sulfate 2 gm BAG 2 GM/50 ML BAG IVPB ONE (08:10)
[2024-08-03 08:15] LABS: Urine Bacteria Absent /HPF (Absent); Urine Red Blood Cell 1+(3-5/hpf) /HPF (0-Trace); Urine White Blood Cell Trace(0-5/hpf) /HPF (0-Trace)
[2024-08-03] MEDS ORDERED: ceFAZolin 2 GM PREMIX 2 GM/50 ML BAG IVPB SCH (09:00)
[2024-08-03] MEDS ORDERED: LEFLUNOMIDE 10 MG PO SCH (09:00)
[2024-08-03] MEDS ORDERED: ceFAZolin VIAL 2 GM in NS 0.9% 100 ml BAG 100 ML IVPB SCH (09:00)
[2024-08-03] MEDS: ceFAZolin 2 GM PREMIX 2 GM/50 ML BAG IV SCH (09:47)
[2024-08-03] MEDS: Magnesium Sulfate IV 1GM/100ML 1 GM/100 ML BAG IV ONE (10:24)
[2024-08-03] MEDS: Vancomycin Random Level NOTE FOLLOW UP ONE (10:51)
[2024-08-03] MEDS: Sulfur Hexaflouride MICROSPHR 25 MG VIAL IV PRN (13:15)
[2024-08-03] MEDS ORDERED: Sulfur Hexaflouride MICROSPHR 25 MG VIAL ONE (13:39)
[2024-08-03] MEDS: HYDROmorphone 1 MG/1 ML SYRINGE IV PRN (18:00)
[2024-08-03 18:21] LABS: TSH Ultra Thyroid Stim Horm 0.54 mcIU/mL (0.34-5.60)
[2024-08-04 05:49] LABS: Creatinine, Serum 0.48 mg/dL (0.51-0.95); Potassium 3.7 mmol/L (3.5-5.0); eGFR CKD-EPI 105.7 (>60)
[2024-08-04 05:55] LABS: Hematocrit 42.7 % (35-45); Hemoglobin 13.7 g/dL (11.5-14.3); Mean Corpuscular Hemoglobin 29.1 pg (27-33); Mean Corpuscular Hgb Conc 32.2 g/dL (31-36); Mean Corpuscular Volume 90.4 fL (80-97); Mean Platelet Volume 10.8 fL (7.5-11.2); Platelet Count 333 10^3/uL (150-450); Red Blood Count 4.73 10^6/uL (3.63-4.92); Red Cell Distribution Width 14.7 % (12-17); White Blood Count 29.9 10^3/uL (3.8-11.8)
[2024-08-04 06:14] LABS: ABS Eosinophils 0.2 10^3/uL (0.0-0.5); ABS Lymphocytes 0.5 10^3/uL (1.0-4.8); ABS Monocytes 1.2 10^3/uL (0.0-0.9); Eosinophil % 0.8 %; Lymphocyte % 1.8 %
[2024-08-04] MEDS ORDERED: Flumazenil 0.5 mg/5 ml 0.1 MG/ML 5 ml VIAL ONE (08:04)
[2024-08-04] MEDS ORDERED: Naloxone 0.4 mg VIAL 0.4 mg/ml 1 ml VIAL ONE (08:04)
[2024-08-04] MEDS ORDERED: fentaNYL 100 mcg/2 ml 50 MCG/ML VIAL ONE (08:04)
[2024-08-04] MEDS ORDERED: Midazolam 5 mg/5 ml VIAL 1 mg/ml 5 ml VIAL (5 mg) ONE (08:05)
[2024-08-04] MEDS ORDERED: Metoprolol Tartrate 5 mg VIAL 5 ml VIAL (1 mg/ml) ONE (09:57)
[2024-08-04] MEDS: Metoprolol Tartrate 5 mg VIAL 5 ml VIAL (1 mg/ml) IV ONE ×4 (09:59→21:28)
[2024-08-04] MEDS ORDERED: Influenza Vaccine *TRI* 2024-25* 0.5 ML SYRINGE IM ONE (10:00)
[2024-08-04] MEDS: fentaNYL 100 mcg/2 ml 50 MCG/ML VIAL IV SLOW PU ONE (10:15)
[2024-08-04] MEDS: Midazolam 10 mg/10 ml VIAL 1 mg/ml 10 ml VIAL (10 mg) IV SLOW PU ONE (10:15)
[2024-08-04 11:19] LABS: PCO2 Arterial 37 mmHg (35-45); PO2 Arterial 99 mmHg (80-100)
[2024-08-04] MEDS: Flumazenil 0.5 mg/5 ml 0.1 MG/ML 5 ml VIAL IV ONE (12:42)
[2024-08-04] MEDS: Oxacillin 2 GM in NS 0.9% 100 ml BAG 100 ML IVPB SCH (13:59)
[2024-08-04 20:36] LABS: PCO2 Arterial 27 mmHg (35-45); PO2 Arterial 82 mmHg (80-100)
[2024-08-04 23:20] LABS: Urine Benzodiazepine Screen Presumptive Positive (None Detect); Urine Cannabinoids Screen Presumptive Positive (None Detect); Urine Opiates Screen Presumptive Positive (None Detect)
[2024-08-05 00:45] LABS: Free T4 1.16 ng/dL (0.61-1.12)
[2024-08-05 00:51] LABS: ABS Eosinophils 0.1 10^3/uL (0.0-0.5); ABS Lymphocytes 0.7 10^3/uL (1.0-4.8); ABS Monocytes 0.9 10^3/uL (0.0-0.9); ABS Neutrophils 13.8 10^3/uL (1.5-7.6); ABS Nucleated RBC 0.01 10^3/ul; Eosinophil % 0.3 %; Hematocrit 47.9 % (35-45); Hemoglobin 15.3 g/dL (11.5-14.3); Lymphocyte % 4.4 %; Mean Corpuscular Volume 90.5 fL (80-97); Mean Platelet Volume 9.8 fL (7.5-11.2); Nucleated Red Blood Cells % 0.1 %/100WBC (0.0-0.8); Platelet Count 372 10^3/uL (150-450); Red Cell Distribution Width 14.7 % (12-17); White Blood Count 15.5 10^3/uL (3.8-11.8)
[2024-08-05] MEDS: Lactated Ringers 1000 ml BAG 1,000 ML IV ONE (01:24)
[2024-08-05 01:41] LABS: Calcium 8.8 mg/dL (8.6-10.3); Creatinine, Serum 0.61 mg/dL (0.51-0.95); Potassium 4.4 mmol/L (3.5-5.0); Total Bilirubin 0.5 mg/dL (0.2-1.0); eGFR CKD-EPI 99.8 (>60)
[2024-08-05 01:47] LABS: Urine Appearance Clear; Urine Bilirubin Negative (Negative); Urine Blood 1+ (Negative); Urine Color Yellow; Urine Glucose Negative (Negative); Urine Ketones 2+ (Negative); Urine Nitrite Negative (Negative); Urine Protein 2+ (>=100 mg/dL) (Negative); Urine Specific Gravity 1.029 (1.002-1.030); Urine Urobilinogen Negative (Negative)
[2024-08-05] MEDS: Acetaminophen IV 1 GM/100ML 1,000 MG/100 ML BAG IV ONE (01:47)
[2024-08-05 02:16] LABS: Urine Bacteria Absent /HPF (Absent); Urine Red Blood Cell Trace(0-2/hpf) /HPF (0-Trace); Urine Squamous Epithelial Cell Present /HPF (Absent); Urine White Blood Cell Trace(0-5/hpf) /HPF (0-Trace)
[2024-08-05] MEDS ORDERED: Lorazepam PYXIS KEY PRN (03:45)
[2024-08-05] MEDS: LORazepam 2 mg VIAL 1 ml IV PUSH ONE (03:52)
[2024-08-05] MEDS ORDERED: Zosyn per Pharmacy NOTE FOLLOW UP SCH (05:00)
[2024-08-05] MEDS: Iohexol 350 (CONTRAST) 500 ML MDV IV ONE (05:04)
[2024-08-05] MEDS: Piperacillin/Tazobac 3.375 BAG 3.375 GM/100 ML BAG IV ONE (05:46)
[2024-08-05 06:36] LABS: Hematocrit 46.5 % (35-45); Hemoglobin 15.4 g/dL (11.5-14.3); Mean Corpuscular Hgb Conc 33.2 g/dL (31-36); Mean Corpuscular Volume 90.4 fL (80-97); Red Blood Count 5.14 10^6/uL (3.63-4.92); Red Cell Distribution Width 14.8 % (12-17); White Blood Count 10.8 10^3/uL (3.8-11.8)
[2024-08-05 07:04] LABS: ABS Lymphocytes 0.8 10^3/uL (1.0-4.8); ABS Monocytes 0.8 10^3/uL (0.0-0.9); ABS Neutrophils 9.1 10^3/uL (1.5-7.6); ABS Nucleated RBC 0.01 10^3/ul; Calcium 8.5 mg/dL (8.6-10.3); Creatinine, Serum 0.69 mg/dL (0.51-0.95); Eosinophil % 0.1 %; Lymphocyte % 7.8 %; Magnesium 2.1 mg/dL (1.9-2.7); Nucleated Red Blood Cells % 0.1 %/100WBC (0.0-0.8); Platelet Count Platelets clumped. 10^3/uL (150-450); Potassium 4.4 mmol/L (3.5-5.0); eGFR CKD-EPI 96.9 (>60)
[2024-08-05] MEDS ORDERED: Etomidate 40 mg/20 ml (2 MG/ML) 20 ml VIAL (40 mg) ONE (10:32)
[2024-08-05] MEDS ORDERED: Rocuronium 50 mg VIAL 10 mg/ml 5 ml VIAL (50 mg) ONE (10:32)
[2024-08-05] MEDS: Norepinephrine 4 MG/250mL D5W 4,000 MCG/250 ML BAG IV SCH (10:35)
[2024-08-05] MEDS: Propofol 10 mg/ml 100 ML BTL 1,000 MG/100 ML BTL IV SCH (10:40)
[2024-08-05] MEDS: fentaNYL 100 mcg/2 ml 50 MCG/ML VIAL IV SLOW PU ONE (10:44)
[2024-08-05] MEDS: ZOSYN 3.375 GM Q8H per EXTENDED INFUSION IV SCH (11:10)
[2024-08-05] MEDS ORDERED: fentaNYL 100 mcg/2 ml 50 MCG/ML VIAL IV SLOW PU PRN (11:25)
[2024-08-05] MEDS: Midazolam 2 mg/2 ml VIAL 1 mg/ml 2 ml VIAL (2 mg) IV SLOW PU ONE (11:28)
[2024-08-05] MEDS: Rocuronium 50 mg VIAL 10 mg/ml 5 ml VIAL (50 mg) ONE (11:49)
[2024-08-05] MEDS: Phenylephrine 40 mcg/mL 10mL (400mcg) SYRINGE ONE (11:49)
[2024-08-05] MEDS: Norepinephrine 4 MG/250mL D5W 4,000 MCG/250 ML BAG IV ONE (11:49)
[2024-08-05] MEDS: Succinylcholine 200 mg VIAL 20 mg/ml 10 ml VIAL (200 mg) ONE (11:49)
[2024-08-05] MEDS: Propofol 10 mg/ml 100 ML BTL 1,000 MG/100 ML BTL ONE (11:50)
[2024-08-05] MEDS: fentaNYL INFUSION 50 mcg/mL VL 2,500 MCG/50 ML VIAL IV SCH (12:04)
[2024-08-05] MEDS: HYDROmorphone 0.5 MG/0.5 ML SYRINGE IV SLOW PU ONE (12:11)
[2024-08-05] MEDS: fentaNYL 100 mcg/2 ml 50 MCG/ML VIAL ONE (12:13)
[2024-08-05] MEDS: Midazolam 5 mg/5 ml VIAL 1 mg/ml 5 ml VIAL (5 mg) ONE (12:13)
[2024-08-05] MEDS: Famotidine IV 10 MG/ML 2 ml VIAL (20 mg) IV SLOW PU SCH (14:58)
[2024-08-05] MEDS: Chlorhexidine MOUTHWASH 0.12% 15 ML UDC TOPICAL SCH (15:04)
[2024-08-06 04:48] LABS: ABS Lymphocytes 2.1 10^3/uL (1.0-4.8); ABS Monocytes 1.2 10^3/uL (0.0-0.9); ABS Neutrophils 6.9 10^3/uL (1.5-7.6); ABS Nucleated RBC 0.01 10^3/ul; Hematocrit 38.7 % (35-45); Lymphocyte % 20.9 %; Mean Corpuscular Hemoglobin 30.1 pg (27-33); Mean Corpuscular Hgb Conc 33.7 g/dL (31-36); Mean Corpuscular Volume 89.4 fL (80-97); Mean Platelet Volume 9.5 fL (7.5-11.2); Nucleated Red Blood Cells % 0.1 %/100WBC (0.0-0.8); Platelet Count 266 10^3/uL (150-450); Red Blood Count 4.33 10^6/uL (3.63-4.92); Red Cell Distribution Width 14.5 % (12-17); White Blood Count 10.3 10^3/uL (3.8-11.8)
[2024-08-06 05:15] LABS: Calcium 7.3 mg/dL (8.6-10.3); Creatinine, Serum 0.92 mg/dL (0.51-0.95); Magnesium 2.2 mg/dL (1.9-2.7); Phosphorus 4.6 mg/dL (2.5-5.0); Potassium 3.9 mmol/L (3.5-5.0); eGFR CKD-EPI 69.5 (>60)
[2024-08-06] MEDS: Pantoprazole VIAL 40 MG VIAL IV SCH (08:30)
[2024-08-06] MEDS: Influenza Vaccine *TRI* 2024-25* 0.5 ML SYRINGE IM ONE (08:31)
[2024-08-06] MEDS: Acetaminophen IV 1 GM/100ML 1,000 MG/100 ML BAG IV PRN (12:03)
[2024-08-06] MEDS: Oxacillin 2 GM in NS 0.9% 100 ml BAG 100 ML IVPB SCH (18:15)
[2024-08-06] MEDS: Gadoteridol (CONTRAST) 279.3 MG/ML 10 ML IV ONE (21:28)
[2024-08-06 22:42] VITALS: BP 97/74
[2024-08-07 04:33] LABS: ABS Basophils 0.1 10^3/uL (0.0-0.1); ABS Lymphocytes 1.5 10^3/uL (1.0-4.8); ABS Neutrophils 9.3 10^3/uL (1.5-7.6); Eosinophil % 0.1 %; Hematocrit 35.7 % (35-45); Hemoglobin 11.7 g/dL (11.5-14.3); Lymphocyte % 12.4 %; Mean Corpuscular Hemoglobin 29.3 pg (27-33); Mean Corpuscular Hgb Conc 32.8 g/dL (31-36); Mean Corpuscular Volume 89.2 fL (80-97); Mean Platelet Volume 9.4 fL (7.5-11.2); Platelet Count 230 10^3/uL (150-450); Red Cell Distribution Width 14.6 % (12-17); White Blood Count 11.9 10^3/uL (3.8-11.8)
[2024-08-07 05:20] LABS: Calcium 7.1 mg/dL (8.6-10.3); Creatinine, Serum 0.89 mg/dL (0.51-0.95); Magnesium 2.1 mg/dL (1.9-2.7); Phosphorus 3.3 mg/dL (2.5-5.0); eGFR CKD-EPI 72.4 (>60)
== END 2024-08-07 09:15 | disposition short-term general hospital (02) | DRG 871 ==
LOC: ED 11:34 → EDHOLD 13:57 → SUATTDRO 13:57 → SSU 20:25 → ICU 08-04 11:50
PROVIDERS: ADMIT Internal Medicine; ATTEND Internal Medicine Critical Care Medicine

== ENCOUNTER 2024-10-07 02:16 | Observation (INO) ==
[2024-10-07 03:28] LABS: Potassium 2.3 mmol/L (3.5-5.0)
[2024-10-07] MEDS: Potassium Chlor 20 meq TAB.ER PO ONE (03:48)
[2024-10-07 03:53] LABS: Calcium 7.4 mg/dL (8.6-10.3); Creatinine, Serum 0.37 mg/dL (0.51-0.95); Magnesium 1.4 mg/dL (1.9-2.7); eGFR CKD-EPI 112.5 (>60)
[2024-10-07] MEDS: KCL 10 MEQ/50 ML IVPREMIX 10 MEQ/50 ML BAG IV SCH ×2 (04:09→07:25)
[2024-10-07] MEDS: HYDROcodone/Acetamin 10/325 TAB (NF) PO ONE (07:02)
[2024-10-07] MEDS: Magnesium Sulfate 2 gm BAG 2 GM/50 ML BAG IVPB ONE ×2 (07:54→18:36)
[2024-10-07] MEDS ORDERED: Ondansetron 4 mg VIAL 2 MG/ML 2 ml VIAL IV PRN (09:12)
[2024-10-07] MEDS ORDERED: Albuterol HFA INHALER 8 gm MDI INH PRN (09:20)
[2024-10-07] MEDS: Enoxaparin 40 MG/0.4 ML SYR SUBCUT SCH (13:19)
[2024-10-07] MEDS: HYDROcodone/ACETAMIN 5/325 mg TAB PO PRN (13:20)
[2024-10-07 17:09] LABS: Albumin 2.3 g/dL (3.2-5.2); Albumin/Globulin Ratio 1.2 (1-3); Calcium 7.1 mg/dL (8.6-10.3); Creatinine, Serum 0.56 mg/dL (0.51-0.95); Magnesium 1.8 mg/dL (1.9-2.7); Potassium 3.1 mmol/L (3.5-5.0); Total Bilirubin 0.2 mg/dL (0.2-1.0); Total Protein 4.3 g/dL (6.4-8.9); eGFR CKD-EPI 101.8 (>60)
[2024-10-07] MEDS: Oxacillin 2 GM in NS 0.9% 100 ml BAG 100 ML IVPB SCH (17:57)
[2024-10-07] MEDS: Potassium Chlor 20 meq TAB.ER PO SCH (20:14)
[2024-10-08 06:58] LABS: Creatinine, Serum 0.34 mg/dL (0.51-0.95); Magnesium 1.9 mg/dL (1.9-2.7); Potassium 3.4 mmol/L (3.5-5.0); eGFR CKD-EPI 114.9 (>60)
[2024-10-08 09:45] VITALS: BP 123/71
[2024-10-08] MEDS: Calcium Carb (TUMS) 500 mg CHEW TAB PO SCH (09:51)
[2024-10-08] MEDS: Potassium Chlor 20 meq TAB.ER PO ONE (09:55)
[2024-10-08] MEDS: Mometasone/Formoter 200/5 MDI INH SCH (10:01)
== END 2024-10-08 12:42 | disposition home or self-care (01) ==
LOC: EDHOLD 02:16 → ED 02:16 → MED 10:56
PROVIDERS: ADMIT Student in an Organized Health Care Education/Training Program; ATTEND Student in an Organized Health Care Education/Training Program

== ENCOUNTER 2024-10-12 12:19 | Inpatient (IN) ==
[2024-10-12] MEDS: Morphine 4 MG/ML VIAL (1 ml) IV ONE ×2 (13:13→17:40)
[2024-10-12 13:23] LABS: ABS Basophils 0.2 10^3/uL (0.0-0.1); ABS Eosinophils 0.1 10^3/uL (0.0-0.5); ABS Lymphocytes 1.1 10^3/uL (1.0-4.8); ABS Monocytes 0.8 10^3/uL (0.0-0.9); ABS Neutrophils 9.7 10^3/uL (1.5-7.6); Eosinophil % 0.7 %; Hematocrit 35.9 % (35-45); Hemoglobin 12.1 g/dL (11.5-14.3); Lymphocyte % 9.6 %; Mean Corpuscular Hemoglobin 33.6 pg (27-33); Mean Corpuscular Hgb Conc 33.8 g/dL (31-36); Mean Corpuscular Volume 99.3 fL (80-97); Platelet Count 419 10^3/uL (150-450); Red Blood Count 3.62 10^6/uL (3.63-4.92); Red Cell Distribution Width 18.1 % (12-17); White Blood Count 11.8 10^3/uL (3.8-11.8)
[2024-10-12 13:52] LABS: INR 1.11 (0.85-1.14)
[2024-10-12 14:16] LABS: Albumin 2.8 g/dL (3.2-5.2); Albumin/Globulin Ratio 1.2 (1-3); Calcium 8.6 mg/dL (8.6-10.3); Creatinine, Serum 0.4 mg/dL (0.51-0.95); Globulin 2.3 g/dL (2-4); Potassium 4.1 mmol/L (3.5-5.0); Total Bilirubin 0.2 mg/dL (0.2-1.0); Total Protein 5.1 g/dL (6.4-8.9); eGFR CKD-EPI 110.5 (>60)
[2024-10-12 14:52] LABS: High Sensitivity Troponin 1 Hr 5 pg/mL (<15)
[2024-10-12] MEDS: Lactated Ringers 1000 ml BAG 1,000 ML IV ONE ×2 (16:35→21:00)
[2024-10-12 16:41] LABS: Urine Appearance Turbid; Urine Bilirubin Negative (Negative); Urine Blood 2+ (Negative); Urine Color Yellow; Urine Glucose Negative (Negative); Urine Ketones Negative (Negative); Urine Nitrite Negative (Negative); Urine Protein 2+ (>=100 mg/dL) (Negative); Urine Specific Gravity 1.032 (1.002-1.030); Urine Urobilinogen Negative (Negative)
[2024-10-12 16:49] LABS: Budding Yeast Present /HPF (Absent); Urine Bacteria 1+ /HPF (Absent); Urine Red Blood Cell 3+(>10/hpf) /HPF (0-Trace); Urine Squamous Epithelial Cell Present /HPF (Absent); Urine White Blood Cell 3+(>20/hpf) /HPF (0-Trace)
[2024-10-12] MEDS: Piperacillin/Tazobac 3.375 BAG 3.375 GM/100 ML BAG IV ONE (17:30)
[2024-10-12] MEDS ORDERED: LORazepam 2 MG/ML 1 mL Syringe IV ONE (18:56)
[2024-10-12] MEDS: LORazepam 2 mg VIAL 1 ml IV PUSH ONE (19:03)
[2024-10-12] MEDS ORDERED: Senna TAB 8.6 mg TAB PO PRN (19:10)
[2024-10-12] MEDS: Enoxaparin 40 MG/0.4 ML SYR SUBCUT SCH (20:59)
[2024-10-12 21:04] LABS: Urine Benzodiazepine Screen None Detected (None Detect); Urine Cannabinoids Screen Presumptive Positive (None Detect); Urine Opiates Screen Presumptive Positive (None Detect)
[2024-10-13] MEDS: Cefepime 1 GM in Dextrose 1 GM/50 ML BAG IV SCH (00:46)
[2024-10-13] MEDS ORDERED: Cefepime ADVAN 1 GM in NS 0.9% 50 ML 50 ML IVPB SCH (01:00)
[2024-10-13] MEDS: LORazepam 2 mg VIAL 1 ml IV PUSH SCH (01:18)
[2024-10-13] MEDS: Fluconazole 200 MG IVPREMIX 200 MG/100 ML BAG IVPB ONE (02:20)
[2024-10-13] MEDS: Lactated Ringers 1000 ml BAG 1,000 ML IV ONE (05:38)
[2024-10-13 06:01] LABS: ABS Basophils 0.1 10^3/uL (0.0-0.1); ABS Eosinophils 0.1 10^3/uL (0.0-0.5); ABS Lymphocytes 2.2 10^3/uL (1.0-4.8); ABS Monocytes 0.6 10^3/uL (0.0-0.9); ABS Neutrophils 6.9 10^3/uL (1.5-7.6); Eosinophil % 1.4 %; Hematocrit 33.8 % (35-45); Hemoglobin 11.5 g/dL (11.5-14.3); Lymphocyte % 22.3 %; Mean Corpuscular Hemoglobin 33.7 pg (27-33); Mean Platelet Volume 7.9 fL (7.5-11.2); Platelet Count 360 10^3/uL (150-450); Red Blood Count 3.41 10^6/uL (3.63-4.92); Red Cell Distribution Width 18.7 % (12-17)
[2024-10-13 06:59] LABS: Albumin 2.7 g/dL (3.2-5.2); Albumin/Globulin Ratio 1.2 (1-3); Calcium 8.7 mg/dL (8.6-10.3); Creatinine, Serum 0.41 mg/dL (0.51-0.95); Globulin 2.2 g/dL (2-4); Magnesium 1.7 mg/dL (1.9-2.7); Potassium 4.1 mmol/L (3.5-5.0); Total Bilirubin 0.3 mg/dL (0.2-1.0); Total Protein 4.9 g/dL (6.4-8.9); eGFR CKD-EPI 109.8 (>60)
[2024-10-13] MEDS: Acetaminophen IV 1 GM/100ML 1,000 MG/100 ML BAG IV PRN (08:59)
[2024-10-13] MEDS ORDERED: Lorazepam PYXIS KEY PRN (09:39)
[2024-10-13] MEDS ORDERED: LORazepam 2 mg VIAL 1 ml IV PUSH PRN (09:39)
[2024-10-13] MEDS: LORazepam 2 mg VIAL 1 ml IV PUSH PRN (09:54)
[2024-10-13] MEDS ORDERED: OXACILLIN IV SCH (11:30)
[2024-10-13] MEDS: Magnesium Sulfate 2 gm BAG 2 GM/50 ML BAG IVPB ONE ×2 (12:41→13:57)
[2024-10-13] MEDS: Magnesium Sulfate IV 1GM/100ML 1 GM/100 ML BAG IV ONE ×2 (12:42→15:16)
[2024-10-13] MEDS ORDERED: Cefepime 1 GM in Dextrose 1 GM/50 ML BAG IV SCH (13:00)
[2024-10-13] MEDS: Oxacillin 2 GM in NS 0.9% 100 ML BAG IVPB SCH ×2 (16:16→17:36)
[2024-10-13 17:21] LABS: TSH Ultra Thyroid Stim Horm 2.78 mcIU/mL (0.34-5.60)
[2024-10-13] MEDS: Lactated Ringers 1000 ml BAG 1,000 ML IV SCH (17:40)
[2024-10-13] MEDS: cefTRIAXone 1 gm/50 mL D5W 1 GM/50 ML BAG IV SCH (18:42)
[2024-10-13] MEDS: Iohexol 350 (CONTRAST) 500 ML MDV IV ONE (23:34)
[2024-10-14] MEDS: Heparin 5000 UNITS/ML 1 mL VIAL IV SCH (00:40)
[2024-10-14] MEDS: Heparin DRIP 25,000 UNITS BAG 25,000 UNITS/250 ML BAG IV SCH (00:41)
[2024-10-14] MEDS: Morphine 2 MG/ML SYRINGE IV PRN ×2 (01:29→16:59)
[2024-10-14 06:40] LABS: ABS Eosinophils 0.1 10^3/uL (0.0-0.5); ABS Lymphocytes 1.7 10^3/uL (1.0-4.8); ABS Monocytes 0.4 10^3/uL (0.0-0.9); ABS Neutrophils 2.8 10^3/uL (1.5-7.6); Eosinophil % 2.3 %; Hematocrit 26.8 % (35-45); Hemoglobin 9.2 g/dL (11.5-14.3); Lymphocyte % 32.8 %; Mean Corpuscular Hemoglobin 33.9 pg (27-33); Mean Corpuscular Hgb Conc 34.3 g/dL (31-36); Mean Corpuscular Volume 98.8 fL (80-97); Mean Platelet Volume 8.2 fL (7.5-11.2); Nucleated Red Blood Cells % 0.1 %/100WBC (0.0-0.8); Platelet Count 270 10^3/uL (150-450); Red Blood Count 2.72 10^6/uL (3.63-4.92); Red Cell Distribution Width 18.6 % (12-17); White Blood Count 5.1 10^3/uL (3.8-11.8)
[2024-10-14 07:47] LABS: Anion Gap 10 mmol/L (2-16); Blood Urea Nitrogen 9 mg/dL (6-24); CO2 Carbon Dioxide 25 mmol/L (22-32); Calcium 7.6 mg/dL (8.6-10.3); Chloride 105 mmol/L (101-111); Creatinine, Serum < 0.30 mg/dL (0.51-0.95); Glucose 79 mg/dL (70-100); Magnesium 1.8 mg/dL (1.9-2.7); Sodium 140 mmol/L (135-145); eGFR CKD-EPI 118.4 (>60)
[2024-10-14 10:00] LABS: Phosphorus 3.5 mg/dL (2.5-5.0); Potassium Redraw 3.2 mmol/L (3.5-5.0)
[2024-10-14] MEDS ORDERED: Sulfur Hexaflouride MICROSPHR 25 MG VIAL IV PRN (11:26)
[2024-10-14] MEDS: Lidocaine 4% CREAM (LMX) 5 GM TUBE TOPICAL ONE (15:16)
[2024-10-14] MEDS: Potassium Chlor 20 meq TAB.ER PO ONE (16:54)
[2024-10-14] MEDS: Cefepime 1 GM in Dextrose 1 GM/50 ML BAG IV SCH (18:09)
[2024-10-14] MEDS: Buprenorp/Nalox 8-2 MG FILM SL SCH (20:43)
[2024-10-15 06:29] LABS: ABS Basophils 0.1 10^3/uL (0.0-0.1); ABS Eosinophils 0.2 10^3/uL (0.0-0.5); ABS Lymphocytes 1.6 10^3/uL (1.0-4.8); ABS Monocytes 0.4 10^3/uL (0.0-0.9); ABS Neutrophils 2.8 10^3/uL (1.5-7.6); ABS Nucleated RBC 0.01 10^3/ul; Eosinophil % 3.3 %; Hematocrit 29.5 % (35-45); Lymphocyte % 32.2 %; Mean Corpuscular Hemoglobin 33.3 pg (27-33); Mean Corpuscular Hgb Conc 33.8 g/dL (31-36); Mean Corpuscular Volume 98.5 fL (80-97); Mean Platelet Volume 7.8 fL (7.5-11.2); Nucleated Red Blood Cells % 0.2 %/100WBC (0.0-0.8); Platelet Count 299 10^3/uL (150-450); Red Cell Distribution Width 18.6 % (12-17)
[2024-10-15 07:24] LABS: Potassium 3.9 mmol/L (3.5-5.0)
[2024-10-15 07:25] LABS: Calcium 7.8 mg/dL (8.6-10.3); Creatinine, Serum 0.32 mg/dL (0.51-0.95); Magnesium 1.6 mg/dL (1.9-2.7); eGFR CKD-EPI 116.6 (>60)
[2024-10-15] MEDS: Magnesium Sulf 4 GM/100 ML IV 4,000 MG/100 ML BAG IVPB ONE (09:55)
[2024-10-15 14:16] VITALS: BP 135/81
== END 2024-10-15 18:23 | disposition home or self-care (01) | DRG 70 ==
LOC: ED 12:19 → EDHOLD 12:19 → SUATTDRO 19:10 → MEDTELE 10-13 04:02
PROVIDERS: ADMIT Internal Medicine; ATTEND Student in an Organized Health Care Education/Training Program

== ENCOUNTER 2024-11-01 22:29 | Observation (INO) ==
[2024-11-01 23:33] LABS: Urine Appearance Turbid; Urine Bilirubin Negative (Negative); Urine Blood 2+ (Negative); Urine Glucose Negative (Negative); Urine Ketones 1+ (Negative); Urine Nitrite 2+ (Negative); Urine Protein 1+ (>=30 mg/dL) (Negative); Urine Specific Gravity 1.022 (1.002-1.030); Urine Urobilinogen Negative (Negative); Urine pH 8.5 (5.0-8.0)
[2024-11-01 23:41] LABS: Urine Bacteria 2+ /HPF (Absent); Urine Red Blood Cell 3+(>10/hpf) /HPF (0-Trace); Urine Squamous Epithelial Cell Present /HPF (Absent); Urine White Blood Cell 3+(>20/hpf) /HPF (0-Trace)
[2024-11-01 23:44] LABS: Urine Color Light-Orange
[2024-11-02] MEDS: cefTRIAXone 1 gm/50 mL D5W 1 GM/50 ML BAG IV ONE (00:10)
[2024-11-02 00:25] LABS: ABS Eosinophils 0.1 10^3/uL (0.0-0.5); ABS Lymphocytes 2.8 10^3/uL (1.0-4.8); ABS Neutrophils 7.4 10^3/uL (1.5-7.6); ABS Nucleated RBC 0.01 10^3/ul; Eosinophil % 0.8 %; Hematocrit 33.8 % (35-45); Hemoglobin 11.4 g/dL (11.5-14.3); Lymphocyte % 24.7 %; Mean Corpuscular Hemoglobin 32.8 pg (27-33); Mean Corpuscular Hgb Conc 33.7 g/dL (31-36); Mean Corpuscular Volume 97.2 fL (80-97); Mean Platelet Volume 7.7 fL (7.5-11.2); Nucleated Red Blood Cells % 0.1 %/100WBC (0.0-0.8); Platelet Count 499 10^3/uL (150-450); Red Blood Count 3.48 10^6/uL (3.63-4.92); Red Cell Distribution Width 16.4 % (12-17); White Blood Count 11.3 10^3/uL (3.8-11.8)
[2024-11-02] MEDS: Lactated Ringers 1000 ml BAG 1,000 ML IV ONE (00:36)
[2024-11-02] MEDS: Acetaminophen IV 1 GM/100ML 1,000 MG/100 ML BAG IV ONE (00:36)
[2024-11-02 00:41] LABS: Activated Partial Thrombo Time 33.3 seconds (26.0-38.0); INR 1.25 (0.85-1.14)
[2024-11-02 00:47] LABS: High Sens Troponin Baseline 7 pg/mL (<15)
[2024-11-02 01:17] LABS: ALT 18 U/L (7-52); AST 13 U/L (13-39); Albumin 3.6 g/dL (3.5-5.7); Albumin/Globulin Ratio 1.4 (1-3); Alkaline Phosphatase 75 U/L (35-149); Anion Gap 13 mmol/L (2-16); Blood Urea Nitrogen 20 mg/dL (6-24); CO2 Carbon Dioxide 21 mmol/L (22-32); Calcium 9.4 mg/dL (8.6-10.3); Chloride 106 mmol/L (101-111); Creatinine, Serum 0.47 mg/dL (0.51-0.95); Globulin 2.6 g/dL (2-4); Glucose 99 mg/dL (70-100); Potassium 3.8 mmol/L (3.5-5.0); Sodium 140 mmol/L (135-145); Total Bilirubin 0.3 mg/dL (0.2-1.0); Total Protein 6.2 g/dL (6.4-8.9); eGFR CKD-EPI 106.2 (>60)
[2024-11-02 01:45] LABS: Erythrocyte Sed Rate 42 mm/Hr (0-29)
[2024-11-02 01:45] LABS: High Sensitivity Troponin 1 Hr 6 pg/mL (<15)
[2024-11-02] MEDS ORDERED: Albuterol HFA INHALER 8 gm MDI INH PRN (01:52)
[2024-11-02] MEDS: HYDROmorphone 1 MG/1 ML SYRINGE IV PRN (03:42)
[2024-11-02 04:08] LABS: Urine Benzodiazepine Screen None Detected (None Detect); Urine Cannabinoids Screen Presumptive Positive (None Detect); Urine Opiates Screen Presumptive Positive (None Detect)
[2024-11-02] MEDS: Acetaminophen IV 1 GM/100ML 1,000 MG/100 ML BAG IV SCH (05:53)
[2024-11-02 09:17] LABS: Acetaminophen < 15 mcg/mL
[2024-11-02] MEDS ORDERED: Buprenorp/Nalox 8-2 MG FILM SL SCH ×2 (13:00→21:00)
[2024-11-02 14:39] LABS: Magnesium 1.8 mg/dL (1.9-2.7)
[2024-11-02] MEDS: Magnesium Sulfate IV 1GM/100ML 1 GM/100 ML BAG IV ONE (20:54)
[2024-11-02 20:59] LABS: % Iron Saturation 10 % (15-55); .Transferrin 218 mg/dL (203-362); Iron 32 ug/dL (50-212); Total Iron Binding Capacity 305 mcg/dL (250-450); Unsaturated Iron Binding 273 ug/dL
[2024-11-02 21:21] LABS: Ferritin 83.8 ng/mL (11-307)
[2024-11-02 21:24] LABS: Folate > 20.00 ng/mL (5.90-24.80)
[2024-11-02 21:25] LABS: Vitamin B12 314 pg/mL (180-914)
[2024-11-02] MEDS: cefTRIAXone 1 gm/50 mL D5W 1 GM/50 ML BAG IV SCH (22:55)
[2024-11-03] MEDS: Morphine 2 MG/ML SYRINGE IV PRN (04:28)
[2024-11-03 06:14] LABS: Calcium 8.9 mg/dL (8.6-10.3); Creatinine, Serum 0.52 mg/dL (0.51-0.95); Potassium 4.3 mmol/L (3.5-5.0); eGFR CKD-EPI 103.7 (>60)
[2024-11-03 06:15] LABS: ABS Basophils 0.1 10^3/uL (0.0-0.1); ABS Eosinophils 0.2 10^3/uL (0.0-0.5); ABS Lymphocytes 2.3 10^3/uL (1.0-4.8); ABS Monocytes 0.5 10^3/uL (0.0-0.9); ABS Neutrophils 3.2 10^3/uL (1.5-7.6); ABS Nucleated RBC 0.01 10^3/ul; Eosinophil % 3.9 %; Hemoglobin 10.5 g/dL (11.5-14.3); Lymphocyte % 35.8 %; Mean Corpuscular Hemoglobin 33.2 pg (27-33); Mean Corpuscular Hgb Conc 33.8 g/dL (31-36); Mean Corpuscular Volume 98.3 fL (80-97); Nucleated Red Blood Cells % 0.1 %/100WBC (0.0-0.8); Platelet Count 404 10^3/uL (150-450); Red Blood Count 3.16 10^6/uL (3.63-4.92); Red Cell Distribution Width 16.3 % (12-17); White Blood Count 6.3 10^3/uL (3.8-11.8)
[2024-11-03 06:15] LABS: Urine Appearance Turbid; Urine Bilirubin Negative (Negative); Urine Blood 2+ (Negative); Urine Color Yellow; Urine Glucose Negative (Negative); Urine Ketones Negative (Negative); Urine Nitrite Negative (Negative); Urine Protein 1+ (>=30 mg/dL) (Negative); Urine Specific Gravity 1.039 (1.002-1.030); Urine Urobilinogen Negative (Negative)
[2024-11-03 07:00] LABS: Urine Bacteria Absent /HPF (Absent); Urine Red Blood Cell 3+(>10/hpf) /HPF (0-Trace); Urine Squamous Epithelial Cell Present /HPF (Absent); Urine White Blood Cell 3+(>20/hpf) /HPF (0-Trace)
[2024-11-03] MEDS ORDERED: HYDROcodone/Acetamin 10/325 TAB (NF) PO PRN (13:05)
[2024-11-03] MEDS: Morphine 2 MG/ML SYRINGE IV ONE (19:14)
[2024-11-04 07:16] LABS: ABS Basophils 0.1 10^3/uL (0.0-0.1); ABS Eosinophils 0.2 10^3/uL (0.0-0.5); ABS Monocytes 0.4 10^3/uL (0.0-0.9); ABS Neutrophils 3.1 10^3/uL (1.5-7.6); ABS Nucleated RBC 0.01 10^3/ul; Eosinophil % 3.7 %; Hematocrit 33.5 % (35-45); Hemoglobin 11.1 g/dL (11.5-14.3); Lymphocyte % 34.5 %; Mean Corpuscular Hemoglobin 32.9 pg (27-33); Mean Corpuscular Hgb Conc 33.1 g/dL (31-36); Mean Corpuscular Volume 99.4 fL (80-97); Mean Platelet Volume 8.3 fL (7.5-11.2); Nucleated Red Blood Cells % 0.1 %/100WBC (0.0-0.8); Platelet Count 414 10^3/uL (150-450); Red Blood Count 3.38 10^6/uL (3.63-4.92); Red Cell Distribution Width 15.7 % (12-17); White Blood Count 5.8 10^3/uL (3.8-11.8)
[2024-11-04 07:30] LABS: Creatinine, Serum 0.37 mg/dL (0.51-0.95); Magnesium 1.7 mg/dL (1.9-2.7); eGFR CKD-EPI 112.5 (>60)
[2024-11-04] MEDS: HYDROcodone/Acetamin 10/325 TAB (NF) PO PRN (09:57)
[2024-11-04] MEDS: Magnesium Sulfate 2 gm BAG 2 GM/50 ML BAG IVPB ONE (09:58)
[2024-11-04 10:01] VITALS: BP 109/77
== END 2024-11-04 13:24 | disposition home or self-care (01) ==
LOC: ED 22:29 → EDHOLD 22:29 → SUATTDRO 11-02 01:57 → MEDTELE 11-02 04:29
PROVIDERS: ADMIT Hospitalist; ATTEND Student in an Organized Health Care Education/Training Program